=== PATIENT | female | born 1965 | race Caucasian/White ===

== ENCOUNTER 2021-01-23 18:26 | Inpatient (IN) | payer OTHER, SELFPAY ==
[~2021-01-23] VITALS: Ht 154.9 cm; Wt 94.5 kg
[2021-01-23] MEDS ORDERED: ETOMIDATE INJ 20MG/10ML VIAL IV STA (19:08)
[2021-01-23] MEDS ORDERED: ROCURONIUM BROMIDE 50 MG/5 ML VIAL IV ONE (19:10)
[2021-01-23 19:30] LABS: BASO % 0.1 % (0.0-1.0); HEMATOCRIT 39.5 % (36.0-47.0); LYMPH # 0.8 10^3/uL (1.5-5.0); LYMPH % 5.4 % (24.0-44.0); MEAN CORPUSCULAR HEMOGLOBIN 27.1 pg (27.0-33.0); MEAN CORPUSCULAR HGB CONC 30.4 g/dl (32.0-36.5); MEAN CORPUSCULAR VOLUME 89.4 fl (80.0-96.0); MONO % 6.7 % (2.0-8.0); NEUTROPHILS # 13.4 10^3/uL (1.5-8.5); NEUTROPHILS % 87.2 % (36.0-66.0); PLATELET COUNT, AUTOMATED 384 10^3/uL (150-450); RED BLOOD COUNT 4.42 10^6/uL (4.00-5.40); WHITE BLOOD COUNT 15.3 10^3/uL (4.0-10.0)
[2021-01-23 19:53] LABS: ALBUMIN 2.3 GM/DL (3.2-5.2); BILIRUBIN,DIRECT 0.1 MG/DL (0.0-0.2); BILIRUBIN,TOTAL 0.9 MG/DL (0.2-1.0); TOTAL PROTEIN 7.1 GM/DL (6.4-8.2)
--- NOTE | 2021-01-23 20:08 | REP ---
INDICATION: post intubation. COMPARISON: None. TECHNIQUE: Portable FINDINGS: The technique utilized in obtaining the radiograph has magnified the cardiac silhouette and attenuated the interstitial markings. There is an endotracheal tube with the tip of which is in the right mainstem bronchus. Lung beth are clear. The heart is not enlarged. The pleural angles are sharp. The osseous structures are within normal limits. IMPRESSION: Endotracheal tube placement as described above. The tube should be retracted 6 cm. <Electronically signed by Tod Rojo > 01/23/212003
[2021-01-23] MEDS ORDERED: LORazepam 2 MG/ML VIAL IV STA (20:09)
[2021-01-23] MEDS ORDERED: NS 1,000 ML IV ONE (20:10)
--- NOTE | 2021-01-23 20:10 | REPVR ---
PROCEDURE INFORMATION: Exam: CT Head Without Contrast Exam date and time: 01/23/2021 7:20 PM Age: 55 years old Clinical indication: Other: Unresponsive TECHNIQUE: Imaging protocol: Computed tomography of the head without contrast. Radiation optimization: All CT scans at this facility use at least one of these dose optimization techniques: automated exposure control; mA and/or kV adjustment per patient size (includes targeted exams where dose is matched to clinical indication); or iterative reconstruction. COMPARISON: No relevant prior studies available. FINDINGS: Brain: There is minimal patchy low attenuation of deep white matter with small old lacunar infarct in the anterior left jasso radiata. Cerebral ventricles: No ventriculomegaly. Paranasal sinuses: Visualized sinuses are unremarkable. No fluid levels. Mastoid air cells: Visualized mastoid air cells are well aerated. Bones/joints: Unremarkable. No acute fracture. Soft tissues: Unremarkable. IMPRESSION: 1. Minimal chronic ischemic white matter change with small old lacunar infarct anteriorly on the left. 2. Otherwise negative noncontrast head CT. Electronically signed by: Napoleon Marte On 01/23/2021 20:09:43 PM
--- NOTE | 2021-01-23 20:14 | REPVR ---
PROCEDURE INFORMATION: Exam: CT Cervical Spine Without Contrast Exam date and time: 01/23/2021 7:20 PM Age: 55 years old Clinical indication: Other: Unresponsive TECHNIQUE: Imaging protocol: Computed tomography images of the cervical spine without contrast. Radiation optimization: All CT scans at this facility use at least one of these dose optimization techniques: automated exposure control; mA and/or kV adjustment per patient size (includes targeted exams where dose is matched to clinical indication); or iterative reconstruction. COMPARISON: No relevant prior studies available. FINDINGS: Tubes, catheters and devices: ET tube in position. Bones/joints: No acute fracture. Normal alignment. Discs/Spinal canal/Neural foramina: No significant disc protrusion. No severe spinal canal stenosis. No significant neural foraminal narrowing. Lungs: Lung apices are normal. Soft tissues: Unremarkable. IMPRESSION: 1. ET tube in position. 2. Otherwise negative CT cervical spine. No fracture or subluxation is evident and no spinal or foraminal stenosis. Electronically signed by: Napoleon Marte On 01/23/2021 20:13:54 PM
[2021-01-23] MEDS ORDERED: HumuLIN R (REGULAR) INSULIN (NovoLIN R) **100U/ML** PER UNIT IV ONE (20:15)
[2021-01-23] MEDS ORDERED: PROPOFOL 1,000 MG/100 ML VIAL As Ordered ONE (20:39)
[2021-01-23 21:21] LABS: RSV AMPLIFICATION NEGATIVE (NEGATIVE)
[2021-01-23] MEDS ORDERED: propofoL 1,000 MG in IV 1 EA IV SCH (21:55)
[2021-01-23] MEDS ORDERED: MIDAZOLAM HCL 50 MG in D5W 40 ML IV SCH (22:35)
[2021-01-23] MEDS ORDERED: MIDAZOLAM 5MG/ML 1ML VIAL (J2250 PER 1MG) As Ordered ONE (22:39)
[2021-01-23 22:47] LABS: ETHYL ALCOHOL (ETHANOL) 0.003 % (0.000-0.010)
[2021-01-23] MEDS ORDERED: MIDAZOLAM HCL 100 MG in D5W 80 ML IV SCH (23:00)
[2021-01-23] MEDS ORDERED: REFRIGERATOR IV KEYS XX PRN (23:00)
[2021-01-23] MEDS ORDERED: LR 1,000 ML IV SCH (23:35)
[2021-01-23] MEDS: MIDAZOLAM 5MG/ML 1ML VIAL (J2250 PER 1MG) IV PRN (23:40)
--- NOTE | 2021-01-23 23:40 | HPEPDOC ---
[facility] Medical History & Physical Date of Admission Jan 23, 2021 Date of Service: Jan 23, 2021 History and Physical CHIEF COMPLAINT: Altered mental status, respiratory failure HISTORY OF PRESENT ILLNESS: This is a 55-year-old female with unknown past medical history brought in here by EMS after being found down at home. Patient was reported by bystanders to be found down at home. EMS was called and when EMS arrived, patient was covered in feces. She had a episodes of "jerking movement" that which she received 1 dose of Ativan. She had another episodes of jerking movement in the emergency department that was broken with 1 dose of Ativan. She was unresponsive and GCS was less than 7 in the emergency department. Therefore she was emergently intubated for airway protection. REVIEW CBC with leukocytosis with WBC 15,000 and no evidence of bandemia. I- STAT BMP is unremarkable. Her blood sugar was in 400s and she received 1 dose of IV insulin and it was coming down. There is no evidence of anion gap. Lact ate was 2. Liver function tests are almost within normal limit. Alcohol level and urine toxicology negative. Respiratory viral panel including COVID-[address] scan of the brain did not show any evidence of subacute ischemic stroke or intracranial hemorrhage. CT of the neck did not show any evidence of subluxation or fracture. CT of the abdomen to my independent review showed no evidence of acute intra-abdominal pathology. CT of the chest to my independent review show evidence of tree-in-bud appearance in the right upper lobe suggestive of bronchoalveolar pneumonia. NG tube output after intubation show coffee-ground color. ICU was consulted for further work-up and management. ER attending and ER administration contacted and spoke with her brother Lane Knowles. Essentially he knows nothing about her history. There was no other collateral information available in the system or contact. PAST MEDICAL HISTORY: Unknown as patient is currently intubated and sedated. PAST SURGICAL HISTORY: Unknown SOCIAL HISTORY: Unknown FAMILY HISTORY: Unknown ALLERGIES: Please see below. REVIEW OF SYSTEMS: Unable to obtain review of system as patient is currently intubated and sedated. HOME MEDICATIONS: Please see below. PHYSICAL EXAMINATION: VITAL SIGNS: See below GENERAL APPEARANCE: Morbidly obese, not in any acute distress. Unhygienic HEENT: No cervical adenopathy. Right conjunctival hemorrhage. CARDIOVASCULAR: Normal S1-S2 with systolic murmur best heard in the left parasternal border. LUNGS: Clear to auscultation bilaterally. No evidence of wheezing or rhonchi ABDOMEN: Distended but soft, hypoactive bowel sounds. MUSCULOSKELETAL: No evidence of joint effusion or joint swelling. EXTREMITIES: No evidence of pedal edema. Multiple skin breakdown of the lower and upper extremity NEUROLOGICAL: Appears nonfocal. trying to self extubated PSYCHIATRIC: Cannot be assessed. LABORATORY DATA: See below. MICROBIOLOGY: Please see below. ASSESSMENT: This is a 55-year-old female with unknown past medical history brought in here by EMS after being found down at home. #Metabolic encephalopathy -Etiology unclear at this point. Possible post ictal after seizure versus drug intoxication versus infection. -Currently remain intubated and sedated. Will perform sedation holiday tomorrow to assess neurological status. #Acute respiratory failure -Intubated due to inability to protect airway. -Gas exchange seems optimal. Current mechanical ventilator setting is assist control volume control with respiratory rate of 12, tidal volume 420, PEEP 8, FiO2 30%. #Coffee-ground emesis -We'll start Protonix 40 mg IV twice daily. Serial H&H. #Community-acquired pneumonia -There is evidence of tree in bud appearance in the right upper lobe suggestive of bronchoalveolar pneumonia. We will start patient on ceftriaxone and azithromycin. Will order procalcitonin for rapid antibiotic de-escalation. #Lactic acidosis -Likely secondary to seizure. We will trend lactate until normalized. We will keep patient IV fluid. DVT prophylaxis: SCD, due to possible GI bleed GI prophylaxis: Protonix Diet: N.p.o. Critical care time excluding procedure is 60 minutes. Vital Signs Vital Signs Date Time Temp Pulse Resp B/P (MAP) Pulse Ox O2 Delivery O2 Flow Rate FiO2 01/23/21 23:15 85 115/54 (74) 100 30 01/23/21 22:00 Ventilator 01/23/21 21:00 18 01/23/21 18:35 15.0 Laboratory Data Labs 24H Laboratory Tests 2 01/23/21 18:49: Total Bilirubin 0.9, Direct Bilirubin 0.1, Aspartate Amino Transf (AST/SGOT) 83H, Alanine Aminotransferase (ALT/SGPT) 43, Alkaline Phosphatase 156H, Total Protein 7.1, Albumin 2.3L, Albumin/Globulin Ratio 0.5L, Ethyl Alcohol Level 0.003 01/23/21 18:54: POC Glucose (Misc Panel) 426H, POC Sodium (Misc Panel) 138, POC Potassium (Misc Panel) 4.5, POC Chloride (Misc Panel) 101, POC Total CO2 (Misc Panel) 22.0L, POC Blood Urea Nitrogen (Misc Panel 52H, POC Ionized Calcium (Misc Panel) 4.6, POC Creatinine (Misc Panel) 1.2, POC Hematocrit (Misc Panel) 39.0 01/23/21 18:55: Immature Granulocyte % (Auto) 0.6, Neutrophils (%) (Auto) 87.2H, Lymphocytes (%) (Auto) 5.4L, Monocytes (%) (Auto) 6.7, Eosinophils (%) (Auto) 0.0, Basophils (%) (Auto) 0.1, Neutrophils # (Auto) 13.4H, Lymphocytes # (Auto) 0.8L, Monocytes # (Auto) 1.0H, Eosinophils # (Auto) 0.0, Basophils # (Auto) 0.0, Nucleated Red Blood Cells % (auto) 0.0 01/23/21 19:00: POC Lactate (Misc Panel) 2.05*H 01/23/21 19:39: POC pH (Misc Panel) 7.303L, POC Base Excess (Misc Panel) -5.0L, POC Saturated Percent O2 (Misc) 100H, POC pO2 (Misc Panel) 501.0H, POC pCO2 (Misc Panel) 42.5, POC HCO3 (Misc Panel) 21.1L, POC Total CO2 (Misc Panel) 22.0L 01/23/21 20:16: Coronavirus (COVID-19)(PCR) NEGATIVE, Influenza Type A (RT-PCR) NEGATIVE, Influenza Type B (RT-PCR) NEGATIVE, Respiratory Syncytial Virus (PCR) NEGATIVE 01/23/21 21:30: Bedside Glucose (Misc Panel) 383H 01/23/21 23:04: CBC/BMP Laboratory Tests 01/23/21 18:55 Allergies Coded Allergies: Unobtainable (Unverified , 01/23/21) pt is unresponsive. no family present. unable to obtain allergy info A-FIB/CHADSVASC A-FIB History Current/History of A-Fib/PAF?: No EKATERINA HAMEED MD Jan 23, 2021 23:40
[2021-01-23 23:51] LABS: AMPHETAMINES LEVEL URINE NEGATIVE (NEGATIVE); BARBITURATES URINE NEGATIVE (NEGATIVE); BENZODIAZEPINES URINE NEGATIVE (NEGATIVE); CANNABINOIDS URINE NEGATIVE (NEGATIVE); COCAINE METABOLITE URINE NEGATIVE (NEGATIVE); METHADONE URINE NEGATIVE (NEGATIVE); OPIATES URINE NEGATIVE (NEGATIVE); PHENCYCLIDINE URINE NEGATIVE (NEGATIVE)
[2021-01-23] MEDS: PANTOPRAZOLE 40MG VIAL (C9113 PER 1) IV SCH (23:52)
[2021-01-24] VITALS (31 sets, daily range): BP systolic 109–154; BP diastolic 55–74
[2021-01-24] MEDS: MIDAZOLAM INJ 2MG/2ML VIAL (J2250 PER 1MG) IV PRN ×3 (00:50→12:45)
--- NOTE | 2021-01-24 01:11 | REPVR ---
PROCEDURE INFORMATION: Exam: CT Chest Without Contrast; Diagnostic Exam date and time: 01/23/2021 10:55 PM Age: 55 years old Clinical indication: Pain; Other: Chest; Additional info: Found unresponsive assess for consolidation TECHNIQUE: Imaging protocol: Diagnostic computed tomography of the chest without contrast. Radiation optimization: All CT scans at this facility use at least one of these dose optimization techniques: automated exposure control; mA and/or kV adjustment per patient size (includes targeted exams where dose is matched to clinical indication); or iterative reconstruction. COMPARISON: CR Chest, 1 view 01/23/2021 9:11 PM FINDINGS: Tubes, catheters and devices: ET tube above the debora. NG tube extending into the stomach. Lungs: Minimal infiltrates are noted in the right upper lobe and to a lesser degree the right lower lobe and right perihilar region. Pleural spaces: Unremarkable. No pneumothorax. No pleural effusion. Heart: Unremarkable. No cardiomegaly. No pericardial effusion. Mediastinal space: Slight nodularity of anterior mediastinal fat which is nonspecific in a patient of this age. Aorta: Unremarkable. No aortic aneurysm. Lymph nodes: Numerous mediastinal nodes which are borderline overall. Bones/joints: Unremarkable. No acute fracture. Soft tissues: Diffuse subcutaneous edema about the chest. IMPRESSION: 1. ET tube above the debora and NG tube extending into the stomach. 2. Minimal right pulmonary infiltrates in the right upper lobe and to a lesser degree right lower lobe and right perihilar region generally which may extend into the central right middle lobe. 3. Borderline mediastinal adenopathy which may be reactive. 4. Diffuse subcutaneous edema about the chest. Electronically signed by: Napoleon Marte On 01/24/2021 01:11:24 AM
--- NOTE | 2021-01-24 01:19 | REPVR ---
PROCEDURE INFORMATION: Exam: CT Abdomen And Pelvis Without Contrast Exam date and time: 01/23/2021 10:23 PM Age: 55 years old Clinical indication: Abdominal pain; Generalized; Additional info: Found unresponsive, coffee ground emesis from ngt TECHNIQUE: Imaging protocol: Computed tomography of the abdomen and pelvis without contrast. Radiation optimization: All CT scans at this facility use at least one of these dose optimization techniques: automated exposure control; mA and/or kV adjustment per patient size (includes targeted exams where dose is matched to clinical indication); or iterative reconstruction. COMPARISON: CR Chest, 1 view 01/23/2021 9:11 PM FINDINGS: Tubes, catheters and devices: NG tube in the stomach. Liver: Normal. No mass. Gallbladder and bile ducts: Contracted gallbladder with question of faint gallstone in the neck. Pancreas: Pancreatic atrophy for age. Spleen: Normal. No splenomegaly. Adrenal glands: Normal. No mass. Kidneys and ureters: Normal. No hydronephrosis. Stomach and bowel: Much of the colon is collapsed or contracted. Minimal wall thickening is not excluded. Appendix: A normal appendix is seen. Intraperitoneal space: Unremarkable. No free air. No significant fluid collection. Vasculature: Unremarkable. No abdominal aortic aneurysm. Lymph nodes: Unremarkable. No enlarged lymph nodes. Urinary bladder: There is a Gama catheter in the bladder. Reproductive: Unremarkable as visualized. Bones/joints: Facet arthropathy of the lumbar spine. Soft tissues: Mild subcutaneous edema about the abdomen and pelvis. IMPRESSION: 1. Question of faint gallstone in the gallbladder neck. 2. Gama catheter in the bladder and NG tube in the stomach. 3. Subcutaneous edema about the abdomen and pelvis which may reflect generalized anasarca. 4. Pancreatic atrophy for age. 5. Question of minimal nonspecific pancolitis. Electronically signed by: Napoleon Marte On 01/24/2021 01:19:41 AM
[2021-01-24] MEDS: propofoL 1,000 MG in IV 1 EA IV SCH ×2 (02:16→11:25)
[2021-01-24] MEDS: cefTRIAXone SOD 2 GM in D5W MINI-BAG PLUS 50 ML IV SCH ×2 (02:17→23:45)
--- NOTE | 2021-01-24 02:38 | REPVR ---
PROCEDURE INFORMATION: Exam: XR Chest Exam date and time: 01/24/2021 2:19 AM Age: 55 years old Clinical indication: Other: Confirmation of placement of cvc TECHNIQUE: Imaging protocol: XR of the chest. Views: 1 view. COMPARISON: CT Chest without contrast 01/23/2021 10:48 PM FINDINGS: Tubes, catheters and devices: ET tube approximately 2.6 cm above the debora. NG tube forming a loop in the stomach. Right internal jugular central line to the mid to distal superior vena cava. Lungs: Unremarkable. No consolidation. Pleural spaces: Unremarkable. No pleural effusion. No pneumothorax. Heart/Mediastinum: Unremarkable. No cardiomegaly. Bones/joints: Unremarkable. IMPRESSION: 1. ET tube approximately 2.6 cm above the debora. 2. NG tube extending into the stomach. 3. Right internal jugular central line to the mid to distal superior vena cava. 4. Otherwise negative supine chest. Electronically signed by: Napoleon Marte On 01/24/2021 02:38:11 AM
[2021-01-24 02:50] LABS: APPEARANCE, URINE CLOUDY (CLEAR); BILIRUBIN, URINE AUTO NEGATIVE (NEGATIVE); BLOOD, URINE BLOOD 3+ (NEGATIVE); COLOR, URINE AMBER (YELLOW); GLUCOSE, URINE (UA) AUTO 3+ mg/dL (NEGATIVE); KETONE, URINE AUTO 1+ mg/dL (NEGATIVE); LEUKOCYTE ESTERASE, URINE AUTO NEGATIVE (NEGATIVE); NITRITE, URINE AUTO NEGATIVE (NEGATIVE); PROTEIN, URINE AUTO 3+ mg/dL (NEGATIVE); SPECIFIC GRAVITY URINE AUTO 1.026 (1.002-1.035); UROBILINOGEN, URINE AUTO 0.2 mg/dL (0.0-2.0)
[2021-01-24 02:55] LABS: BACTERIA, URINE AUTO 1+ (NEGATIVE); MUCUS, URINE SMALL (NEGATIVE); RBC, URINE AUTO TNTC /HPF (0-3); SQUAMOUS EPITHELIAL CELL UR AU 5 /HPF (0-6); WBC, URINE AUTO 28 /HPF (0-3)
[2021-01-24 03:19] LABS: ACETAMINOPHEN LEVEL < 2.0 UG/ML (10.0-30.0); CPK CREATINE PHOSPHOKINASE 430 U/L (26-192); MAGNESIUM LEVEL 2.1 MG/DL (1.8-2.4); NT-PRO BNP 3636 PG/ML (<125); PHOSPHORUS LEVEL 4.2 MG/DL (2.5-4.9); SALICYLATE LEVEL 1.8 MG/DL (5.0-30.0); TROPONIN I 0.04 NG/ML (< 0.10)
[2021-01-24] MEDS: AZITHROMYCIN INJ 500 MG, VIAL MATE ADAPTER 1 EACH in NS 250 ML IV SCH (03:56)
[2021-01-24 05:27] LABS: BASO % 0.1 % (0.0-1.0); EOS % 0.1 % (0.0-3.0); HEMOGLOBIN 10.6 g/dl (12.0-15.5); LYMPH # 1.5 10^3/uL (1.5-5.0); LYMPH % 9.6 % (24.0-44.0); MEAN CORPUSCULAR HEMOGLOBIN 27.7 pg (27.0-33.0); MEAN CORPUSCULAR HGB CONC 31.2 g/dl (32.0-36.5); MONO # 1.5 10^3/uL (0.0-0.8); MONO % 9.6 % (2.0-8.0); NEUTROPHILS # 12.4 10^3/uL (1.5-8.5); NEUTROPHILS % 80.2 % (36.0-66.0); PLATELET COUNT, AUTOMATED 314 10^3/uL (150-450); RED BLOOD COUNT 3.82 10^6/uL (4.00-5.40); WHITE BLOOD COUNT 15.5 10^3/uL (4.0-10.0)
[2021-01-24 05:55] LABS: ALBUMIN 1.8 GM/DL (3.2-5.2); BILIRUBIN,TOTAL 0.6 MG/DL (0.2-1.0); CALCIUM LEVEL 8.4 MG/DL (8.5-10.1); CREATININE FOR GFR 1.58 MG/DL (0.55-1.30); GLOMERULAR FILTRATION RATE 36.4 (>51); POTASSIUM SERUM 3.3 MEQ/L (3.5-5.1); TOTAL PROTEIN 5.6 GM/DL (6.4-8.2)
[2021-01-24] MEDS ORDERED: HEPARIN SOD (PORCINE) 5000UNITS/ML 1ML VIAL/SYRINGE SC SCH (06:00)
[2021-01-24] MEDS ORDERED: GLUCAGON INJ 1MG VIAL SC PRN (06:10)
[2021-01-24] MEDS ORDERED: DEXTROSE 50% 50 ML SYRINGE IV PRN (06:10)
[2021-01-24] MEDS ORDERED: GLUCOSE 4GM CHEW TABLET PO PRN (06:10)
[2021-01-24] MEDS: HumaLOG INSULIN (NovoLOG) PER UNIT SC SCH ×4 (06:52→23:49)
[2021-01-24] MEDS: PANTOPRAZOLE 40MG VIAL (C9113 PER 1) IV SCH (08:50)
[2021-01-24] MEDS: CHLORHEXIDINE GLUCONATE 0.12 % 15ML UDC (PERIDEX ORAL RINSE) MT SCH ×2 (08:50→20:29)
[2021-01-24] MEDS ORDERED: LEVEMIR (INSULIN DETEMIR) 1 UNITS/0.01ML SC SCH (09:00)
[2021-01-24] MEDS: UNRESOLVED CLARIFICATION ENTRY XX SCH (09:40)
[2021-01-24] MEDS ORDERED: FUROSEMIDE 100MG/10ML VIAL (J1940) IV ONE (10:00)
[2021-01-24] MEDS ORDERED: POTASSIUM CHLORIDE 10% LIQ 20 MEQ/15 ML UDC PO ONE ×2 (10:00→17:55)
--- NOTE | 2021-01-24 10:03 | IPNPDOC ---
Subjective Date Seen The patient was seen on 01/24/21. Subjective Chief Complaint/HPI Remains intubated. She does opens her eyes off sedations but doesn't follow any purposeful commands. Her eyes are favoring right gaze and doesn't follow to the left. 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 She was reported to be depressed. She contracted COVID-19 several months ago and has been pretty debilitated since then. General: Reports: ROS Unobtainable Objective Physical Examination General Exam: Positive: No Acute Distress Eye Exam: Negative: Sclera icteric ENT Exam: Positive: Atraumatic Neck Exam: Positive: Supple; Negative: JVD Chest Exam: Positive: Clear to auscultation Heart Exam: Positive: Rate Normal, Regular Rhythm, Murmurs Abdomen Exam: Positive: BS Hypoactive, Soft; Negative: Tenderness Extremity Exam: Positive: Edema; Negative: Clubbing, Cyanosis Skin Exam: Positive: Breakdown (multiple skin breakdowns of the extremities), Lesion; Negative: Rash Psych Exam: Positive: Other (altered mentation) Assessment /Plan Assessment This is a 55-year-old female with unknown past medical history brought in here by EMS after being found down at home. Plan/VTE VTE Prophylaxis Ordered?: Yes Plan #Metabolic encephalopathy -Etiology unclear at this point. Possible post ictal after seizure versus drug intoxication versus infection vs CVA. -Currently remain intubated and sedated. She's favoring right gaze off sedation. Doesn't follow any commands. -Will consider getting brain MRI. #Acute respiratory failure -Intubated due to inability to protect airway. -Gas exchange seems optimal. Current mechanical ventilator setting is assist control volume control with respiratory rate of 12, tidal volume 420, PEEP 8, FiO2 30%. #MAURISIO -I suspect cardiorenal syndrome given elevated proBNP and renal function wors ened with IVF administration. Will hold IVF and give lasix 60mg x 1. Will closely monitor I&O and renal function. #Coffee-ground emesis - resolved. -Protonix changed to once daily. #Community-acquired pneumonia -There is evidence of tree in bud appearance in the right upper lobe suggestive of bronchoalveolar pneumonia. Continue with ceft/azithro day 2. F/u procalcitonin for quick abx de-escalation. #Lactic acidosis -Likely secondary to seizure. We will trend lactate until normalized. We will keep patient IV fluid. #hyperglycemia -she received one dose of insulin IV in the ER 10U. She received another 10 units of lispro. Will start her on 15U of levemir. Check hemoglobin A1c. She's n ot in DKA. #hypokalemia -repleted. DVT prophylaxis: Heparin Subcutaneous GI prophylaxis: Protonix Diet: N.p.o. Critical care time excluding procedure is 45 minutes. Disposition continue icu care. VS, I&O, 24H, Fishbone Vital Signs/I&O Vital Signs Date Time Temp Pulse Resp B/P (MAP) Pulse Ox O2 Delivery O2 Flow Rate FiO2 01/24/21 09:00 84 117/55 (75) 100 Ventilator 30 01/24/21 08:00 97.6 20 01/23/21 18:35 15.0 I&O- Last 24 Hours up to 6 AM 01/24/21 06:00 Intake Total 1235 ml Output Total 475 ml Balance 760 ml Laboratory Data 24H LABS Laboratory Tests 2 01/23/21 18:49: Total Bilirubin 0.9, Direct Bilirubin 0.1, Aspartate Amino Transf (AST/SGOT) 83H, Alanine Aminotransferase (ALT/SGPT) 43, Alkaline Phosphatase 156H, Total Protein 7.1, Albumin 2.3L, Albumin/Globulin Ratio 0.5L, Ethyl Alcohol Level 0.003 01/23/21 18:54: POC Glucose (Misc Panel) 426H, POC Sodium (Misc Panel) 138, POC Potassium (Misc Panel) 4.5, POC Chloride (Misc Panel) 101, POC Total CO2 (Misc Panel) 22.0L, POC Blood Urea Nitrogen (Misc Panel 52H, POC Ionized Calcium (Misc Panel) 4.6, POC Creatinine (Misc Panel) 1.2, POC Hematocrit (Misc Panel) 39.0 01/23/21 18:55: Immature Granulocyte % (Auto) 0.6, Neutrophils (%) (Auto) 87.2H, Lymphocytes (%) (Auto) 5.4L, Monocytes (%) (Auto) 6.7, Eosinophils (%) (Auto) 0.0, Basophils (%) (Auto) 0.1, Neutrophils # (Auto) 13.4H, Lymphocytes # (Auto) 0.8L, Monocytes # (Auto) 1.0H, Eosinophils # (Auto) 0.0, Basophils # (Auto) 0.0, Nucleated Red Blood Cells % (auto) 0.0 01/23/21 19:00: POC Lactate (Misc Panel) 2.05*H 01/23/21 19:39: POC pH (Misc Panel) 7.303L, POC Base Excess (Misc Panel) -5.0L, POC Saturated Percent O2 (Misc) 100H, POC pO2 (Misc Panel) 501.0H, POC pCO2 (Misc Panel) 42.5, POC HCO3 (Misc Panel) 21.1L, POC Total CO2 (Misc Panel) 22.0L 01/23/21 20:16: Coronavirus (COVID-19)(PCR) NEGATIVE, Influenza Type A (RT-PCR) NEGATIVE, Influenza Type B (RT-PCR) NEGATIVE, Respiratory Syncytial Virus (PCR) NEGATIVE 01/23/21 21:30: Bedside Glucose (Misc Panel) 383H 01/23/21 23:04: Urine Opiates Screen NEGATIVE, Urine Methadone Screen NEGATIVE, Urine Barbiturates Screen NEGATIVE, Urine Phencyclidine Screen NEGATIVE, Urine Amphetamines Screen NEGATIVE, Urine Benzodiazepines Screen NEGATIVE, Urine Cocaine Metabolite Screen NEGATIVE, Urine Cannabinoids Screen NEGATIVE 01/23/21 23:31: Bedside Glucose (Misc Panel) 286H 01/24/21 02:25: Urine Color JAVIER, Urine Appearance CLOUDYH, Urine pH 5.0, Urine Specific [place] 1.026, Urine Protein 3+H, Urine Glucose (Auto)(UA) 3+H, Urine Ketones (Auto) 1+H, Urine Blood 3+H, Urine Nitrite NEGATIVE, Urine Bilirubin NEGATIVE, Urine Urobilinogen 0.2, Urine Leukocyte Esterase (Auto) NEGATIVE, Urine WBC (Auto) 28H, Urine RBC (Auto) TNTCH, Urine Hyaline Casts (Auto) 26, Urine Bacteria (Auto) 1+H, Urine Squamous Epithelial Cells 5, Urine Mucus (Auto) SMALL, Urine Sperm (Auto) , Phosphorus Level 4.2, Magnesium Level 2.1, Total Creatine Kinase 430H, Troponin I 0.04, UD-Ola-J-Type Natriuretic Peptide 3636H, Salicylates Level 1.8L, Acetaminophen Level < 2.0L 01/24/21 05:15: Immature Granulocyte % (Auto) 0.4, Neutrophils (%) (Auto) 80.2H, Lymphocytes (%) (Auto) 9.6L, Monocytes (%) (Auto) 9.6H, Eosinophils (%) (Auto) 0.1, Basophils (%) (Auto) 0.1, Neutrophils # (Auto) 12.4H, Lymphocytes # (Auto) 1.5, Monocytes # (Auto) 1.5H, Eosinophils # (Auto) 0.0, Basophils # (Auto) 0.0, Nucleated Red Blood Cells % (auto) 0.0, Anion Gap 16, Glomerular Filtration Rate 36.4L, Calcium Level 8.4L, Total Bilirubin 0.6, Aspartate Amino Transf (AST/SGOT) 35, Alanine Aminotransferase (ALT/SGPT) 32, Alkaline Phosphatase 127H, Total Protein 5.6#L, Albumin 1.8#L, Albumin/Globulin Ratio 0.5L CBC/BMP Laboratory Tests 01/23/21 18:55 01/24/21 05:15 Microbiology Microbiology 01/24/21 Blood Culture, Received Pending 01/23/21 Blood Culture, Received Pending EKATERINA HAMEED MD Jan 24, 2021 10:03
--- NOTE | 2021-01-24 10:07 | ROOPDOC ---
[facility] Report Of Operation Report of Operation DATE OF PROCEDURE: 01/24/21 PROCEDURE PERFORMED: Right IJ central line insertion. PREPROCEDURE DIAGNOSES: sepsis, respiratory failure. POSTPROCEDURE DIAGNOSES: sepsis, respiratory failure. SURGEON: Dr Jovani MD ANESTHESIA: Local lidocaine 1%. ESTIMATED BLOOD LOSS: Approximately 1 mL. DESCRIPTION OF PROCEDURE: . This procedure was done due to medical necessity as there's no family members or friends who can give consent. A time out was performed. My hands were washed immediately prior to the procedure. I wore a surgical cap, mask with protective eyewear, full gown and sterile gloves throughout the procedure. The patient was placed in Trendelenburg position. Right neck region was prepped using chlorhexidine scrub and draped in sterile fashion using a full drape and sterile probe cover and sterile gel employed. The medial and lateral heads of the sternocleidomastoid muscle were identified as was the carotid pulse. The Internal Jugular vein was identified using the ultrasound. Anesthesia was achieved over the vein using 1% lidocaine. Using real-time out of plane guidance, the introducer needle was inserted into the Internal Jugular vein under direct ultrasound visualization. Venous blood was withdrawn. The syringe was removed and a guidewire was advanced into the introducer needle. The guidewire was visualized in the Internal Jugular Vein by ultrasound. A small incision was made at the skin surface with a scalpel and the introducer needle was exchanged for a dilator over the guidewire. After appropriate dilation was obtained, the dilator was exchanged over the wire for a triple lumen central venous catheter. The wire was removed and the catheter was sutured in place at 15 cm. A sterile sorbaview shield was placed over the catheter at the insertion site. The patient tolerated the procedure without any hemodynamic compromise. At time of procedure completion, all ports aspirated and flushed properly. Post- procedure chest x-ray showed catheter tip in distal SVC and no PTX. Estimated blood loss is 1cc. EKATERINA HAMEED MD Jan 24, 2021 10:07
[2021-01-24 10:13] LABS: HEMOGLOBIN A1c 12.7 %
--- NOTE | 2021-01-24 12:16 | REP ---
INDICATION: checking for metals, MRI brain needs to be done. COMPARISON: None TECHNIQUE: Bilateral AP radiograph of the forearm assess for metallic artifact FINDINGS: There is no abnormal internal metallic artifact. Limited exam showing no gross fracture. IMPRESSION: As above <Electronically signed by Tod Rojo > 01/24/21 [id number]
--- NOTE | 2021-01-24 12:17 | REP ---
INDICATION: checking for metal, MRI brain needs to be done. COMPARISON: None. TECHNIQUE: AP lower extremity bilateral search for metallic artifact. FINDINGS: There is no metallic artifact. There is no gross fracture. Degenerative changes are seen involving the knees and ankles. IMPRESSION: No metallic artifact <Electronically signed by Tod Rojo > 01/24/21 [id number]
--- NOTE | 2021-01-24 12:24 | REP ---
INDICATION: checking for metal, MRI brain needs to be done. COMPARISON: None. TECHNIQUE: Multiple images FINDINGS: AP and lateral skull: No abnormal metallic artifact. AP humerus bilateral: No abnormal internal metallic artifact. AP chest: Nasogastric and endotracheal tubes present. The lung beth are clear and the heart is not enlarged. The osseous structures are intact. There is a right-sided internal jugular central venous catheter the tip of which is in the region the superior vena cava. There is no evidence of abnormal internal metallic artifact. AP abdomen and pelvis: Nasogastric tube seen coiled in the stomach fundus. There is no abnormal internal metallic artifact. There are no metallic stents. The osseous structures are intact. AP femur bilateral: There are no abnormal internal metallic radiodensities. There are no metallic stents. Hip in knee degenerative changes are present. IMPRESSION: There is no evidence of an internal metallic radiodensity that would render this patient a non candidate for MRI. Findings as described above. <Electronically signed by Tod Rojo > 01/24/21 [id number]
[2021-01-24] MEDS ORDERED: MIDAZOLAM 5MG/ML 1ML VIAL (J2250 PER 1MG) As Ordered ONE (13:18)
[2021-01-24] MEDS ORDERED: MIDAZOLAM INJ 2MG/2ML VIAL (J2250 PER 1MG) IV ONE (13:30)
--- NOTE | 2021-01-24 15:19 | REPVR ---
PROCEDURE INFORMATION: Exam: MR Head Without Contrast Exam date and time: 01/24/2021 1:31 PM Age: 55 years old Clinical indication: Coma or unconsciousness; Patient HX: PT found unresponsive. Vented. Suspect stroke. PT medicated; Additional info: Suspected stroke, right gazed TECHNIQUE: Imaging protocol: MR of the head without contrast. COMPARISON: CT Head without contrast 01/23/2021 6:54 PM FINDINGS: Brain: There is mild patchy increased T2 signal intensity within the bilateral cerebral periventricular white matter, consistent with chronic microvascular ischemic changes. Tiny chronic lacunar infarction in the left deep frontal white matter.There is no abnormal diffusion weighted signal intensity to suggest an acute ischemic event. On gradient echo imaging, no susceptibility changes are seen to represent parenchymal calcification or degraded blood products. There is mild diffuse cerebral atrophy present, consistent with this patient's age. Examination of the posterior fossa demonstrates no significant abnormality. Cerebral ventricles: The ventricular system demonstrates mild diffuse compensatory enlargement. Bones/joints: Unremarkable. Paranasal sinuses: Normal as visualized. No acute sinusitis. Mastoid air cells: Normal as visualized. No mastoid effusion. Orbital cavity: Unremarkable. Soft tissues: Unremarkable. IMPRESSION: 1. No acute infarction, masses or hemorrhage is seen. No acute intracranial abnormality is identified. 2. Diffuse age-related cerebral atrophy and mild chronic microvascular white matter ischemic changes, without evidence of an acute intracranial abnormality. 3. There has been no adverse interval change since the previous study. Electronically signed by: Aba Robertson On 01/24/2021 15:19:00 PM
--- NOTE | 2021-01-24 15:52 | REP ---
INDICATION: ET tube moved COMPARISON: 01/23/2021 at 9:12 p.m. TECHNIQUE: Portable AP view of the chest FINDINGS: Endotracheal tube 2.5 cm above the debora. Nasogastric tube courses below left hemidiaphragm in satisfactory position. Cardiac silhouette is normal. Lung beth demonstrate stable appearance with subtle upper lobe fibroatelectatic changes suggested. No focal consolidation. No effusion. No pneumothorax. Skeletal structures intact. IMPRESSION: 1. Endotracheal tube and nasogastric tube in satisfactory position. 2. Lung beth are stable. <Electronically signed by Parish Amaya > 01/24/21 [id number]
[2021-01-24 17:48] LABS: CALCIUM LEVEL 8.5 MG/DL (8.5-10.1); CREATININE FOR GFR 1.7 MG/DL (0.55-1.30); GLOMERULAR FILTRATION RATE 33.5 (>51); POTASSIUM SERUM 2.9 MEQ/L (3.5-5.1)
[2021-01-24] MEDS ORDERED: KCL 20MEQ IN 100ML SWI (KRUN) 20 MEQ in IV 1 EA IV ONE ×2 (18:00)
[2021-01-24 18:21] LABS: MAGNESIUM LEVEL 1.9 MG/DL (1.8-2.4)
[2021-01-24] MEDS ORDERED: HOME MED LIST COMPLETE! XX SCH (18:30)
[2021-01-24 18:48] LABS: VENOUS HCO3 31.1 MEQ/L (23.0-27.0); VENOUS PARTIAL PRESSURE CO2 46.2 mmHg (38.0-50.0); VENOUS PH 7.446 UNITS (7.330-7.430); VENOUS STANDARD HCO3 29.9 MEQ/L; VENOUS TOTAL CO2 32.5 MEQ/L (24.0-28.0)
[2021-01-24 18:50] LABS: VENOUS O2 SATURATION 95.9 % (60.0-80.0)
[2021-01-24] MEDS: POLYVINYL ALCOHOL OPHTH SOLN 15 ML(LIQUITEARS) OU SCH (20:29)
[2021-01-24] MEDS: HEPARIN SOD (PORCINE) 5000UNITS/ML 1ML VIAL/SYRINGE SQ SCH (22:07)
[2021-01-25] VITALS (13 sets, daily range): BP systolic 143–179; BP diastolic 70–85
[2021-01-25] MEDS: AZITHROMYCIN INJ 500 MG, VIAL MATE ADAPTER 1 EACH in NS 250 ML IV SCH (00:42)
[2021-01-25] MEDS: UNRESOLVED CLARIFICATION ENTRY XX SCH (03:36)
[2021-01-25] MEDS: propofoL 1,000 MG in IV 1 EA IV SCH (03:36)
[2021-01-25 04:39] LABS: BASO % 0.1 % (0.0-1.0); EOS # 0.1 10^3/uL (0.0-0.5); EOS % 0.5 % (0.0-3.0); HEMATOCRIT 35.3 % (36.0-47.0); HEMOGLOBIN 11.2 g/dl (12.0-15.5); LYMPH # 1.7 10^3/uL (1.5-5.0); LYMPH % 9.8 % (24.0-44.0); MEAN CORPUSCULAR HEMOGLOBIN 27.9 pg (27.0-33.0); MEAN CORPUSCULAR HGB CONC 31.7 g/dl (32.0-36.5); MONO # 1.6 10^3/uL (0.0-0.8); MONO % 9.3 % (2.0-8.0); NEUTROPHILS # 13.6 10^3/uL (1.5-8.5); NEUTROPHILS % 79.9 % (36.0-66.0); PLATELET COUNT, AUTOMATED 293 10^3/uL (150-450); RED BLOOD COUNT 4.01 10^6/uL (4.00-5.40)
[2021-01-25] MEDS: MIDAZOLAM INJ 2MG/2ML VIAL (J2250 PER 1MG) IV PRN ×2 (04:53→06:32)
[2021-01-25 05:09] LABS: ALBUMIN 1.7 GM/DL (3.2-5.2); BILIRUBIN,TOTAL 0.5 MG/DL (0.2-1.0); CALCIUM LEVEL 8.4 MG/DL (8.5-10.1); CREATININE FOR GFR 1.51 MG/DL (0.55-1.30); GLOMERULAR FILTRATION RATE 38.4 (>51); POTASSIUM SERUM 3.3 MEQ/L (3.5-5.1); TOTAL PROTEIN 5.5 GM/DL (6.4-8.2)
[2021-01-25] MEDS: HumaLOG INSULIN (NovoLOG) PER UNIT SC SCH ×3 (05:13→16:55)
[2021-01-25] MEDS: HEPARIN SOD (PORCINE) 5000UNITS/ML 1ML VIAL/SYRINGE SQ SCH ×3 (06:32→21:01)
[2021-01-25] MEDS ORDERED: PANTOPRAZOLE 40MG VIAL (C9113 PER 1) IV SCH (09:00)
[2021-01-25] MEDS: LEVEMIR (INSULIN DETEMIR) 1 UNITS/0.01ML SC SCH (09:38)
[2021-01-25] MEDS: POLYVINYL ALCOHOL OPHTH SOLN 15 ML(LIQUITEARS) OU SCH ×3 (09:39→21:01)
[2021-01-25] MEDS: CHLORHEXIDINE GLUCONATE 0.12 % 15ML UDC (PERIDEX ORAL RINSE) MT SCH (09:39)
[2021-01-25] MEDS ORDERED: POTASSIUM CHLORIDE 10% LIQ 20 MEQ/15 ML UDC PO ONE (10:00)
--- NOTE | 2021-01-25 10:18 | IPNPDOC ---
Subjective Date Seen The patient was seen on 01/25/21. Subjective Chief Complaint/HPI Patient woke up and now following commands. She denies of pain. General: Reports: ROS Unobtainable Objective Physical Examination General Exam: Positive: Alert, Cooperative, No Acute Distress Eye Exam: Negative: Sclera icteric ENT Exam: Positive: Atraumatic Neck Exam: Positive: Supple; Negative: JVD Chest Exam: Positive: Clear to auscultation Heart Exam: Positive: Rate Normal, Regular Rhythm, Murmurs Abdomen Exam: Positive: Normal bowel sounds, Soft; Negative: Tenderness Extremity Exam: Positive: Edema; Negative: Clubbing, Cyanosis Skin Exam: Positive: Breakdown (multiple skin breakdowns of the extremities), Lesion; Negative: Rash Psych Exam: Positive: Mental status NL Assessment /Plan Assessment This is a 55-year-old female with unknown past medical history brought in here by EMS after being found down at home. Plan/VTE VTE Prophylaxis Ordered?: Yes Plan #Metabolic encephalopathy - resolved -I believe it's multifactorial; hyperglycemia, uncontrolled DM, HTN, MAURISIO, infection, malnutrition. -MRI brain negative for CVA or ICH. #Acute respiratory failure -Intubated due to inability to protect airway. -Gas exchange seems optimal. Current mechanical ventilator setting is assist control volume control with respiratory rate of 12, tidal volume 420, PEEP 8, FiO2 30%. Tolerating Spont breathing trial. Will extubate today. #MAURISIO vs CKD -We don't have any baseline Cr to compare with but I suspect this is hypertensive and diabetic nephropathy given significant glucosuria, proteinuria. I am checking iPTH. -Will start her on lisinopril for renal protective effect. #HTN -will start her on lisinopril 20mg daily. #Coffee-ground emesis - resolved. #Community-acquired pneumonia -There is evidence of tree in bud appearance in the right upper lobe suggestive of bronchoalveolar pneumonia. Continue with ceft/azithro day 3. To complete for total of 5 days. #Lactic acidosis - resolved. -Likely due to dehydration. #Uncontrolled DM -Hemoglobin A1c 13%. Started her on 15U levemir yesterday but morning FBS was 60. Therefore, dose decreased down 5U. #hypokalemia -repleted. DVT prophylaxis: Heparin Subcutaneous GI prophylaxis: not indicated. Diet: Advance diet as tolerated once she's extubated. Critical care time excluding procedure is 45 minutes. Disposition continue icu care. VS, I&O, 24H, Fishbone Vital Signs/I&O Vital Signs Date Time Temp Pulse Resp B/P (MAP) Pulse Ox O2 Delivery O2 Flow Rate FiO2 01/25/21 09:39 179/84 01/25/21 08:00 30 01/25/21 07:46 98.4 91 15 100 Ventilator 01/23/21 18:35 15.0 I&O- Last 24 Hours up to 6 AM 01/25/21 06:00 Intake Total 710 ml Output Total 615 ml Balance 95 ml Laboratory Data 24H LABS Laboratory Tests 2 01/24/21 10:53: Bedside Glucose (Misc Panel) 251H 01/24/21 17:15: Anion Gap 9, Glomerular Filtration Rate 33.5L, Calcium Level 8.5, Magnesium Level 1.9 01/24/21 17:23: Bedside Glucose (Misc Panel) 151H 01/24/21 18:23: Blood Gas Bicarbonate Standard 29.9, Venous Blood pH 7.446H, Venous Blood Partial Pressure CO2 46.2, Venous Blood Partial Pressure O2 78.0H, Venous Blood Total Carbon Dioxide 32.5H, Venous Blood HCO3 31.1H, Venous Blood Oxygen Saturation 95.9H, Venous Blood Base Excess 6.0H 01/24/21 23:48: Bedside Glucose (Misc Panel) 71 01/25/21 04:25: Immature Granulocyte % (Auto) 0.4, Neutrophils (%) (Auto) 79.9H, Lymphocytes (%) (Auto) 9.8L, Monocytes (%) (Auto) 9.3H, Eosinophils (%) (Auto) 0.5, Basophils (%) (Auto) 0.1, Neutrophils # (Auto) 13.6H, Lymphocytes # (Auto) 1.7, Monocytes # (Auto) 1.6H, Eosinophils # (Auto) 0.1, Basophils # (Auto) 0.0, Nucleated Red Blood Cells % (auto) 0.0, Anion Gap 6L, Glomerular Filtration Rate 38.4L, Calcium Level 8.4L, Total Bilirubin 0.5, Aspartate Amino Transf (AST/SGOT) 26, Alanine Aminotransferase (ALT/SGPT) 28, Alkaline Phosphatase 116, Total Protein 5.5L, Albumin 1.7L, Albumin/Globulin Ratio 0.4L CBC/BMP Laboratory Tests 9/18/21 17:15 01/25/21 04:25 Microbiology Microbiology 01/24/21 Blood Culture - Preliminary, Resulted No growth after 24 hours . All specim... 01/23/21 Blood Culture - Preliminary, Resulted No growth after 24 hours . All specim... EKATERINA HAMEED MD Jan 25, 2021 10:18
[2021-01-25] MEDS: D5W 1,000 ML IV SCH (18:25)
[2021-01-25] MEDS ORDERED: HumaLOG INSULIN (NovoLOG) PER UNIT SC SCH (21:00)
[2021-01-26] VITALS (20 sets, daily range): BP systolic 138–190; BP diastolic 72–95
[2021-01-26] MEDS: UNRESOLVED CLARIFICATION ENTRY XX SCH (00:01)
[2021-01-26] MEDS: cefTRIAXone SOD 2 GM in D5W MINI-BAG PLUS 50 ML IV SCH ×2 (00:11→23:59)
[2021-01-26] MEDS: HumaLOG INSULIN (NovoLOG) PER UNIT SC SCH ×4 (00:18→17:13)
[2021-01-26] MEDS: AZITHROMYCIN INJ 500 MG, VIAL MATE ADAPTER 1 EACH in NS 250 ML IV SCH (01:04)
[2021-01-26 04:57] LABS: BASO % 0.2 % (0.0-1.0); EOS # 0.2 10^3/uL (0.0-0.5); EOS % 1.1 % (0.0-3.0); HEMATOCRIT 34.2 % (36.0-47.0); HEMOGLOBIN 10.5 g/dl (12.0-15.5); LYMPH # 1.6 10^3/uL (1.5-5.0); LYMPH % 11.1 % (24.0-44.0); MEAN CORPUSCULAR HEMOGLOBIN 27.6 pg (27.0-33.0); MEAN CORPUSCULAR HGB CONC 30.7 g/dl (32.0-36.5); MONO # 1.2 10^3/uL (0.0-0.8); MONO % 8.2 % (2.0-8.0); NEUTROPHILS # 11.3 10^3/uL (1.5-8.5); NEUTROPHILS % 79.1 % (36.0-66.0); PLATELET COUNT, AUTOMATED 240 10^3/uL (150-450); WHITE BLOOD COUNT 14.3 10^3/uL (4.0-10.0)
[2021-01-26 05:27] LABS: ALBUMIN 1.6 GM/DL (3.2-5.2); BILIRUBIN,TOTAL 0.5 MG/DL (0.2-1.0); CALCIUM LEVEL 8.1 MG/DL (8.5-10.1); CREATININE FOR GFR 1.12 MG/DL (0.55-1.30); GLOMERULAR FILTRATION RATE 54.2 (>51); POTASSIUM SERUM 3.2 MEQ/L (3.5-5.1); TOTAL PROTEIN 5.1 GM/DL (6.4-8.2)
[2021-01-26] MEDS: HEPARIN SOD (PORCINE) 5000UNITS/ML 1ML VIAL/SYRINGE SQ SCH ×3 (05:46→21:11)
[2021-01-26] MEDS: **hydrALAZINE** 10 MG TAB PO SCH ×4 (09:00→21:11)
[2021-01-26] MEDS: LABETALOL 100MG/20ML VIAL IV PRN ×2 (10:27→17:00)
[2021-01-26] MEDS: LEVEMIR (INSULIN DETEMIR) 1 UNITS/0.01ML SC SCH (10:28)
[2021-01-26] MEDS: POLYVINYL ALCOHOL OPHTH SOLN 15 ML(LIQUITEARS) OU SCH ×3 (10:28→21:11)
[2021-01-26] MEDS: KCL 20MEQ IN 100ML SWI (KRUN) 20 MEQ in IV 1 EA IV SCH ×4 (11:21→12:40)
[2021-01-26] MEDS: D5W 1,000 ML IV SCH ×2 (12:40→23:59)
--- NOTE | 2021-01-26 13:54 | CCN ---
CRITICAL CARE NOTE DATE: 01/26/2021 SUBJECTIVE: Patient was seen and examined this morning during bedside rounds. Overnight, patient had no acute issues. She was hypertensive at times. Yesterday, there was an attempt for patient to progress with her diet. However, she had evidence of aspiration with liquids and so was placed NPO. Speech and swallow evaluation today is pending. Patient this morning denies any complaints. She does have some coughing although nonproductive. She has not had any fevers or chills overnight. She is still confused although awake and alert and it does take time for her to find words. She denies any chest pain, no abdominal pain, no nausea or vomiting. OBJECTIVE: Vitals: Temperature 98.2, pulse 92, respirations 22, blood pressure 184/82. O2 sat 100% on 1-2 liters nasal cannula. Ins 280, outs 950, net negative 670 mL General: Patient is awake and alert and oriented x 1-2. HEENT: Normocephalic, atraumatic. Moist mucous membranes noted. Mallampati class 2. Neck: Supple. Trachea is midline. No palpable cervical adenopathy. Cardiac: Regular rate and rhythm. Normal S-1, S-2. Faint systolic murmur. Pulmonary: Coarse rhonchi noted bilaterally more at the bases. No wheezing noted. No rales. Patient had occasional cough during exam with upper airway mucous sounds. Abdomen: Obese, soft, nontender, nondistended. No palpable organomegaly. Extremities: There is no significant lower extremity edema bilaterally. There are some areas of skin breakdown in the lower extremities. LABS: WBC 14.3, hemoglobin 10.5, platelets are 240. Chemistries: Sodium is 150. Potassium is 3.2. Chloride is 110. Bicarb is 33, BUN 29, creatinine 1.12. Glucose is 116. Calcium is 8.1. Albumin is 1.6. ASSESSMENT AND PLAN: Miss Knowles is a 55-year-old female with an unknown past medical history who was brought in by EMS after being found altered and covered in feces. Patient had questionable seizure activity in the ED and was intubated for airway protection. She has now been extubated and weaned down to nasal cannula oxygen supplementation. 1. Metabolic encephalopathy, likely multifactorial. The patient appeared to be hyperglycemic with a history of undiagnosed diabetes. She is also hypertensive and there was suspected dehydration as well as possible sepsis initially. Patient did have imaging including CT of the head and a brain MRI which was negative for acute CVA. Her mental status does appear improved. However, she is still confused and does find difficulty finding words. Would continue with more complete workup for encephalopathy and consider neurology consult if no improvement. We will continue monitor for seizure activity. She has not had any episodes of seizure currently since her initial presentation to the ED. 2. Community-acquired pneumonia and acute respiratory failure. Patient was initially intubated for airway protection and is now extubated on two nasal cannula supplementation. Her initial CT did show evidence suggestive of bronchoalveolar pneumonia. She is on ceftriaxone and azithromycin and would continue to treat for a total of five days. We will continue to wean down the nasal cannula supplementation as tolerated. Patient does have evidence of rhonchi on exam and a weak cough. Would give Acapella device and encourage mucus clearance. 3. MAURISIO, likely prerenal. Patient's renal function has been improving with IV fluids. She is hypernatremic and hyperchloremic and was started on D5 fluids yesterday. We will increase to D5W at 75 mL an hour given continued hypernatremia and as patient is NPO. We will monitor electrolytes and replete as needed. She is hypokalemic. Her magnesium was normal. 4. Hypertension. Patient was started on lisinopril orally. As she is NPO, we will put in an IV p.r.n. labetalol order and she will need to be on antihypertensive medications prior to discharge. 5. Diabetes, new diagnosed. Patient diagnosed with uncontrolled new diabetes. She is on Levemir but will continue with a fingerstick glucose q.6 hours until she is able to tolerate p.o. A speech and swallow evaluation is pending. DVT prophylaxis. Heparin subcu. GI prophylaxis. Not indicated. Code Status: FULL CODE. Total critical care time spent not including procedures approximately 45 minutes. Please do not hesitate to call if any further questions or concerns. Patient has been signed out to the hospitalist service. MARLIN
--- NOTE | 2021-01-26 14:11 | IPNPDOC ---
Date Seen The patient was seen on 01/26/21. Progress Note SUBJECTIVE: Disoriented and able to state her name or she is not date complains of cough which is nonproductive Without fever chills overnight gross hematuria in Gama catheter she denies any chest pain pressure tightness lightheadedness dizziness nausea vomiting. Normal MRI of the brain OBJECTIVE PHYSICAL EXAMINATION: VITAL SIGNS: Please see below. GENERAL: Disoriented to herself place time date mild expressive aphasia difficulty finding words HEENT: Face is symmetric tongue is midline moist mucous membranes no JVD thyromegaly cervical lymphadenopathy carotid stridor tracheal deviation CARDIOVASCULAR: S1-S2 sinus rhythm RESPIRATORY: Diminished with coarse rhonchi air entry is equal no kyphosis or scoliosis ABDOMINAL: Positive bowel sounds soft nontender nondistended obese abdomen Gama catheter with hematuria EXTREMITIES: Positive edema LABORATORY DATA, IMAGING STUDIES, MICROBIOLOGY: Please see below. ASSESSMENT AND PLAN: 55-year-old female admitted due to altered mental status new onset type 2 diabetes acute kidney injury found to have community-acquired pneumonia renal failure hypernatremia dehydration CT head MRI brain both negative Acute metabolic encephalopathy requiring intubation mechanical ventilation for airway protection -Not back to baseline. -Swallow evaluation to rule out aspiration -MRI of the brain is negative for CVA -Check EEG -No fever neck rigidity Brudzinski or Kernig sign to warrant a lumbar puncture to rule out meningitis Hypertensive urgency - recently recovered from acute kidney injury -Monitor on lisinopril -On and labetalol hydralazine beta-blockers Aspiration risk -Speech therapy recommends pured diet with thin liquids Expressive aphasia with negative MRI of the brain for CVA -Speech therapy ARU consult Community-acquired pneumonia -continue IV ceftriaxone -Continue azithromycin Acute kidney injury -Resolved Hypernatremia -Every 6 hourly basic metabolic panel continue with IV fluids avoid more than 10 to 12 mEq change in sodium level -MRI of the brain negative for acute findings New onset type 2 diabetes -Consistent carbohydrate diet -Insulin sliding scale with coverage fingersticks QA [facility] -Diabetic teaching Obesity BMI of 38.9 Disposition medically stable for PCU transfer continue telemetry VS, I&O, 24H, Fishbone Vital Signs/I&O Vital Signs Date Time Temp Pulse Resp B/P (MAP) Pulse Ox O2 Delivery O2 Flow Rate FiO2 01/26/21 13:43 167/84 01/26/21 13:00 97.1 87 18 97 Room Air 01/26/21 08:00 1.0 01/25/21 12:15 40 I&O- Last 24 Hours up to 6 AM 01/26/21 06:00 Intake Total 925 ml Output Total 1015 ml Balance -90 ml Laboratory Data 24H LABS Laboratory Tests 2 01/25/21 16:48: Bedside Glucose (Misc Panel) 100 01/26/21 00:16: Bedside Glucose (Misc Panel) 124H 01/26/21 04:41: Immature Granulocyte % (Auto) 0.3, Neutrophils (%) (Auto) 79.1H, Lymphocytes (%) (Auto) 11.1L, Monocytes (%) (Auto) 8.2H, Eosinophils (%) (Auto) 1.1, Basophils (%) (Auto) 0.2, Neutrophils # (Auto) 11.3H, Lymphocytes # (Auto) 1.6, Monocytes # (Auto) 1.2H, Eosinophils # (Auto) 0.2, Basophils # (Auto) 0.0, Nucleated Red Blood Cells % (auto) 0.0, Anion Gap 7L, Glomerular Filtration Rate 54.2, Calcium Level 8.1L, Magnesium Level 2.0, Total Bilirubin 0.5, Aspartate Amino Transf (AST/SGOT) 27, Alanine Aminotransferase (ALT/SGPT) 23, Alkaline Phosphatase 108, Total Protein 5.1L, Albumin 1.6L, Albumin/Globulin Ratio 0.5L 01/26/21 11:16: Bedside Glucose (Misc Panel) 156H CBC/BMP Laboratory Tests 01/26/21 04:41 Microbiology Microbiology 01/24/21 Blood Culture - Preliminary, Resulted No Growth after 48 hours. All Specime... 01/23/21 Blood Culture - Preliminary, Resulted No Growth after 48 hours. All Specime... ALEXANDRA ZEPEDA MD Jan 26, 2021 14:09
--- NOTE | 2021-01-26 15:44 | REP ---
INDICATION: HTN, RENAL FAILURE, R/O JORGE; HTN RENAL FAILURE R/O RENAL ARTERY STENOSIS. COMPARISON: None. TECHNIQUE: Real-time sonographic evaluation of the kidneys is performed. Duplex Doppler evaluation of renal arteries performed. FINDINGS: Renal cortical echogenicity pattern is normal bilaterally and contours are smooth. There is no evidence of hydronephrosis, cyst, mass, or calculus in either kidney. The right kidney measures 12.4 x 5.1 x 6.8 cm. Left renal dimensions are 12.8 x 4.7 x 5.4 cm. There is a Gama catheter in the urinary bladder which is collapsed. Duplex Doppler evaluation of renal arteries performed. Peak systolic velocity of the abdominal aorta is 101.5 centimeter/second of the level of the renal arteries. Peak systolic velocity of the main right renal artery is 81.4 cm per sec, renal to aortic ratio 0.80. Resistive indices right kidney range between 0.70 and 0.82. Acceleration times range between 0.025 and 0.033. Peak systolic velocity of the main left renal artery is 72.0 centimeters/second, renal to aortic ratio 0.71. Resistive indices left kidney 0.71-0.80. Acceleration times 0.025-0.042. IMPRESSION: No compelling duplex Doppler sonographic evidence of significant renal artery stenosis bilaterally. <Electronically signed by Ned Valderrama > 01/26/21 [id number]
[2021-01-26 17:07] LABS: CALCIUM LEVEL 8.2 MG/DL (8.5-10.1); CREATININE FOR GFR 1.11 MG/DL (0.55-1.30); GLOMERULAR FILTRATION RATE 54.7 (>51); POTASSIUM SERUM 3.9 MEQ/L (3.5-5.1)
[2021-01-27] VITALS: BP 166/74
[2021-01-27] MEDS: HumaLOG INSULIN (NovoLOG) PER UNIT SC SCH ×5 (00:02→21:00)
[2021-01-27] MEDS: AZITHROMYCIN INJ 500 MG, VIAL MATE ADAPTER 1 EACH in NS 250 ML IV SCH (01:00)
[2021-01-27 04:00] VITALS: BP 140/92
[2021-01-27] MEDS: HEPARIN SOD (PORCINE) 5000UNITS/ML 1ML VIAL/SYRINGE SQ SCH ×3 (04:57→21:37)
[2021-01-27 05:13] LABS: BASO # 0.1 10^3/uL (0.0-0.2); BASO % 0.4 % (0.0-1.0); EOS # 0.3 10^3/uL (0.0-0.5); HEMATOCRIT 34.8 % (36.0-47.0); HEMOGLOBIN 10.6 g/dl (12.0-15.5); LYMPH # 1.1 10^3/uL (1.5-5.0); LYMPH % 9.3 % (24.0-44.0); MEAN CORPUSCULAR HEMOGLOBIN 27.6 pg (27.0-33.0); MEAN CORPUSCULAR HGB CONC 30.5 g/dl (32.0-36.5); MEAN CORPUSCULAR VOLUME 90.6 fl (80.0-96.0); MONO # 0.9 10^3/uL (0.0-0.8); MONO % 7.6 % (2.0-8.0); NEUTROPHILS # 9.9 10^3/uL (1.5-8.5); NEUTROPHILS % 80.3 % (36.0-66.0); PLATELET COUNT, AUTOMATED 256 10^3/uL (150-450); RED BLOOD COUNT 3.84 10^6/uL (4.00-5.40); WHITE BLOOD COUNT 12.3 10^3/uL (4.0-10.0)
[2021-01-27 05:44] LABS: ALBUMIN 1.6 GM/DL (3.2-5.2); BILIRUBIN,TOTAL 0.4 MG/DL (0.2-1.0); CALCIUM LEVEL 7.9 MG/DL (8.5-10.1); CREATININE FOR GFR 1.16 MG/DL (0.55-1.30); POTASSIUM SERUM 3.5 MEQ/L (3.5-5.1); TOTAL PROTEIN 5.2 GM/DL (6.4-8.2)
[2021-01-27 07:24] VITALS: BP 138/78
[2021-01-27] MEDS: UNRESOLVED CLARIFICATION ENTRY XX SCH (07:29)
[2021-01-27] MEDS ORDERED: AZITHROMYCIN 250MG TABLET PO SCH (09:00)
[2021-01-27] MEDS: **hydrALAZINE** 10 MG TAB PO SCH (09:00)
[2021-01-27] MEDS: POLYVINYL ALCOHOL OPHTH SOLN 15 ML(LIQUITEARS) OU SCH ×3 (09:07→21:36)
[2021-01-27] MEDS: LEVEMIR (INSULIN DETEMIR) 1 UNITS/0.01ML SC SCH (09:07)
[2021-01-27 12:00] VITALS: BP 144/80
--- NOTE | 2021-01-27 13:09 | IPNPDOC ---
Subjective Date Seen The patient was seen on 01/27/21. Subjective Chief Complaint/HPI Feels better however still very weak. Reports she could not get out of bed yesterday. She also says that she still feels very slow and foggy and that feels her brain is not working properly. She could not tell me her home address. She could not tell me the name of the hospital or where it is located. She however was able to tell me that her mother has gone to a usp recently. She was also able to tell me that she lives in her mother's house locally and her mother may have sold the house so she is not sure if she has any place to go to after getting discharged from the hospital. She also tells me that her mother has another house in [place] in which her brother is living. Objective Physical Examination General Exam: Positive: Alert, Cooperative, No Acute Distress Eye Exam: Negative: Sclera icteric ENT Exam: Positive: Atraumatic Neck Exam: Positive: Supple; Negative: JVD Chest Exam: Positive: Clear to auscultation; Negative: Rales, Rhonchi, Wheezing Heart Exam: Positive: Rate Normal, Regular Rhythm, Normal S1, Normal S2; Negative: Gallops, Murmurs, Rubs Abdomen Exam: Positive: Normal bowel sounds, Soft; Negative: Tenderness Extremity Exam: Positive: Edema (Trace); Negative: Clubbing, Cyanosis Skin Exam: Positive: Breakdown (multiple skin breakdowns of the extremities); Negative: Rash Assessment /Plan Assessment 55-year-old female who has not seen a physician in many years and no documented past medical history was found down in her house by a friend. She was laying down on the floor covered with a blanket EMS was called EMS found her to be soiled with feces and with altered mental status. Patient had some questionable seizure-like activity with the EMS and in the ED and was intubated for airway protection. She was admitted for acute metabolic encephalopathy, community- acquired pneumonia and possible seizures. She was successfully extubated on 01/26/2021. While in the hospital she was found to have uncontrolled diabetes, Hypertension. She was also hypernatremic and dehydrated and had MAURISIO. Acute metabolic encephalopathy Etiology unclear Could have been to due to uncontrolled diabetes, seizure, dehydration MRI of brain negative for any acute stroke EEG has been ordered Acute respiratory failure Requiring intubation due to depressed mental status Now resolved Community-acquired pneumonia finish course of ceftriaxone and azithromycin Hypernatremia Resolved MAURISIO Due to dehydration likely from uncontrolled sugars and osmotic diuresis Resolved Newly diagnosed diabetes A1c is over 12 We will continue with Levemir and lispro Hypertension Continue lisinopril Obesity BMI of 39.4 History of mental health issues As per friend has received behavioral health services after mother went to usp. Plan/VTE VTE Prophylaxis Ordered?: Yes VS, I&O, 24H, Fishbone Vital Signs/I&O Vital Signs Date Time Temp Pulse Resp B/P (MAP) Pulse Ox O2 Delivery O2 Flow Rate FiO2 01/27/21 12:00 98.3 89 22 144/80 (101) 98 Room Air 01/26/21 08:00 1.0 01/25/21 12:15 40 I&O- Last 24 Hours up to 6 AM 01/27/21 06:00 Intake Total 1320 ml Output Total 705 ml Balance 615 ml Laboratory Data 24H LABS Laboratory Tests 2 01/26/21 14:31: Lab Scanned Report Miscellaneous Lab 01/26/21 16:24: Anion Gap 8, Glomerular Filtration Rate 54.7, Calcium Level 8.2L 01/27/21 00:02: Bedside Glucose (Misc Panel) 291H 01/27/21 04:32: Anion Gap 6L, Glomerular Filtration Rate 52.0, Calcium Level 7.9L, Immature Granulocyte % (Auto) 0.4, Neutrophils (%) (Auto) 80.3H, Lymphocytes (%) (Auto) 9.3L, Monocytes (%) (Auto) 7.6, Eosinophils (%) (Auto) 2.0, Basophils (%) (Auto) 0.4, Neutrophils # (Auto) 9.9H, Lymphocytes # (Auto) 1.1L, Monocytes # (Auto) 0.9H, Eosinophils # (Auto) 0.3, Basophils # (Auto) 0.1, Nucleated Red Blood Cells % (auto) 0.0, Total Bilirubin 0.4, Aspartate Amino Transf (AST/SGOT) 24, Alanine Aminotransferase (ALT/SGPT) 26, Alkaline Phosphatase 115, Total Protein 5.2L, Albumin 1.6L, Albumin/Globulin Ratio 0.4L 01/27/21 04:53: Bedside Glucose (Misc Panel) 262H CBC/BMP Laboratory Tests 01/26/21 16:24 01/27/21 04:32 Microbiology Microbiology 01/24/21 Blood Culture - Preliminary, Resulted No Growth after 72 hours. All specime... 01/23/21 Blood Culture - Preliminary, Resulted No Growth after 72 hours. All specime... Madelyn Donald MD Jan 27, 2021 13:09
[2021-01-27 14:00] VITALS: BP 134/78
[2021-01-27] MEDS ORDERED: SODIUM CHLORIDE 0.9% INJ 10 ML SYR IV PRN (14:25)
[2021-01-27] MEDS: SODIUM CHLORIDE 0.9% INJ 10 ML SYR IV SCH ×2 (16:33→21:37)
[2021-01-27 22:00] VITALS: BP 155/94
[2021-01-27] MEDS: cefTRIAXone SOD 2 GM in D5W MINI-BAG PLUS 50 ML IV SCH (23:58)
[2021-01-28] MEDS: HEPARIN SOD (PORCINE) 5000UNITS/ML 1ML VIAL/SYRINGE SQ SCH ×3 (06:08→20:43)
[2021-01-28] MEDS: SODIUM CHLORIDE 0.9% INJ 10 ML SYR IV SCH ×2 (06:09→14:00)
[2021-01-28 06:27] LABS: BASO # 0.1 10^3/uL (0.0-0.2); BASO % 0.9 % (0.0-1.0); EOS # 0.5 10^3/uL (0.0-0.5); EOS % 5.6 % (0.0-3.0); HEMATOCRIT 34.4 % (36.0-47.0); HEMOGLOBIN 10.4 g/dl (12.0-15.5); LYMPH # 2.2 10^3/uL (1.5-5.0); LYMPH % 27.2 % (24.0-44.0); MEAN CORPUSCULAR HEMOGLOBIN 27.3 pg (27.0-33.0); MEAN CORPUSCULAR HGB CONC 30.2 g/dl (32.0-36.5); MEAN CORPUSCULAR VOLUME 90.3 fl (80.0-96.0); MONO # 0.8 10^3/uL (0.0-0.8); MONO % 9.3 % (2.0-8.0); NEUTROPHILS # 4.6 10^3/uL (1.5-8.5); NEUTROPHILS % 56.6 % (36.0-66.0); PLATELET COUNT, AUTOMATED 246 10^3/uL (150-450); RED BLOOD COUNT 3.81 10^6/uL (4.00-5.40); WHITE BLOOD COUNT 8.2 10^3/uL (4.0-10.0)
[2021-01-28 06:49] LABS: ALBUMIN 1.6 GM/DL (3.2-5.2); BILIRUBIN,TOTAL 0.3 MG/DL (0.2-1.0); CREATININE FOR GFR 1.11 MG/DL (0.55-1.30); GLOMERULAR FILTRATION RATE 54.7 (>51); POTASSIUM SERUM 3.9 MEQ/L (3.5-5.1)
--- NOTE | 2021-01-28 08:20 | EEG ---
ELECTROENCEPHALOGRAM DATE: 01/27/2021 REFERRING PHYSICIAN: EKATERINA HAMEED MD DIAGNOSIS: Altered mental status. EEG#: [id number] HISTORY: The patient is a 55-year-old woman who was admitted at [facility] due to altered mental status. She is currently taking hydralazine, insulin, lisinopril, labetalol, etc. TECHNICAL DESCRIPTION: This digital electroencephalogram (EEG) was recorded by 21 scalp, ear, and two electrocardiogram (EKG) electrodes and was reviewed in bipolar and referential montages following reformatting in 10-20 international electrode placement system. INTERPRETATION: The patient was noted to be in awake and drowsy states during this EEG. Resting and awake background rhythm consisted of 10 Hz alpha activity measuring 15-40 microvolts in amplitude which was symmetric and reactive to eye opening. Attenuation of posterior dominant rhythm was seen during transition to drowsiness. No sleep was achieved. Hyperventilation was not performed. Photic stimulation remained unremarkable. EKG revealed normal sinus rhythm. No focal, lateralizing, or epileptiform abnormalities were seen. No relevant clinical activity was noted. CONCLUSION: This EEG in awake and drowsy states is within normal limits.
[2021-01-28] MEDS ORDERED: AZITHROMYCIN 250MG TABLET PO SCH (09:00)
[2021-01-28] MEDS: POLYVINYL ALCOHOL OPHTH SOLN 15 ML(LIQUITEARS) OU SCH ×3 (09:33→20:43)
[2021-01-28] MEDS: HumaLOG INSULIN (NovoLOG) PER UNIT SC SCH ×4 (09:33→20:13)
[2021-01-28] MEDS: LEVEMIR (INSULIN DETEMIR) 1 UNITS/0.01ML SC SCH (09:33)
--- NOTE | 2021-01-28 11:22 | IPNPDOC ---
Subjective Date Seen The patient was seen on 01/28/21. Subjective Chief Complaint/HPI No complaints this morning. Patient sitting up in chair having breakfast. No fever or chills. She feels that her brain is less foggy and she is able to concentrate more. Objective Physical Examination General Exam: Positive: Alert, Cooperative, No Acute Distress Eye Exam: Negative: Sclera icteric ENT Exam: Positive: Atraumatic Neck Exam: Positive: Supple; Negative: JVD Chest Exam: Positive: Clear to auscultation; Negative: Rales, Rhonchi, Wheezing Heart Exam: Positive: Rate Normal, Regular Rhythm, Normal S1, Normal S2; Negative: Gallops, Murmurs, Rubs Abdomen Exam: Positive: Normal bowel sounds, Soft; Negative: Tenderness Extremity Exam: Negative: Clubbing, Cyanosis, Edema Skin Exam: Positive: Other skin issue (Mild lymphedematous changes in both the lower extremities); Negative: Rash Psych Exam: Positive: Oriented x 3 Assessment /Plan Assessment 55-year-old female who has not seen a physician in many years and no documented past medical history was found down in her house by a friend. She was laying down on the floor covered with a blanket EMS was called EMS found her to be soiled with feces and with altered mental status. Patient had some questionable seizure-like activity with the EMS and in the ED and was intubated for airway protection. She was admitted for acute metabolic encephalopathy, community- acquired pneumonia and possible seizures. She was successfully extubated on 01/26/2021. While in the hospital she was found to have uncontrolled diabetes, Hypertension. She was also hypernatremic and dehydrated and had MAURISIO. Acute metabolic encephalopathy Etiology unclear Could have been to due to uncontrolled diabetes, seizure, dehydration MRI of brain negative for any acute stroke EEG normal Acute respiratory failure Requiring intubation due to depressed mental status Now resolved Community-acquired pneumonia finished course of ceftriaxone and azithromycin Hypernatremia Resolved MAURISIO Due to dehydration likely from uncontrolled sugars and osmotic diuresis Resolved Newly diagnosed diabetes A1c is over 12 We will continue with Levemir and lispro Hypertension Continue lisinopril Obesity BMI of 39.4 History of mental health issues As per friend has received behavioral health services after mother went to [facility]. Plan/VTE VTE Prophylaxis Ordered?: Yes VS, I&O, 24H, Fishbone Vital Signs/I&O Vital Signs Date Time Temp Pulse Resp B/P (MAP) Pulse Ox O2 Delivery O2 Flow Rate FiO2 01/28/21 09:32 138/78 01/27/21 22:00 97.8 79 18 99 Room Air 01/26/21 08:00 1.0 01/25/21 12:15 40 I&O- Last 24 Hours up to 6 AM 01/28/21 06:00 Intake Total 1395 ml Output Total 0 ml Balance 1395 ml Laboratory Data 24H LABS Laboratory Tests 2 01/27/21 13:15: Bedside Glucose (Misc Panel) 224H 01/27/21 16:46: Bedside Glucose (Misc Panel) 166H 01/27/21 21:24: Bedside Glucose (Misc Panel) 159H 01/28/21 06:11: Immature Granulocyte % (Auto) 0.4, Neutrophils (%) (Auto) 56.6, Lymphocytes (%) (Auto) 27.2, Monocytes (%) (Auto) 9.3H, Eosinophils (%) (Auto) 5.6H, Basophils (%) (Auto) 0.9, Neutrophils # (Auto) 4.6, Lymphocytes # (Auto) 2.2, Monocytes # (Auto) 0.8, Eosinophils # (Auto) 0.5, Basophils # (Auto) 0.1, Nucleated Red Blood Cells % (auto) 0.0, Anion Gap 6L, Glomerular Filtration Rate 54.7, Calcium Level 8.0L, Total Bilirubin 0.3, Aspartate Amino Transf (AST/SGOT) 23, Alanine Aminotransferase (ALT/SGPT) 25, Alkaline Phosphatase 101, Total Protein 5.0L, Albumin 1.6L, Albumin/Globulin Ratio 0.5L CBC/BMP Laboratory Tests 01/28/21 06:11 Microbiology Microbiology 01/24/21 Blood Culture - Preliminary, Resulted No Growth after 72 hours. All specime... 01/23/21 Blood Culture - Preliminary, Resulted No Growth after 72 hours. All specime... Madelyn Donald MD Jan 28, 2021 11:22
[2021-01-28 14:00] VITALS: BP 145/80
[2021-01-28 22:00] VITALS: BP 156/80
[2021-01-29] MEDS: HEPARIN SOD (PORCINE) 5000UNITS/ML 1ML VIAL/SYRINGE SQ SCH ×3 (05:19→20:30)
[2021-01-29 06:00] VITALS: BP 150/79
[2021-01-29 06:37] LABS: BASO # 0.1 10^3/uL (0.0-0.2); BASO % 0.8 % (0.0-1.0); EOS # 0.5 10^3/uL (0.0-0.5); HEMATOCRIT 33.6 % (36.0-47.0); HEMOGLOBIN 10.4 g/dl (12.0-15.5); LYMPH # 2.1 10^3/uL (1.5-5.0); MEAN CORPUSCULAR HEMOGLOBIN 27.8 pg (27.0-33.0); MEAN CORPUSCULAR VOLUME 89.8 fl (80.0-96.0); MONO # 0.8 10^3/uL (0.0-0.8); MONO % 9.5 % (2.0-8.0); NEUTROPHILS # 4.9 10^3/uL (1.5-8.5); NEUTROPHILS % 58.3 % (36.0-66.0); PLATELET COUNT, AUTOMATED 265 10^3/uL (150-450); RED BLOOD COUNT 3.74 10^6/uL (4.00-5.40); WHITE BLOOD COUNT 8.4 10^3/uL (4.0-10.0)
[2021-01-29 07:03] LABS: BLOOD UREA NITROGEN 22 MG/DL (7-18); CALCIUM LEVEL 8.2 MG/DL (8.5-10.1); CARBON DIOXIDE LEVEL 31 MEQ/L (21-32); CHLORIDE LEVEL 107 MEQ/L (98-107); CREATININE FOR GFR 0.92 MG/DL (0.55-1.30); GLOMERULAR FILTRATION RATE > 60.0 (>51); GLUCOSE, FASTING 112 MG/DL (70-100); POTASSIUM SERUM 3.7 MEQ/L (3.5-5.1); SODIUM LEVEL 147 MEQ/L (136-145)
[2021-01-29 08:00] VITALS: BP 142/94
[2021-01-29] MEDS: HumaLOG INSULIN (NovoLOG) PER UNIT SC SCH (08:37)
[2021-01-29] MEDS: LEVEMIR (INSULIN DETEMIR) 1 UNITS/0.01ML SC SCH (08:52)
[2021-01-29] MEDS: POLYVINYL ALCOHOL OPHTH SOLN 15 ML(LIQUITEARS) OU SCH ×3 (08:52→20:30)
[2021-01-30] MEDS: HEPARIN SOD (PORCINE) 5000UNITS/ML 1ML VIAL/SYRINGE SQ SCH ×3 (05:22→21:47)
[2021-01-30 06:24] LABS: BASO # 0.1 10^3/uL (0.0-0.2); BASO % 0.8 % (0.0-1.0); EOS # 0.4 10^3/uL (0.0-0.5); EOS % 4.7 % (0.0-3.0); HEMATOCRIT 34.6 % (36.0-47.0); HEMOGLOBIN 10.6 g/dl (12.0-15.5); LYMPH # 2.3 10^3/uL (1.5-5.0); LYMPH % 25.8 % (24.0-44.0); MEAN CORPUSCULAR HEMOGLOBIN 27.7 pg (27.0-33.0); MEAN CORPUSCULAR HGB CONC 30.6 g/dl (32.0-36.5); MEAN CORPUSCULAR VOLUME 90.3 fl (80.0-96.0); MONO # 0.9 10^3/uL (0.0-0.8); NEUTROPHILS # 5.2 10^3/uL (1.5-8.5); NEUTROPHILS % 57.9 % (36.0-66.0); PLATELET COUNT, AUTOMATED 288 10^3/uL (150-450); RED BLOOD COUNT 3.83 10^6/uL (4.00-5.40)
[2021-01-30 06:33] LABS: CALCIUM LEVEL 8.1 MG/DL (8.5-10.1); CREATININE FOR GFR 1.05 MG/DL (0.55-1.30); GLOMERULAR FILTRATION RATE 58.4 (>51); POTASSIUM SERUM 3.6 MEQ/L (3.5-5.1)
[2021-01-30] MEDS: LEVEMIR (INSULIN DETEMIR) 1 UNITS/0.01ML SC SCH (08:17)
[2021-01-30] MEDS: POLYVINYL ALCOHOL OPHTH SOLN 15 ML(LIQUITEARS) OU SCH ×3 (08:17→21:46)
[2021-01-30 14:00] VITALS: BP 152/90
[2021-01-31] MEDS: HEPARIN SOD (PORCINE) 5000UNITS/ML 1ML VIAL/SYRINGE SQ SCH ×3 (05:10→21:24)
[2021-01-31 06:07] VITALS: BP 148/86
[2021-01-31 06:15] LABS: BASO # 0.1 10^3/uL (0.0-0.2); BASO % 0.7 % (0.0-1.0); EOS # 0.4 10^3/uL (0.0-0.5); HEMATOCRIT 35.1 % (36.0-47.0); HEMOGLOBIN 10.8 g/dl (12.0-15.5); LYMPH # 2.4 10^3/uL (1.5-5.0); LYMPH % 25.7 % (24.0-44.0); MEAN CORPUSCULAR HEMOGLOBIN 27.3 pg (27.0-33.0); MEAN CORPUSCULAR HGB CONC 30.8 g/dl (32.0-36.5); MEAN CORPUSCULAR VOLUME 88.6 fl (80.0-96.0); MONO # 1.1 10^3/uL (0.0-0.8); MONO % 11.9 % (2.0-8.0); NEUTROPHILS # 5.3 10^3/uL (1.5-8.5); NEUTROPHILS % 56.7 % (36.0-66.0); PLATELET COUNT, AUTOMATED 279 10^3/uL (150-450); RED BLOOD COUNT 3.96 10^6/uL (4.00-5.40); WHITE BLOOD COUNT 9.4 10^3/uL (4.0-10.0)
[2021-01-31 06:41] LABS: CALCIUM LEVEL 8.3 MG/DL (8.5-10.1); CREATININE FOR GFR 1.05 MG/DL (0.55-1.30); GLOMERULAR FILTRATION RATE 58.4 (>51); POTASSIUM SERUM 3.6 MEQ/L (3.5-5.1)
[2021-01-31] MEDS: LEVEMIR (INSULIN DETEMIR) 1 UNITS/0.01ML SC SCH (08:37)
[2021-01-31] MEDS: POLYVINYL ALCOHOL OPHTH SOLN 15 ML(LIQUITEARS) OU SCH ×3 (08:37→21:25)
[2021-02-01 06:00] VITALS: BP 152/89
[2021-02-01] MEDS: HEPARIN SOD (PORCINE) 5000UNITS/ML 1ML VIAL/SYRINGE SQ SCH ×3 (06:32→22:26)
[2021-02-01] MEDS: POLYVINYL ALCOHOL OPHTH SOLN 15 ML(LIQUITEARS) OU SCH ×3 (08:50→22:27)
[2021-02-01] MEDS: LEVEMIR (INSULIN DETEMIR) 1 UNITS/0.01ML SC SCH (08:51)
[2021-02-01] MEDS ORDERED: HumaLOG INSULIN (NovoLOG) PER UNIT SC SCH (21:00)
[2021-02-02 06:00] VITALS: BP 155/92
[2021-02-02] MEDS: HEPARIN SOD (PORCINE) 5000UNITS/ML 1ML VIAL/SYRINGE SQ SCH ×3 (06:18→20:43)
[2021-02-02] MEDS ORDERED: HumaLOG INSULIN (NovoLOG) PER UNIT SC SCH (07:30)
[2021-02-02] MEDS: LEVEMIR (INSULIN DETEMIR) 1 UNITS/0.01ML SC SCH (08:35)
[2021-02-02] MEDS: GLIMEPIRIDE 2 MG TAB PO SCH ×2 (08:36→16:35)
[2021-02-02] MEDS: POLYVINYL ALCOHOL OPHTH SOLN 15 ML(LIQUITEARS) OU SCH ×3 (08:38→20:43)
[2021-02-03] MEDS: HEPARIN SOD (PORCINE) 5000UNITS/ML 1ML VIAL/SYRINGE SQ SCH ×3 (05:50→21:04)
[2021-02-03 06:00] VITALS: BP 164/77
[2021-02-03] MEDS: GLIMEPIRIDE 2 MG TAB PO SCH ×2 (07:30→17:11)
[2021-02-03] MEDS: POLYVINYL ALCOHOL OPHTH SOLN 15 ML(LIQUITEARS) OU SCH ×3 (11:38→21:05)
[2021-02-03] MEDS: LEVEMIR (INSULIN DETEMIR) 1 UNITS/0.01ML SC SCH (12:49)
[2021-02-04] MEDS: HEPARIN SOD (PORCINE) 5000UNITS/ML 1ML VIAL/SYRINGE SQ SCH ×2 (05:19→14:00)
[2021-02-04 06:00] VITALS: BP 151/88
[2021-02-04 08:12] VITALS: BP 151/86
[2021-02-04] MEDS: GLIMEPIRIDE 2 MG TAB PO SCH (08:12)
[2021-02-04] MEDS: LEVEMIR (INSULIN DETEMIR) 1 UNITS/0.01ML SC SCH (08:12)
[2021-02-04] MEDS: POLYVINYL ALCOHOL OPHTH SOLN 15 ML(LIQUITEARS) OU SCH (08:13)
[2021-02-04] MEDS ORDERED: LISI20TA33 PO (11:29)
[2021-02-04] MEDS ORDERED: INSUDET SC ×2 (11:29→12:06)
[2021-02-04] MEDS ORDERED: POLYOPD OU (11:29)
[2021-02-04] MEDS ORDERED: AMAR1TAB5 PO (11:29)
[2021-02-04] MEDS ORDERED: GLUC1TES2 XX (11:42)
[2021-02-04] MEDS ORDERED: LANC30MI XX (11:42)
[2021-02-04] MEDS ORDERED: ALCOPAD25 TOP (11:42)
[2021-02-04] MEDS ORDERED: INSU1MIS20 SC (11:42)
[2021-02-04] MEDS ORDERED: BLOOKIT21 XX (11:42)
[2021-02-04] MEDS ORDERED: PEN1MIS21 SC (11:42)
--- NOTE | 2021-03-11 16:18 | DS.PDOC ---
Discharge Summary General Date of Admission Jan 23, 2021 at 23:24 Date of Discharge 02/04/21 Discharge Summary PROCEDURES PERFORMED DURING STAY: [None]. DISCHARGE DIAGNOSES: #Acute metabolic encephalopathy #Acute respiratory failure - s/p intubation/extubation #Community-acquired pneumonia #Hypernatremia #MAURISIO #Newly diagnosed diabetes #HTN #Obesity #History of mental health issues COMPLICATIONS/CHIEF COMPLAINT: Altered Mental Status. HPI: From H&P. This is a 55-year-old female with unknown past medical history brought in here by EMS after being found down at home. Patient was reported by bystanders to be found down at home. EMS was called and when EMS arrived, patient was covered in feces. She had a episodes of "jerking movement" that which she received 1 dose of Ativan. She had another episodes of jerking movement in the emergency department that was broken with 1 dose of Ativan. She was unresponsive and GCS was less than 7 in the emergency department. Therefore she was emergently intubated for airway protection. REVIEW CBC with leukocytosis with WBC 15,000 and no evidence of bandemia. I- STAT BMP is unremarkable. Her blood sugar was in 400s and she received 1 dose of IV insulin and it was coming down. There is no evidence of anion gap. Lactate was 2. Liver function tests are almost within normal limit. Alcohol level and urine toxicology negative. Respiratory viral panel including COVID-[address] scan of the brain did not show any evidence of subacute ischemic stroke or intracranial hemorrhage. CT of the neck did not show any evidence of subluxation or fracture. CT of the abdomen to my independent review showed no evidence of acute intra-abdominal pathology. NG tube output after intubation show coffee-ground color. ICU was consulted for further work-up and management. ER attending and ER administration contacted and spoke with her brother Lane Knowles. Essentially he knows nothing about her history. There was no other collateral information available in the system or contact. Hospital Course: 55-year-old female who has not seen a physician in many years and no documented past medical history was found down in her house by a friend. She was laying down on the floor covered with a blanket EMS was called EMS found her to be soiled with feces and with altered mental status. Patient had some questionable seizure-like activity with the EMS and in the ED and was intubated for airway protection. She was admitted for acute metabolic encephalopathy, community- acquired pneumonia and possible seizures. She was successfully extubated on 01/26/2021. While in the hospital she was found to have uncontrolled diabetes, Hypertension. She was also hypernatremic and dehydrated and had MAURISIO. #Acute metabolic encephalopathy Etiology unclear Could have been to due to uncontrolled diabetes, seizure, dehydration MRI of brain negative for any acute stroke EEG normal #Acute respiratory failure Requiring intubation due to depressed mental status Now resolved #Community-acquired pneumonia finished course of ceftriaxone and azithromycin #Hypernatremia Resolved #MAURISIO Due to dehydration likely from uncontrolled sugars and osmotic diuresis Resolved #Newly diagnosed diabetes #Hypertension Continue lisinopril #Obesity BMI of 39.4 - complicates care #History of mental health issues As per friend has received behavioral health services after mother went to prison. DISCHARGE MEDICATIONS: Please see below. ALLERGIES: Please see below. PHYSICAL EXAMINATION ON DISCHARGE: VITAL SIGNS: See below GENERAL APPEARANCE: NAD, disheveled HEENT: NC/AT CARDIOVASCULAR: +S1S2, RRR LUNGS: CTA B/L ABDOMEN: soft, NT EXTREMITIES: no edema NEUROLOGICAL: no gross focal defiicts PSYCHIATRIC: alert, awake LABORATORY DATA: Please see below. ACTIVITY: [As tolerated]. DISPOSITION: Home Health Service. DISCHARGE INSTRUCTIONS: 1. Follow up with PCP in 3-5 days. TIME SPENT ON DISCHARGE: 35 minutes. Discharge Medications Scheduled Blood Sugar Diagnostic (Advanced Glucose Test Strips) 1 Each Strip, 1 STRIP XX ASDIRECTED Glimepiride (Amaryl) 2 Mg Tablet, 2 MG PO BID@0730,1730 Insulin Detemir (Levemir) 100 Unit/1 Ml Vial, 10 UNITS SC DAILY Lisinopril (Lisinopril) 20 Mg Tablet, 20 MG PO DAILY Polyvinyl Alcohol (Artificial Tears) 15 Ml Drops, 2 DROP OU TID Allergies Coded Allergies: No Known Allergies (Unverified , 01/27/21) MAKAYLA HENDERSON MD Mar 11, 2021 16:18
== END 2021-02-04 15:42 | disposition home health service (06) | DRG 52 ==
LOC: EDBD 18:26 → M ED 18:26 → M ED INP 23:24 → M ICU 01-24 01:00 → M PCU 01-26 18:00 → M MSPAV 01-27 11:14
PROVIDERS: ADMIT Internal Medicine Critical Care Medicine; ATTEND Internal Medicine
PROC: 5A1945Z Respiratory Ventilation, 24-96 Consecutive Hours (ICD-10-PCS; 2021-01-23)
PROC: 05HM03Z Insertion of Infusion Device into Right Internal Jugular Vein, Open Approach (ICD-10-PCS; principal; 2021-01-24)
DX: G93.41 Metabolic encephalopathy (principal); J96.00 Acute respiratory failure, unspecified whether with hypoxia or hypercapnia; J18.9 Pneumonia, unspecified organism; N17.9 Acute kidney failure, unspecified; R56.9 Unspecified convulsions; E46 Unspecified protein-calorie malnutrition; E87.2 Acidosis; E87.0 Hyperosmolality and hypernatremia; E11.65 Type 2 diabetes mellitus with hyperglycemia; E87.6 Hypokalemia; I12.9 Hypertensive chronic kidney disease with stage 1 through stage 4 chronic kidney disease, or unspecified chronic kidney disease; E66.9 Obesity, unspecified; Z68.39 Body mass index [BMI] 39.0-39.9, adult; Z79.899 Other long term (current) drug therapy; N18.9 Chronic kidney disease, unspecified

== ENCOUNTER 2021-08-08 11:39 | Inpatient (IN) | payer MEDICAID, OTHER, SELFPAY ==
[~2021-08-08] VITALS: Ht 149.9 cm; Wt 120.8 kg
[~2021-08-08 11:39] MED LIST: ALCOPAD25 TOP; AMAR1TAB5 PO; BLOOKIT21 XX; GLUC1TES2 XX; INSU1MIS20 SC; INSUDET SC; LANC30MI XX; LISI20TA33 PO; PEN1MIS21 SC; POLYOPD OU
[2021-08-08 15:33] VITALS: BP 194/103
[2021-08-08] MEDS ORDERED: DEXTROSE 50% 50 ML SYRINGE IV PRN (15:45)
[2021-08-08] MEDS ORDERED: ACETAMINOPHEN TAB 650MG DOSE (2X325MG) PO PRN (15:45)
[2021-08-08] MEDS ORDERED: GLUCAGON INJ 1MG VIAL SC PRN (15:45)
[2021-08-08] MEDS ORDERED: GLUCOSE 4GM CHEW TABLET PO PRN (15:45)
[2021-08-08 16:19] VITALS: BP 187/100
[2021-08-08 16:20] LABS: HEMOGLOBIN 13.1 g/dl (12.0-15.5); MEAN CORPUSCULAR HEMOGLOBIN 28.4 pg (27.0-33.0); MEAN CORPUSCULAR VOLUME 88.9 fl (80.0-96.0); PLATELET COUNT, AUTOMATED 287 10^3/uL (150-450); RED BLOOD COUNT 4.61 10^6/uL (4.00-5.40); WHITE BLOOD COUNT 8.6 10^3/uL (4.0-10.0)
[2021-08-08 16:31] LABS: PROTHROMBIN TIME 13.6 SECONDS (12.7-14.5)
[2021-08-08] MEDS ORDERED: LEVE1INJ5 SC (16:40)
[2021-08-08] MEDS ORDERED: HOME MED LIST COMPLETE! XX SCH (16:45)
[2021-08-08 16:49] LABS: ALBUMIN 1.9 GM/DL (3.2-5.2); BILIRUBIN,TOTAL 0.6 MG/DL (0.2-1.0); CALCIUM LEVEL 8.5 MG/DL (8.5-10.1); CREATININE FOR GFR 1.28 MG/DL (0.55-1.30); GLOMERULAR FILTRATION RATE 46.3 (>51); POTASSIUM SERUM 4.2 MEQ/L (3.5-5.1); TOTAL PROTEIN 5.8 GM/DL (6.4-8.2)
[2021-08-08 18:11] LABS: C REACTIVE PROTEIN QUANTITATIV 1.4 MG/DL (0.00-0.30)
[2021-08-08] MEDS: FUROSEMIDE 40MG/4ML VIAL (J1940) IV SCH (18:33)
[2021-08-08] MEDS: HumaLOG INSULIN (NovoLOG) PER UNIT SC SCH ×2 (18:33→20:19)
[2021-08-08] MEDS: **hydrALAZINE HCL** 25 MG TAB PO SCH (18:34)
[2021-08-08 18:38] LABS: APPEARANCE, URINE HAZY (CLEAR); BACTERIA, URINE AUTO NEGATIVE (NEGATIVE); BILIRUBIN, URINE AUTO NEGATIVE (NEGATIVE); BLOOD, URINE BLOOD NEGATIVE (NEGATIVE); COLOR, URINE YELLOW (YELLOW); GLUCOSE, URINE (UA) AUTO 1+ mg/dL (NEGATIVE); KETONE, URINE AUTO 1+ mg/dL (NEGATIVE); LEUKOCYTE ESTERASE, URINE AUTO NEGATIVE (NEGATIVE); NITRITE, URINE AUTO NEGATIVE (NEGATIVE); PROTEIN, URINE AUTO 3+ mg/dL (NEGATIVE); RBC, URINE AUTO 2 /HPF (0-3); SPECIFIC GRAVITY URINE AUTO 1.023 (1.002-1.035); SQUAMOUS EPITHELIAL CELL UR AU 2 /HPF (0-6); UROBILINOGEN, URINE AUTO 0.2 mg/dL (0.0-2.0); WBC, URINE AUTO 3 /HPF (0-3)
[2021-08-08 20:00] VITALS: BP 144/73
[2021-08-08] MEDS: CEFTAROLINE FOSAMIL 600 MG in D5W MINI-BAG PLUS 50 ML IV SCH (20:00)
[2021-08-08] MEDS: ENOXAPARIN 40MG/0.4ML SYRINGE (J1650 PER 10MG) SC SCH (20:19)
[2021-08-08] MEDS: NYSTATIN 100,000 UNITS/GM TOPICAL PWD 15 GM TOP SCH (20:20)
[2021-08-09 00:10] VITALS: BP 145/70
[2021-08-09] MEDS: **hydrALAZINE HCL** 25 MG TAB PO SCH ×2 (00:31→05:03)
[2021-08-09] MEDS: FUROSEMIDE 40MG/4ML VIAL (J1940) IV SCH ×2 (00:31→05:04)
[2021-08-09 04:10] VITALS: BP 170/81
[2021-08-09 05:32] LABS: BASO # 0.1 10^3/uL (0.0-0.2); BASO % 0.8 % (0.0-1.0); EOS # 0.2 10^3/uL (0.0-0.5); EOS % 1.6 % (0.0-3.0); HEMATOCRIT 37.4 % (36.0-47.0); HEMOGLOBIN 11.8 g/dl (12.0-15.5); LYMPH # 0.9 10^3/uL (1.5-5.0); LYMPH % 9.5 % (24.0-44.0); MEAN CORPUSCULAR HEMOGLOBIN 27.7 pg (27.0-33.0); MEAN CORPUSCULAR HGB CONC 31.6 g/dl (32.0-36.5); MEAN CORPUSCULAR VOLUME 87.8 fl (80.0-96.0); MONO # 0.8 10^3/uL (0.0-0.8); MONO % 8.5 % (2.0-8.0); NEUTROPHILS # 7.6 10^3/uL (1.5-8.5); NEUTROPHILS % 79.2 % (36.0-66.0); PLATELET COUNT, AUTOMATED 252 10^3/uL (150-450); RED BLOOD COUNT 4.26 10^6/uL (4.00-5.40); WHITE BLOOD COUNT 9.6 10^3/uL (4.0-10.0)
[2021-08-09 05:50] LABS: HEMOGLOBIN A1c 7.1 %
[2021-08-09 05:54] LABS: CALCIUM LEVEL 8.3 MG/DL (8.5-10.1); CREATININE FOR GFR 1.47 MG/DL (0.55-1.30); GLOMERULAR FILTRATION RATE 39.4 (>51); POTASSIUM SERUM 4.1 MEQ/L (3.5-5.1)
[2021-08-09 07:23] VITALS: BP 176/79
[2021-08-09 07:25] LABS: CHOLESTEROL RISK RATIO 2.4 (<5)
[2021-08-09] MEDS ORDERED: amLODIPine 5 MG TAB PO SCH (09:00)
[2021-08-09] MEDS: HumaLOG INSULIN (NovoLOG) PER UNIT SC SCH ×4 (10:28→20:22)
[2021-08-09] MEDS: CEFTAROLINE FOSAMIL 600 MG in D5W MINI-BAG PLUS 50 ML IV SCH ×2 (10:28→20:22)
[2021-08-09] MEDS: NYSTATIN 100,000 UNITS/GM TOPICAL PWD 15 GM TOP SCH ×2 (10:29→20:23)
[2021-08-09] MEDS: FUROSEMIDE 100MG/10ML VIAL (J1940) IV SCH ×3 (10:29→20:23)
[2021-08-09 11:11] LABS: CREATININE,RANDOM URINE 21.1 MG/DL; TOTAL PROTEIN,RANDOM URINE 226.6 MG/DL (0.0-12.0)
[2021-08-09 12:00] VITALS: BP 139/72
[2021-08-09] MEDS: **hydrALAZINE** 50 MG TAB PO SCH ×2 (12:56→16:41)
[2021-08-09 15:45] VITALS: BP 138/73
[2021-08-09 20:00] VITALS: BP 137/65
[2021-08-09] MEDS: ENOXAPARIN 40MG/0.4ML SYRINGE (J1650 PER 10MG) SC SCH (20:23)
[2021-08-10] VITALS (10 sets, daily range): BP systolic 137–199; BP diastolic 70–96
[2021-08-10] MEDS: **hydrALAZINE** 50 MG TAB PO SCH ×4 (05:56→17:46)
[2021-08-10 06:11] LABS: BASO # 0.1 10^3/uL (0.0-0.2); BASO % 1.2 % (0.0-1.0); EOS # 0.3 10^3/uL (0.0-0.5); EOS % 4.3 % (0.0-3.0); HEMATOCRIT 38.4 % (36.0-47.0); HEMOGLOBIN 12.1 g/dl (12.0-15.5); LYMPH % 15.9 % (24.0-44.0); MEAN CORPUSCULAR HEMOGLOBIN 28.1 pg (27.0-33.0); MEAN CORPUSCULAR HGB CONC 31.5 g/dl (32.0-36.5); MEAN CORPUSCULAR VOLUME 89.1 fl (80.0-96.0); MONO # 0.7 10^3/uL (0.0-0.8); MONO % 10.6 % (2.0-8.0); NEUTROPHILS # 4.4 10^3/uL (1.5-8.5); NEUTROPHILS % 67.4 % (36.0-66.0); PLATELET COUNT, AUTOMATED 269 10^3/uL (150-450); RED BLOOD COUNT 4.31 10^6/uL (4.00-5.40); WHITE BLOOD COUNT 6.5 10^3/uL (4.0-10.0)
[2021-08-10 06:30] LABS: CALCIUM LEVEL 8.1 MG/DL (8.5-10.1); CREATININE FOR GFR 1.79 MG/DL (0.55-1.30); GLOMERULAR FILTRATION RATE 31.4 (>51); PERCENT SATURATION 13.7 % (13.2-45.0); POTASSIUM SERUM 3.9 MEQ/L (3.5-5.1)
[2021-08-10] MEDS ORDERED: CEFTAROLINE FOSAMIL 300 MG in D5W 50 ML IV SCH (08:00)
[2021-08-10] MEDS: FUROSEMIDE 100MG/10ML VIAL (J1940) IV SCH ×3 (08:28→20:17)
[2021-08-10] MEDS: CEFTAROLINE FOSAMIL 400 MG in D5W MINI-BAG PLUS 50 ML IV SCH ×2 (08:29→20:17)
[2021-08-10] MEDS: NYSTATIN 100,000 UNITS/GM TOPICAL PWD 15 GM TOP SCH ×2 (08:29→20:18)
[2021-08-10] MEDS: HumaLOG INSULIN (NovoLOG) PER UNIT SC SCH ×4 (08:29→20:16)
[2021-08-10] MEDS ORDERED: POTASSIUM CHLORIDE 10MEQ SR TABLET PO ONE (09:30)
[2021-08-10] MEDS ORDERED: metOLazone 5 MG TAB PO ONE (09:30)
[2021-08-10 10:24] LABS: PTH INTACT 74.7 PG/ML (18.5-88.0)
[2021-08-10 10:38] LABS: TOTAL 25(OH) VITAMIN D 12.6 NG/ML (30.0-100.0)
[2021-08-10] MEDS ORDERED: FERRIC CARBOXYMALTOSE INJ 750 MG, VIAL MATE ADAPTER 1 EACH in NS 250 ML IV ONE (12:00)
[2021-08-10] MEDS ORDERED: cloNIDine 0.1MG TABLET PO ONE (15:30)
[2021-08-10] MEDS: ENOXAPARIN 40MG/0.4ML SYRINGE (J1650 PER 10MG) SC SCH (20:17)
[2021-08-11] VITALS: BP 130/60
[2021-08-11 04:00] VITALS: BP 146/76
[2021-08-11 05:35] LABS: BASO # 0.1 10^3/uL (0.0-0.2); EOS # 0.2 10^3/uL (0.0-0.5); EOS % 3.7 % (0.0-3.0); HEMATOCRIT 38.9 % (36.0-47.0); HEMOGLOBIN 12.2 g/dl (12.0-15.5); LYMPH % 15.1 % (24.0-44.0); MEAN CORPUSCULAR HGB CONC 31.4 g/dl (32.0-36.5); MEAN CORPUSCULAR VOLUME 89.4 fl (80.0-96.0); MONO # 0.7 10^3/uL (0.0-0.8); MONO % 10.3 % (2.0-8.0); NEUTROPHILS # 4.4 10^3/uL (1.5-8.5); NEUTROPHILS % 69.4 % (36.0-66.0); PLATELET COUNT, AUTOMATED 242 10^3/uL (150-450); RED BLOOD COUNT 4.35 10^6/uL (4.00-5.40); WHITE BLOOD COUNT 6.3 10^3/uL (4.0-10.0)
[2021-08-11] MEDS: **hydrALAZINE** 50 MG TAB PO SCH ×4 (05:35→18:52)
[2021-08-11 05:55] LABS: CALCIUM LEVEL 8.3 MG/DL (8.5-10.1); CREATININE FOR GFR 1.82 MG/DL (0.55-1.30); GLOMERULAR FILTRATION RATE 30.8 (>51); POTASSIUM SERUM 3.9 MEQ/L (3.5-5.1)
[2021-08-11 08:08] VITALS: BP 162/79
[2021-08-11] MEDS: CEFTAROLINE FOSAMIL 400 MG in D5W MINI-BAG PLUS 50 ML IV SCH (09:03)
[2021-08-11] MEDS: FUROSEMIDE 100MG/10ML VIAL (J1940) IV SCH ×3 (09:04→20:55)
[2021-08-11] MEDS: HumaLOG INSULIN (NovoLOG) PER UNIT SC SCH ×4 (09:04→20:55)
[2021-08-11] MEDS: NYSTATIN 100,000 UNITS/GM TOPICAL PWD 15 GM TOP SCH ×2 (09:05→20:56)
[2021-08-11] MEDS: CALCITRIOL 0.25 MCG CAP (S0169) PO SCH (10:36)
[2021-08-11] MEDS: SPIRONOLACTONE 50 MG TAB PO SCH ×2 (10:36→16:03)
[2021-08-11] MEDS: POTASSIUM CHLORIDE 10MEQ SR TABLET PO SCH ×2 (10:36→20:55)
[2021-08-11] MEDS: VITAMIN D 1,000 INTERNATIONAL UNITS TABLET PO SCH (10:36)
[2021-08-11 13:18] VITALS: BP 159/76
[2021-08-11] MEDS ORDERED: ONDANSETRON 4MG/2ML VIAL IV ONE (15:25)
[2021-08-11 15:33] VITALS: BP 148/70
[2021-08-11 20:00] VITALS: BP 139/71
[2021-08-11] MEDS: ENOXAPARIN 40MG/0.4ML SYRINGE (J1650 PER 10MG) SC SCH (20:55)
[2021-08-11] MEDS ORDERED: DOXYCYCLINE HYCLATE 100MG TABLET PO SCH (21:00)
[2021-08-12] VITALS (89 sets, daily range): BP systolic 56–301; BP diastolic 31–155
[2021-08-12] MEDS ORDERED: NS 1,000 ML IV ONE ×2 (01:25→03:15)
[2021-08-12 03:12] LABS: BASO # 0.1 10^3/uL (0.0-0.2); BASO % 1.1 % (0.0-1.0); EOS # 0.2 10^3/uL (0.0-0.5); EOS % 2.2 % (0.0-3.0); HEMATOCRIT 40.5 % (36.0-47.0); HEMOGLOBIN 12.8 g/dl (12.0-15.5); LYMPH # 1.4 10^3/uL (1.5-5.0); LYMPH % 19.1 % (24.0-44.0); MEAN CORPUSCULAR HEMOGLOBIN 28.7 pg (27.0-33.0); MEAN CORPUSCULAR HGB CONC 31.6 g/dl (32.0-36.5); MEAN CORPUSCULAR VOLUME 90.8 fl (80.0-96.0); MONO # 0.6 10^3/uL (0.0-0.8); MONO % 8.1 % (2.0-8.0); NEUTROPHILS # 4.9 10^3/uL (1.5-8.5); NEUTROPHILS % 68.2 % (36.0-66.0); PLATELET COUNT, AUTOMATED 245 10^3/uL (150-450); RED BLOOD COUNT 4.46 10^6/uL (4.00-5.40); WHITE BLOOD COUNT 7.2 10^3/uL (4.0-10.0)
[2021-08-12] MEDS ORDERED: NOREPINEPHRINE BITARTRATE 8 MG in D5W 492 ML IV SCH ×2 (03:15→10:13)
[2021-08-12] MEDS: NOREPINEPHRINE BITARTRATE 8 MG in D5W 492 ML IV SCH ×7 (03:25→19:34)
[2021-08-12 03:29] LABS: CALCIUM LEVEL 8.5 MG/DL (8.5-10.1); CREATININE FOR GFR 2.14 MG/DL (0.55-1.30); GLOMERULAR FILTRATION RATE 25.6 (>51); POTASSIUM SERUM 4.4 MEQ/L (3.5-5.1)
[2021-08-12 03:52] LABS: ABG BASE EXCESS -8.7 (-2.0-2.0); ABG HCO3 17.3 MEQ/L (22.0-26.0); ABG O2 SATURATION 99.1 % (95.0-99.0); ABG PARTIAL PRESSURE O2 176.4 mmHg (75.0-100.0); ABG STANDARD HCO3 17.6 MEQ/L (22.0-26.0); ABG TOTAL CO2 18.5 MEQ/L (22.0-29.0); ABG pH (ARTERIAL) 7.277 UNITS (7.350-7.450)
[2021-08-12] MEDS: **hydrALAZINE** 50 MG TAB PO SCH ×2 (03:53)
[2021-08-12] MEDS: ONDANSETRON 4MG/2ML VIAL IV PRN ×2 (05:17→09:21)
[2021-08-12] MEDS ORDERED: EPINEPHrine 1MG/10ML SYRINGE 1.5IN ONE (05:17)
[2021-08-12] MEDS ORDERED: EPINEPHrine INJ 1 MG/ML 1ML AMP As Ordered ONE ×3 (05:25→10:54)
[2021-08-12 05:37] LABS: CK-MB VALUE MASS 9.4 NG/ML (<3.6); MB/CK RELATIVE INDEX 10.11 (< OR =4)
[2021-08-12] MEDS ORDERED: EPINEPHrine 1MG/10ML SYRINGE 1.5IN IV STA ×3 (05:38→10:52)
[2021-08-12] MEDS ORDERED: HEPARIN SOD (PORCINE) 5000UNITS/ML 1ML VIAL/SYRINGE IV PRN (05:45)
[2021-08-12] MEDS ORDERED: CLOPIDOGREL 75 MG TAB PO STA (06:20)
[2021-08-12 06:24] LABS: CK-MB VALUE MASS 12.1 NG/ML (<3.6); MB/CK RELATIVE INDEX 8.58 (< OR =4)
[2021-08-12] MEDS ORDERED: DOBUTamine HCL 500,000 MCG in IV 1 EA IV SCH (06:40)
[2021-08-12] MEDS ORDERED: ASPIRIN 81 MG CHEW TABLET PO ONE (07:00)
[2021-08-12] MEDS ORDERED: ATORVASTATIN 20 MG TAB PO ONE (07:00)
[2021-08-12] MEDS: HumaLOG INSULIN (NovoLOG) PER UNIT SC SCH ×4 (07:30→21:09)
[2021-08-12] MEDS: MILRINONE/DEXTROSE 20 MG in IV 1 EA IV SCH ×2 (08:03→16:06)
[2021-08-12] MEDS: HEPARIN DRIP 25,000 UNITS in IV 1 EA IV SCH (08:03)
[2021-08-12] MEDS: NYSTATIN 100,000 UNITS/GM TOPICAL PWD 15 GM TOP SCH ×2 (09:00→21:00)
[2021-08-12] MEDS: POTASSIUM CHLORIDE 10MEQ SR TABLET PO SCH ×2 (09:21→21:03)
[2021-08-12] MEDS: VITAMIN D 1,000 INTERNATIONAL UNITS TABLET PO SCH (09:21)
[2021-08-12] MEDS: CALCITRIOL 0.25 MCG CAP (S0169) PO SCH (09:21)
[2021-08-12] MEDS ORDERED: EPINEPHrine HCL INJ 1 MG in D5W 240 ML IV SCH (11:00)
[2021-08-12 12:59] LABS: MIXED BASE EXCESS -8.8; MIXED HCO3 17.1 MEQ/L; MIXED O2 SATURATION 94.8 %; MIXED PARTIAL PRESSURE CO2 36.7 mmHg; MIXED PARTIAL PRESSURE O2 81.1 mmHg; MIXED PH 7.285 UNITS; MIXED STANDARD HCO3 17.5 MEQ/L; MIXED TOTAL CO2 18.2 MEQ/L
[2021-08-12 13:09] LABS: ABG BASE EXCESS -8.8 (-2.0-2.0); ABG HCO3 16.4 MEQ/L (22.0-26.0); ABG O2 SATURATION 95.6 % (95.0-99.0); ABG PARTIAL PRESSURE CO2 33.5 mmHg (35.0-45.0); ABG PARTIAL PRESSURE O2 86.6 mmHg (75.0-100.0); ABG STANDARD HCO3 17.4 MEQ/L (22.0-26.0); ABG TOTAL CO2 17.4 MEQ/L (22.0-29.0); ABG pH (ARTERIAL) 7.307 UNITS (7.350-7.450)
[2021-08-12 13:45] LABS: CALCIUM LEVEL 8.8 MG/DL (8.5-10.1); CREATININE FOR GFR 2.18 MG/DL (0.55-1.30); POTASSIUM SERUM 4.1 MEQ/L (3.5-5.1)
[2021-08-12 13:53] LABS: ABG BASE EXCESS -8.6 (-2.0-2.0); ABG O2 SATURATION 95.6 % (95.0-99.0); ABG PARTIAL PRESSURE CO2 36.1 mmHg (35.0-45.0); ABG PARTIAL PRESSURE O2 85.8 mmHg (75.0-100.0); ABG STANDARD HCO3 17.6 MEQ/L (22.0-26.0); ABG TOTAL CO2 18.2 MEQ/L (22.0-29.0); ABG pH (ARTERIAL) 7.292 UNITS (7.350-7.450)
[2021-08-12 13:58] LABS: MIXED BASE EXCESS -14.2; MIXED HCO3 11.4 MEQ/L; MIXED O2 SATURATION 95.7 %; MIXED PARTIAL PRESSURE O2 93.4 mmHg; MIXED PH 7.258 UNITS; MIXED STANDARD HCO3 13.4 MEQ/L; MIXED TOTAL CO2 12.2 MEQ/L
[2021-08-12] MEDS: EPINEPHrine HCL INJ 2 MG in D5W 480 ML IV SCH ×3 (14:19→20:27)
[2021-08-12 15:21] LABS: CENTRAL VEN BASE EXCESS -10.8
[2021-08-12] MEDS ORDERED: SODIUM CHLORIDE 0.9% 1000ML IV STA (16:01)
[2021-08-12 18:36] LABS: CK-MB VALUE MASS 22.7 NG/ML (<3.6); MB/CK RELATIVE INDEX 12.68 (< OR =4)
[2021-08-12 18:49] LABS: CALCIUM LEVEL 8.4 MG/DL (8.5-10.1); CREATININE FOR GFR 2.43 MG/DL (0.55-1.30); GLOMERULAR FILTRATION RATE 22.1 (>51); POTASSIUM SERUM 3.7 MEQ/L (3.5-5.1)
[2021-08-12] MEDS: NOREPINEPHRINE BITARTRATE 16 MG in D5W 484 ML IV SCH (21:03)
[2021-08-13] VITALS (59 sets, daily range): BP systolic 152–239; BP diastolic 64–95
[2021-08-13] MEDS: ONDANSETRON 4MG/2ML VIAL IV PRN (00:42)
[2021-08-13] MEDS: EPINEPHrine HCL INJ 2 MG in D5W 480 ML IV SCH ×4 (02:48→22:48)
[2021-08-13 04:40] LABS: BASO # 0.1 10^3/uL (0.0-0.2); BASO % 0.3 % (0.0-1.0); HEMATOCRIT 39.6 % (36.0-47.0); HEMOGLOBIN 12.8 g/dl (12.0-15.5); LYMPH # 1.5 10^3/uL (1.5-5.0); LYMPH % 7.6 % (24.0-44.0); MEAN CORPUSCULAR HEMOGLOBIN 28.5 pg (27.0-33.0); MEAN CORPUSCULAR HGB CONC 32.3 g/dl (32.0-36.5); MEAN CORPUSCULAR VOLUME 88.2 fl (80.0-96.0); MONO % 11.5 % (2.0-8.0); NEUTROPHILS # 16.1 10^3/uL (1.5-8.5); NEUTROPHILS % 79.9 % (36.0-66.0); PLATELET COUNT, AUTOMATED 253 10^3/uL (150-450); RED BLOOD COUNT 4.49 10^6/uL (4.00-5.40); WHITE BLOOD COUNT 20.2 10^3/uL (4.0-10.0)
[2021-08-13 04:49] LABS: INR 1.46; PROTHROMBIN TIME 18.2 SECONDS (12.7-14.5)
[2021-08-13 04:51] LABS: PARTIAL THROMBOPLASTIN TIME 80.6 SECONDS (25.9-37.0)
[2021-08-13 05:05] LABS: CALCIUM LEVEL 8.1 MG/DL (8.5-10.1); CREATININE FOR GFR 2.4 MG/DL (0.55-1.30); GLOMERULAR FILTRATION RATE 22.4 (>51); POTASSIUM SERUM 3.9 MEQ/L (3.5-5.1)
[2021-08-13 05:11] LABS: MONO # 2.3 10^3/uL (0.0-0.8)
[2021-08-13] MEDS: HEPARIN DRIP 25,000 UNITS in IV 1 EA IV SCH (06:17)
[2021-08-13] MEDS: POTASSIUM CHLORIDE 10MEQ SR TABLET PO SCH ×2 (08:44→21:03)
[2021-08-13] MEDS: NYSTATIN 100,000 UNITS/GM TOPICAL PWD 15 GM TOP SCH ×2 (08:44→21:03)
[2021-08-13] MEDS: HumaLOG INSULIN (NovoLOG) PER UNIT SC SCH ×4 (08:45→20:57)
[2021-08-13] MEDS ORDERED: NEOSPORIN TOP OINT 15GM TOP STA (10:30)
[2021-08-13] MEDS ORDERED: NEOSPORIN OINT 0.9 GM PKT TOP STA (10:34)
[2021-08-13 10:45] LABS: INR 1.35; PROTHROMBIN TIME 17.1 SECONDS (12.7-14.5)
[2021-08-13 10:47] LABS: PARTIAL THROMBOPLASTIN TIME 72.9 SECONDS (25.9-37.0)
[2021-08-13] MEDS: PIPERACILLIN/TAZOBACTAM SOD 3.375 GM in D5W MINI-BAG PLUS 50 ML IV SCH ×3 (11:11→22:48)
[2021-08-13] MEDS: FUROSEMIDE injection 250 MG in D5W 225 ML IV SCH (11:11)
[2021-08-13 11:26] LABS: CK-MB VALUE MASS 14.7 NG/ML (<3.6); MB/CK RELATIVE INDEX 11.22 (< OR =4)
[2021-08-13] MEDS: MILRINONE/DEXTROSE 20 MG in IV 1 EA IV SCH ×3 (12:26→12:28)
[2021-08-13 13:47] LABS: ABG BASE EXCESS -6.8 (-2.0-2.0); ABG HCO3 18.9 MEQ/L (22.0-26.0); ABG HCO3 24.1 MEQ/L (22.0-26.0); ABG O2 SATURATION 66.9 % (95.0-99.0); ABG O2 SATURATION 71.7 % (95.0-99.0); ABG PARTIAL PRESSURE CO2 38.5 mmHg (35.0-45.0); ABG PARTIAL PRESSURE CO2 46.5 mmHg (35.0-45.0); ABG STANDARD HCO3 18.4 MEQ/L (22.0-26.0); ABG STANDARD HCO3 22.2 MEQ/L (22.0-26.0); ABG TOTAL CO2 25.5 MEQ/L (22.0-29.0); ABG pH (ARTERIAL) 7.308 UNITS (7.350-7.450); ABG pH (ARTERIAL) 7.332 UNITS (7.350-7.450)
[2021-08-13 13:52] LABS: ABG BASE EXCESS -2.8 (-2.0-2.0); ABG O2 SATURATION 60.6 % (95.0-99.0); ABG PARTIAL PRESSURE CO2 43.7 mmHg (35.0-45.0); ABG STANDARD HCO3 21.4 MEQ/L (22.0-26.0); ABG TOTAL CO2 24.3 MEQ/L (22.0-29.0); ABG pH (ARTERIAL) 7.339 UNITS (7.350-7.450)
[2021-08-13 13:53] LABS: ABG PARTIAL PRESSURE O2 36.2 mmHg (75.0-100.0)
[2021-08-13 13:54] LABS: ABG PARTIAL PRESSURE O2 38.6 mmHg (75.0-100.0)
[2021-08-13 16:18] LABS: CALCIUM LEVEL 8.3 MG/DL (8.5-10.1); CREATININE FOR GFR 2.34 MG/DL (0.55-1.30); GLOMERULAR FILTRATION RATE 23.1 (>51); POTASSIUM SERUM 4.6 MEQ/L (3.5-5.1)
[2021-08-13 16:20] LABS: CK-MB VALUE MASS 12.6 NG/ML (<3.6); MB/CK RELATIVE INDEX 10.68 (< OR =4)
[2021-08-13] MEDS: NOREPINEPHRINE BITARTRATE 16 MG in D5W 484 ML IV SCH (18:46)
[2021-08-14] VITALS (49 sets, daily range): BP systolic 125–223; BP diastolic 60–99
[2021-08-14] MEDS: NOREPINEPHRINE BITARTRATE 16 MG in D5W 484 ML IV SCH (00:59)
[2021-08-14] MEDS: PIPERACILLIN/TAZOBACTAM SOD 3.375 GM in D5W MINI-BAG PLUS 50 ML IV SCH ×2 (04:45→10:30)
[2021-08-14 05:26] LABS: BASO # 0.1 10^3/uL (0.0-0.2); BASO % 0.6 % (0.0-1.0); EOS # 0.1 10^3/uL (0.0-0.5); EOS % 0.6 % (0.0-3.0); HEMATOCRIT 36.4 % (36.0-47.0); HEMOGLOBIN 11.5 g/dl (12.0-15.5); LYMPH # 1.7 10^3/uL (1.5-5.0); LYMPH % 9.5 % (24.0-44.0); MEAN CORPUSCULAR HEMOGLOBIN 27.9 pg (27.0-33.0); MEAN CORPUSCULAR HGB CONC 31.6 g/dl (32.0-36.5); MEAN CORPUSCULAR VOLUME 88.3 fl (80.0-96.0); NEUTROPHILS # 14.6 10^3/uL (1.5-8.5); NEUTROPHILS % 79.6 % (36.0-66.0); PLATELET COUNT, AUTOMATED 188 10^3/uL (150-450); RED BLOOD COUNT 4.12 10^6/uL (4.00-5.40); WHITE BLOOD COUNT 18.4 10^3/uL (4.0-10.0)
[2021-08-14 05:30] LABS: MONO # 1.7 10^3/uL (0.0-0.8)
[2021-08-14] MEDS: EPINEPHrine HCL INJ 2 MG in D5W 480 ML IV SCH ×2 (05:32→12:03)
[2021-08-14 05:47] LABS: CALCIUM LEVEL 8.4 MG/DL (8.5-10.1); CREATININE FOR GFR 2.3 MG/DL (0.55-1.30); GLOMERULAR FILTRATION RATE 23.5 (>51); POTASSIUM SERUM 4.1 MEQ/L (3.5-5.1)
[2021-08-14] MEDS: ONDANSETRON 4MG/2ML VIAL IV PRN (06:25)
[2021-08-14] MEDS: HumaLOG INSULIN (NovoLOG) PER UNIT SC SCH ×3 (09:12→12:04)
[2021-08-14] MEDS: NYSTATIN 100,000 UNITS/GM TOPICAL PWD 15 GM TOP SCH (09:13)
[2021-08-14] MEDS: POTASSIUM CHLORIDE 10MEQ SR TABLET PO SCH (09:13)
[2021-08-14] MEDS: MILRINONE/DEXTROSE 20 MG in IV 1 EA IV SCH (10:30)
[2021-08-14] MEDS: FUROSEMIDE injection 250 MG in D5W 225 ML IV SCH (10:30)
[2021-08-14] MEDS: HEPARIN DRIP 25,000 UNITS in IV 1 EA IV SCH (11:05)
== END 2021-08-14 12:34 | disposition short-term general hospital (02) | DRG 951 ==
LOC: M PCU 15:11 → M ICU 08-12 03:21
PROVIDERS: ADMIT Internal Medicine Nephrology; ATTEND Internal Medicine Nephrology
PROC: 05HN33Z Insertion of Infusion Device into Left Internal Jugular Vein, Percutaneous Approach (ICD-10-PCS; principal; 2021-08-12)
PROC: 03HB3DZ Insertion of Intraluminal Device into Right Radial Artery, Percutaneous Approach (ICD-10-PCS; 2021-08-12)
PROC: 02HQ32Z Insertion of Monitoring Device into Right Pulmonary Artery, Percutaneous Approach (ICD-10-PCS; 2021-08-12)
DX: N04.9 Nephrotic syndrome with unspecified morphologic changes (principal); I21.A1 Myocardial infarction type 2; J96.90 Respiratory failure, unspecified, unspecified whether with hypoxia or hypercapnia; R57.0 Cardiogenic shock; I50.33 Acute on chronic diastolic (congestive) heart failure; G93.41 Metabolic encephalopathy; J90 Pleural effusion, not elsewhere classified; E11.22 Type 2 diabetes mellitus with diabetic chronic kidney disease; E11.622 Type 2 diabetes mellitus with other skin ulcer; E87.2 Acidosis; I13.0 Hypertensive heart and chronic kidney disease with heart failure and stage 1 through stage 4 chronic kidney disease, or unspecified chronic kidney disease; I42.9 Cardiomyopathy, unspecified; I27.20 Pulmonary hypertension, unspecified; I27.81 Cor pulmonale (chronic); E66.01 Morbid (severe) obesity due to excess calories; L97.529 Non-pressure chronic ulcer of other part of left foot with unspecified severity; N28.0 Ischemia and infarction of kidney; Z68.43 Body mass index [BMI] 50.0-59.9, adult; L97.519 Non-pressure chronic ulcer of other part of right foot with unspecified severity; N18.30 Chronic kidney disease, stage 3 unspecified; B37.2 Candidiasis of skin and nail; D50.9 Iron deficiency anemia, unspecified; E55.9 Vitamin D deficiency, unspecified; I16.0 Hypertensive urgency; L03.90 Cellulitis, unspecified; R80.9 Proteinuria, unspecified; Z79.4 Long term (current) use of insulin; Z87.891 Personal history of nicotine dependence; Z66 Do not resuscitate; I46.9 Cardiac arrest, cause unspecified; N17.0 Acute kidney failure with tubular necrosis; N25.81 Secondary hyperparathyroidism of renal origin

== ENCOUNTER → 2021-11-06 | Outpatient (REF) | payer MEDICAID ==
[~2021-11-06] MED LIST changes: +LEVE1INJ5 SC
== END ==
LOC: M SFHCWOUN 16:12
PROVIDERS: ATTEND Surgery
DX: I99.8 Other disorder of circulatory system (principal); I96 Gangrene, not elsewhere classified; L97.522 Non-pressure chronic ulcer of other part of left foot with fat layer exposed

== ENCOUNTER → 2021-11-13 | Outpatient (REF) | payer MEDICAID ==
[~2021-11-13] MED LIST changes: +ATOR80TA59 PO; +DOXY100C3 PO; +HYDR100T PO; +INSU100I9 SC; +ISOS1TAB35 PO; +LANTINJ4 SC; +SPIR-10 PO; +TORS20TA2 PO
== END ==
LOC: M SFHCWOUN 15:45
PROVIDERS: ATTEND Surgery
DX: L97.522 Non-pressure chronic ulcer of other part of left foot with fat layer exposed (principal)

== ENCOUNTER 2021-11-14 21:30 | Inpatient (IN) | payer MEDICAID ==
[~2021-11-14] VITALS: Ht 149.9 cm; Wt 76.0 kg
[~2021-11-14 21:30] MED LIST changes: -ATOR80TA59 PO; -DOXY100C3 PO; -HYDR100T PO; -INSU100I9 SC; -ISOS1TAB35 PO; -LANTINJ4 SC; -SPIR-10 PO; -TORS20TA2 PO
[2021-11-14 23:08] VITALS: BP 166/77
[2021-11-14] MEDS ORDERED: DOXY100C3 PO (23:50)
[2021-11-14] MEDS ORDERED: ATOR80TA59 PO (23:50)
[2021-11-14] MEDS ORDERED: TORS20TA2 PO (23:50)
[2021-11-14] MEDS ORDERED: SPIR-10 PO (23:50)
[2021-11-14] MEDS ORDERED: ISOS1TAB35 PO (23:50)
[2021-11-14] MEDS ORDERED: HYDR100T PO (23:50)
[2021-11-14] MEDS ORDERED: LANTINJ4 SC (23:50)
[2021-11-14] MEDS ORDERED: INSU100I9 SC (23:50)
[2021-11-15] MEDS ORDERED: GLUCAGON INJ 1MG VIAL SC PRN (00:10)
[2021-11-15] MEDS ORDERED: DEXTROSE 50% 50 ML SYRINGE IV PRN (00:10)
[2021-11-15] MEDS ORDERED: GLUCOSE 4GM CHEW TABLET PO PRN (00:10)
[2021-11-15] MEDS ORDERED: NS 1,000 ML IV SCH (00:10)
[2021-11-15] MEDS ORDERED: HOME MED LIST COMPLETE! XX SCH (00:45)
[2021-11-15 01:38] LABS: HEMATOCRIT 32.1 % (36.0-47.0); HEMOGLOBIN 10.6 g/dl (12.0-15.5); MEAN CORPUSCULAR HEMOGLOBIN 29.6 pg (27.0-33.0); MEAN CORPUSCULAR VOLUME 89.7 fl (80.0-96.0); PLATELET COUNT, AUTOMATED 341 10^3/uL (150-450); RED BLOOD COUNT 3.58 10^6/uL (4.00-5.40); WHITE BLOOD COUNT 20.1 10^3/uL (4.0-10.0)
[2021-11-15 02:01] LABS: ALBUMIN 1.9 GM/DL (3.2-5.2); BILIRUBIN,TOTAL 1.2 MG/DL (0.2-1.0); CALCIUM LEVEL 8.6 MG/DL (8.5-10.1); CREATININE FOR GFR 1.59 MG/DL (0.55-1.30); POTASSIUM SERUM 3.3 MEQ/L (3.5-5.1); TOTAL PROTEIN 6.5 GM/DL (6.4-8.2)
[2021-11-15] MEDS: VANCOMYCIN HCL 1,000 MG, VIAL MATE ADAPTER 1 EACH in NS 250 ML IV SCH ×2 (02:49→20:59)
[2021-11-15] MEDS ORDERED: POTASSIUM CHLORIDE 10% LIQ 20 MEQ/15 ML UDC PO ONE (02:55)
[2021-11-15] MEDS: HEPARIN SOD (PORCINE) 5000UNITS/ML 1ML VIAL/SYRINGE SC SCH ×3 (04:46→21:55)
[2021-11-15] MEDS: PIPERACILLIN/TAZOBACTAM SOD 3.375 GM in D5W MINI-BAG PLUS 50 ML IV SCH ×4 (04:46→23:03)
[2021-11-15] MEDS: ATORVASTATIN 20 MG TAB PO SCH (08:09)
[2021-11-15] MEDS: INSULIN LISPRO (NovoLOG) PER UNIT SC SCH ×4 (08:09→21:00)
[2021-11-15] MEDS: TORSEMIDE 20 MG TAB PO SCH (08:10)
[2021-11-15] MEDS: **hydrALAZINE** 50 MG TAB PO SCH ×3 (08:15→21:56)
[2021-11-15] MEDS: ISOSORBIDE MON. (IMDUR) 30MG XR TAB PO SCH (08:15)
[2021-11-15 09:00] VITALS: BP 144/68
[2021-11-15] MEDS: SPIRONOLACTONE 25 MG TAB PO SCH (12:13)
[2021-11-15 14:30] VITALS: BP 149/78
[2021-11-15 15:05] LABS: APPEARANCE, URINE CLOUDY (CLEAR); BACTERIA, URINE AUTO 2+ (NEGATIVE); BILIRUBIN, URINE AUTO NEGATIVE (NEGATIVE); BLOOD, URINE BLOOD NEGATIVE (NEGATIVE); CALCIUM OXALATE CRYSTALS SMALL; COLOR, URINE YELLOW (YELLOW); GLUCOSE, URINE (UA) AUTO 1+ mg/dL (NEGATIVE); GRANULAR CAST, URINE AUTO 18 /LPF; KETONE, URINE AUTO TRACE mg/dL (NEGATIVE); LEUKOCYTE ESTERASE, URINE AUTO TRACE (NEGATIVE); MUCUS, URINE SMALL (NEGATIVE); NITRITE, URINE AUTO NEGATIVE (NEGATIVE); PROTEIN, URINE AUTO 2+ mg/dL (NEGATIVE); RBC, URINE AUTO 1 /HPF (0-3); SPECIFIC GRAVITY URINE AUTO 1.016 (1.002-1.035); SQUAMOUS EPITHELIAL CELL UR AU 5 /HPF (0-6); UROBILINOGEN, URINE AUTO 0.2 mg/dL (0.0-2.0); WBC, URINE AUTO 5 /HPF (0-3)
[2021-11-15 15:34] LABS: CREATININE,RANDOM URINE 66.6 MG/DL; TOTAL PROTEIN,RANDOM URINE 375.1 MG/DL (0.0-12.0)
[2021-11-15] MEDS: LEVEMIR (INSULIN DETEMIR) 1 UNITS/0.01ML SC SCH (21:55)
[2021-11-15] MEDS: ACETAMINOPHEN TAB 650MG DOSE (2X325MG) PO PRN (21:56)
[2021-11-15 22:16] VITALS: BP 129/75
[2021-11-15] MEDS: ONDANSETRON 4MG ORAL DISINTEGRATING TAB PO PRN (23:03)
[2021-11-16] MEDS: PIPERACILLIN/TAZOBACTAM SOD 3.375 GM in D5W MINI-BAG PLUS 50 ML IV SCH ×4 (03:01→21:29)
[2021-11-16] MEDS: HEPARIN SOD (PORCINE) 5000UNITS/ML 1ML VIAL/SYRINGE SC SCH ×3 (05:24→21:30)
[2021-11-16 06:00] VITALS: BP 149/75
[2021-11-16 06:38] LABS: CALCIUM LEVEL 8.7 MG/DL (8.5-10.1); CREATININE FOR GFR 1.91 MG/DL (0.55-1.30); GLOMERULAR FILTRATION RATE 29.1 (>51)
[2021-11-16] MEDS: INSULIN LISPRO (NovoLOG) PER UNIT SC SCH ×4 (07:30→21:00)
[2021-11-16] MEDS: **hydrALAZINE** 50 MG TAB PO SCH ×3 (09:54→21:29)
[2021-11-16] MEDS: SPIRONOLACTONE 25 MG TAB PO SCH (09:54)
[2021-11-16] MEDS: ISOSORBIDE MON. (IMDUR) 30MG XR TAB PO SCH (09:54)
[2021-11-16] MEDS: ATORVASTATIN 20 MG TAB PO SCH (09:55)
[2021-11-16] MEDS: TORSEMIDE 20 MG TAB PO SCH (09:55)
[2021-11-16] MEDS: ONDANSETRON 4MG ORAL DISINTEGRATING TAB PO PRN ×2 (13:21→21:29)
[2021-11-16 14:00] VITALS: BP 157/80
[2021-11-16 14:31] LABS: BASO # 0.1 10^3/uL (0.0-0.2); BASO % 0.5 % (0.0-1.0); EOS # 0.3 10^3/uL (0.0-0.5); EOS % 1.2 % (0.0-3.0); HEMATOCRIT 32.2 % (36.0-47.0); HEMOGLOBIN 10.5 g/dl (12.0-15.5); LYMPH % 9.3 % (24.0-44.0); MEAN CORPUSCULAR HEMOGLOBIN 29.5 pg (27.0-33.0); MEAN CORPUSCULAR HGB CONC 32.6 g/dl (32.0-36.5); MEAN CORPUSCULAR VOLUME 90.4 fl (80.0-96.0); MONO % 7.7 % (2.0-8.0); NEUTROPHILS % 80.6 % (36.0-66.0); PLATELET COUNT, AUTOMATED 374 10^3/uL (150-450); RED BLOOD COUNT 3.56 10^6/uL (4.00-5.40); WHITE BLOOD COUNT 21.1 10^3/uL (4.0-10.0)
[2021-11-16 14:38] LABS: MONO # 1.6 10^3/uL (0.0-0.8)
[2021-11-16 15:08] LABS: ERYTHROCYTE SEDIMENTATION RATE 65 mm/hr (0-30)
[2021-11-16 18:00] VITALS: BP 149/71
[2021-11-16 21:26] VITALS: BP 180/98
[2021-11-16] MEDS: LEVEMIR (INSULIN DETEMIR) 1 UNITS/0.01ML SC SCH (21:29)
[2021-11-16] MEDS ORDERED: NS 1,000 ML IV ONE (22:25)
[2021-11-16] MEDS: METOCLOPRAMIDE INJ 10MG/2ML VIAL (J2765 PER 1) IV PRN (22:56)
[2021-11-16 23:41] VITALS: BP 157/81
[2021-11-17] MEDS: PIPERACILLIN/TAZOBACTAM SOD 3.375 GM in D5W MINI-BAG PLUS 50 ML IV SCH ×2 (02:57→08:56)
[2021-11-17] MEDS: ONDANSETRON 4MG ORAL DISINTEGRATING TAB PO PRN ×2 (03:05→21:02)
[2021-11-17] MEDS: HEPARIN SOD (PORCINE) 5000UNITS/ML 1ML VIAL/SYRINGE SC SCH ×3 (05:26→21:05)
[2021-11-17 06:00] VITALS: BP 156/84
[2021-11-17 06:37] LABS: HEMATOCRIT 30.8 % (36.0-47.0); MEAN CORPUSCULAR HGB CONC 32.5 g/dl (32.0-36.5); MEAN CORPUSCULAR VOLUME 89.3 fl (80.0-96.0); PLATELET COUNT, AUTOMATED 353 10^3/uL (150-450); RED BLOOD COUNT 3.45 10^6/uL (4.00-5.40); WHITE BLOOD COUNT 20.4 10^3/uL (4.0-10.0)
[2021-11-17 07:06] LABS: CALCIUM LEVEL 8.7 MG/DL (8.5-10.1); CREATININE FOR GFR 1.85 MG/DL (0.55-1.30); GLOMERULAR FILTRATION RATE 30.2 (>51); POTASSIUM SERUM 3.6 MEQ/L (3.5-5.1)
[2021-11-17 07:30] LABS: ALBUMIN 1.7 GM/DL (3.2-5.2); BASO # 0.1 10^3/uL (0.0-0.2); BASO % 0.4 % (0.0-1.0); BILIRUBIN,TOTAL 0.9 MG/DL (0.2-1.0); C REACTIVE PROTEIN QUANTITATIV 7.06 MG/DL (0.00-0.30); EOS # 0.1 10^3/uL (0.0-0.5); EOS % 0.6 % (0.0-3.0); LYMPH # 1.9 10^3/uL (1.5-5.0); LYMPH % 9.2 % (24.0-44.0); MONO % 8.5 % (2.0-8.0); NEUTROPHILS # 16.5 10^3/uL (1.5-8.5); NEUTROPHILS % 80.3 % (36.0-66.0); TOTAL PROTEIN 6.2 GM/DL (6.4-8.2)
[2021-11-17 08:00] LABS: MONO # 1.7 10^3/uL (0.0-0.8)
[2021-11-17 08:02] LABS: PLATELET ESTIMATE NORMAL (NORMAL)
[2021-11-17] MEDS: METOCLOPRAMIDE INJ 10MG/2ML VIAL (J2765 PER 1) IV PRN ×2 (08:54→17:24)
[2021-11-17] MEDS: INSULIN LISPRO (NovoLOG) PER UNIT SC SCH ×4 (08:54→20:38)
[2021-11-17] MEDS: ISOSORBIDE MON. (IMDUR) 30MG XR TAB PO SCH (08:55)
[2021-11-17] MEDS: **hydrALAZINE** 50 MG TAB PO SCH ×3 (08:55→21:02)
[2021-11-17] MEDS: TORSEMIDE 20 MG TAB PO SCH (08:55)
[2021-11-17] MEDS: SPIRONOLACTONE 25 MG TAB PO SCH (08:55)
[2021-11-17] MEDS: ATORVASTATIN 20 MG TAB PO SCH (08:55)
[2021-11-17 13:50] VITALS: BP 163/86
[2021-11-17] MEDS ORDERED: PIPERACILLIN/TAZOBACTAM SOD 2.25 GM in D5W MINI-BAG PLUS 50 ML IV SCH (15:00)
[2021-11-17] MEDS ORDERED: CEFTAROLINE FOSAMIL 600 MG in D5W MINI-BAG PLUS 50 ML IV SCH (15:40)
[2021-11-17] MEDS: CEFTAROLINE FOSAMIL 600 MG in D5W MINI-BAG PLUS 50 ML IV SCH (17:18)
[2021-11-17] MEDS: metroNIDAZOLE (FLAGYL) 500MG TABLET PO SCH ×2 (17:18→21:02)
[2021-11-17 19:43] VITALS: BP 180/99
[2021-11-17] MEDS: LEVEMIR (INSULIN DETEMIR) 1 UNITS/0.01ML SC SCH (21:00)
[2021-11-17] MEDS: ACETAMINOPHEN TAB 650MG DOSE (2X325MG) PO PRN (21:02)
[2021-11-18] MEDS: METOCLOPRAMIDE INJ 10MG/2ML VIAL (J2765 PER 1) IV PRN ×3 (03:29→15:45)
[2021-11-18 04:55] VITALS: BP 179/99
[2021-11-18] MEDS: HEPARIN SOD (PORCINE) 5000UNITS/ML 1ML VIAL/SYRINGE SC SCH ×4 (05:47→23:44)
[2021-11-18] MEDS: CEFTAROLINE FOSAMIL 600 MG in D5W MINI-BAG PLUS 50 ML IV SCH (05:48)
[2021-11-18 06:06] LABS: HEMOGLOBIN 10.2 g/dl (12.0-15.5); MEAN CORPUSCULAR HEMOGLOBIN 28.6 pg (27.0-33.0); MEAN CORPUSCULAR HGB CONC 31.9 g/dl (32.0-36.5); MEAN CORPUSCULAR VOLUME 89.6 fl (80.0-96.0); PLATELET COUNT, AUTOMATED 416 10^3/uL (150-450); RED BLOOD COUNT 3.57 10^6/uL (4.00-5.40); WHITE BLOOD COUNT 17.2 10^3/uL (4.0-10.0)
[2021-11-18 06:39] LABS: CALCIUM LEVEL 8.8 MG/DL (8.5-10.1); CREATININE FOR GFR 1.83 MG/DL (0.55-1.30); GLOMERULAR FILTRATION RATE 30.6 (>51); MAGNESIUM LEVEL 1.9 MG/DL (1.8-2.4); PHOSPHORUS LEVEL 3.8 MG/DL (2.5-4.9); POTASSIUM SERUM 3.7 MEQ/L (3.5-5.1); VANCOMYCIN RANDOM 19.8 UG/ML
[2021-11-18] MEDS: INSULIN LISPRO (NovoLOG) PER UNIT SC SCH ×4 (07:30→21:00)
[2021-11-18] MEDS: ONDANSETRON 4MG ORAL DISINTEGRATING TAB PO PRN ×2 (08:50→18:37)
[2021-11-18] MEDS ORDERED: amLODIPine 5 MG TAB PO SCH (09:00)
[2021-11-18] MEDS: TORSEMIDE 20 MG TAB PO SCH (09:02)
[2021-11-18] MEDS: ATORVASTATIN 20 MG TAB PO SCH (09:05)
[2021-11-18] MEDS: ISOSORBIDE MON. (IMDUR) 30MG XR TAB PO SCH (09:05)
[2021-11-18] MEDS: metroNIDAZOLE (FLAGYL) 500MG TABLET PO SCH ×4 (09:06→23:44)
[2021-11-18] MEDS: **hydrALAZINE** 50 MG TAB PO SCH ×2 (09:07→15:45)
[2021-11-18] MEDS: SPIRONOLACTONE 25 MG TAB PO SCH (09:07)
[2021-11-18] MEDS ORDERED: amLODIPine 5 MG TAB PO ONE (13:00)
[2021-11-18] MEDS ORDERED: ISOSORBIDE MON. (IMDUR) 30MG XR TAB PO ONE (13:50)
[2021-11-18 14:22] VITALS: BP 182/107
[2021-11-18] MEDS: CEFTAROLINE FOSAMIL 400 MG in D5W MINI-BAG PLUS 50 ML IV SCH (18:26)
[2021-11-18] MEDS: LEVEMIR (INSULIN DETEMIR) 1 UNITS/0.01ML SC SCH ×2 (21:00→23:45)
[2021-11-19] VITALS (212 sets, daily range): BP systolic 57–209; BP diastolic 31–157
[2021-11-19] MEDS ORDERED: NS 500 ML IV ONE
[2021-11-19] MEDS ORDERED: NS 1,000 ML IV ONE (01:00)
[2021-11-19 01:01] LABS: VENOUS BASE EXCESS -11.2 (-2.0-2.0); VENOUS HCO3 13.6 MEQ/L (23.0-27.0); VENOUS O2 SATURATION 91.4 % (60.0-80.0); VENOUS PARTIAL PRESSURE CO2 27.4 mmHg (38.0-50.0); VENOUS PARTIAL PRESSURE O2 66.9 mmHg (30.0-50.0); VENOUS PH 7.313 UNITS (7.330-7.430); VENOUS STANDARD HCO3 15.4 MEQ/L; VENOUS TOTAL CO2 14.4 MEQ/L (24.0-28.0)
[2021-11-19 01:17] LABS: BASO # 0.1 10^3/uL (0.0-0.2); BASO % 0.3 % (0.0-1.0); EOS % 0.1 % (0.0-3.0); HEMATOCRIT 29.1 % (36.0-47.0); HEMOGLOBIN 9.4 g/dl (12.0-15.5); LYMPH # 0.9 10^3/uL (1.5-5.0); LYMPH % 5.8 % (24.0-44.0); MEAN CORPUSCULAR HEMOGLOBIN 29.6 pg (27.0-33.0); MEAN CORPUSCULAR HGB CONC 32.3 g/dl (32.0-36.5); MEAN CORPUSCULAR VOLUME 91.5 fl (80.0-96.0); MONO # 0.8 10^3/uL (0.0-0.8); MONO % 4.8 % (2.0-8.0); NEUTROPHILS # 13.9 10^3/uL (1.5-8.5); NEUTROPHILS % 86.7 % (36.0-66.0); PLATELET COUNT, AUTOMATED 358 10^3/uL (150-450); RED BLOOD COUNT 3.18 10^6/uL (4.00-5.40)
[2021-11-19 01:43] LABS: CALCIUM LEVEL 8.9 MG/DL (8.5-10.1); CREATININE FOR GFR 2.22 MG/DL (0.55-1.30); GLOMERULAR FILTRATION RATE 24.5 (>51); MAGNESIUM LEVEL 1.9 MG/DL (1.8-2.4); POTASSIUM SERUM 4.4 MEQ/L (3.5-5.1)
[2021-11-19] MEDS: levETIRAcetam INJection 500 MG in D5W MINI-BAG PLUS 100 ML IV SCH ×2 (02:00→13:06)
[2021-11-19] MEDS ORDERED: NOREPINEPHRINE 8MG IN 500ML DEXTROSE 5% BAG As Ordered ONE (02:00)
[2021-11-19] MEDS ORDERED: VASOPRESSIN INJ 20 UNITS/ML VIAL As Ordered ONE (02:26)
[2021-11-19 04:15] LABS: BASO # 0.1 10^3/uL (0.0-0.2); BASO % 0.4 % (0.0-1.0); HEMATOCRIT 29.3 % (36.0-47.0); HEMOGLOBIN 9.6 g/dl (12.0-15.5); LYMPH # 0.9 10^3/uL (1.5-5.0); LYMPH % 3.6 % (24.0-44.0); MEAN CORPUSCULAR HEMOGLOBIN 29.8 pg (27.0-33.0); MEAN CORPUSCULAR HGB CONC 32.8 g/dl (32.0-36.5); MONO % 3.8 % (2.0-8.0); NEUTROPHILS # 22.1 10^3/uL (1.5-8.5); NEUTROPHILS % 87.6 % (36.0-66.0); PLATELET COUNT, AUTOMATED 351 10^3/uL (150-450); RED BLOOD COUNT 3.22 10^6/uL (4.00-5.40); WHITE BLOOD COUNT 25.3 10^3/uL (4.0-10.0)
[2021-11-19 05:21] LABS: CALCIUM LEVEL 8.3 MG/DL (8.5-10.1); CREATININE FOR GFR 2.12 MG/DL (0.55-1.30); GLOMERULAR FILTRATION RATE 25.8 (>51); MAGNESIUM LEVEL 1.8 MG/DL (1.8-2.4); POTASSIUM SERUM 3.7 MEQ/L (3.5-5.1)
[2021-11-19] MEDS: HEPARIN SOD (PORCINE) 5000UNITS/ML 1ML VIAL/SYRINGE SC SCH ×3 (06:09→21:35)
[2021-11-19] MEDS: CEFTAROLINE FOSAMIL 400 MG in D5W MINI-BAG PLUS 50 ML IV SCH ×2 (06:09→18:40)
[2021-11-19] MEDS ORDERED: VASOPRESSIN INJ 20 UNITS in NS 499 ML IV SCH (06:20)
[2021-11-19] MEDS: NOREPINEPHRINE/DEXTROSE 8 MG in IV 1 EA IV SCH ×2 (06:49→19:40)
[2021-11-19 07:31] LABS: PROLACTIN 69.2 NG/ML
[2021-11-19] MEDS ORDERED: ISOSORBIDE MON. (IMDUR) 60MG XR TAB PO SCH (09:00)
[2021-11-19] MEDS: metroNIDAZOLE (FLAGYL) 500MG TABLET PO SCH ×3 (09:11→21:35)
[2021-11-19] MEDS: ATORVASTATIN 20 MG TAB PO SCH (09:11)
[2021-11-19] MEDS: INSULIN LISPRO (NovoLOG) PER UNIT SC SCH ×4 (09:20→21:00)
[2021-11-19] MEDS: METOCLOPRAMIDE INJ 10MG/2ML VIAL (J2765 PER 1) IV PRN (11:00)
[2021-11-19] MEDS: ONDANSETRON 4MG 2ML VIAL IV PRN (13:30)
[2021-11-19 20:21] LABS: C REACTIVE PROTEIN QUANTITATIV 4.75 MG/DL (0.00-0.30)
[2021-11-19] MEDS: PANTOPRAZOLE 40MG VIAL IV SCH (21:35)
[2021-11-19] MEDS: LEVEMIR (INSULIN DETEMIR) 1 UNITS/0.01ML SC SCH (21:36)
[2021-11-20] VITALS (21 sets, daily range): BP systolic 96–182; BP diastolic 44–84
[2021-11-20] MEDS: levETIRAcetam INJection 500 MG in D5W MINI-BAG PLUS 100 ML IV SCH ×2 (02:10→14:39)
[2021-11-20 05:33] LABS: HEMATOCRIT 28.1 % (36.0-47.0); HEMOGLOBIN 9.2 g/dl (12.0-15.5); MEAN CORPUSCULAR HGB CONC 32.7 g/dl (32.0-36.5); MEAN CORPUSCULAR VOLUME 88.6 fl (80.0-96.0); PLATELET COUNT, AUTOMATED 310 10^3/uL (150-450); RED BLOOD COUNT 3.17 10^6/uL (4.00-5.40); WHITE BLOOD COUNT 21.3 10^3/uL (4.0-10.0)
[2021-11-20 05:55] LABS: CALCIUM LEVEL 8.2 MG/DL (8.5-10.1); CREATININE FOR GFR 2.9 MG/DL (0.55-1.30); POTASSIUM SERUM 3.6 MEQ/L (3.5-5.1)
[2021-11-20] MEDS: HEPARIN SOD (PORCINE) 5000UNITS/ML 1ML VIAL/SYRINGE SC SCH ×3 (06:12→21:00)
[2021-11-20] MEDS: CEFTAROLINE FOSAMIL 400 MG in D5W MINI-BAG PLUS 50 ML IV SCH (06:12)
[2021-11-20] MEDS: INSULIN LISPRO (NovoLOG) PER UNIT SC SCH ×4 (07:30→21:00)
[2021-11-20] MEDS: ATORVASTATIN 20 MG TAB PO SCH (09:33)
[2021-11-20] MEDS: PANTOPRAZOLE 40MG VIAL IV SCH ×2 (09:34→20:59)
[2021-11-20] MEDS: metroNIDAZOLE (FLAGYL) 500MG TABLET PO SCH ×3 (09:34→20:59)
[2021-11-20] MEDS: METOCLOPRAMIDE INJ 10MG/2ML VIAL (J2765 PER 1) IV PRN (11:12)
[2021-11-20] MEDS: SODIUM BICARBONATE 150 MEQ in STERILE WATER LITER BAG 1,000 ML IV SCH (11:30)
[2021-11-20] MEDS ORDERED: MAG SULF 1GM/100ML (MAG RUN) 1 GM in IV 1 EA IV ONE (13:00)
[2021-11-20] MEDS: ONDANSETRON 4MG 2ML VIAL IV PRN (14:39)
[2021-11-20] MEDS: CEFTAROLINE FOSAMIL 300 MG in D5W 50 ML IV SCH (18:49)
[2021-11-20] MEDS: TORSEMIDE 20 MG TAB PO SCH (20:59)
[2021-11-20] MEDS: METOPROLOL TART 25 MG TABLET PO SCH (20:59)
[2021-11-20] MEDS: LEVEMIR (INSULIN DETEMIR) 1 UNITS/0.01ML SC SCH (20:59)
[2021-11-21] MEDS: METOCLOPRAMIDE INJ 10MG/2ML VIAL (J2765 PER 1) IV PRN (00:23)
[2021-11-21] MEDS: SODIUM BICARBONATE 150 MEQ in STERILE WATER LITER BAG 1,000 ML IV SCH ×2 (01:42→20:14)
[2021-11-21] MEDS: levETIRAcetam INJection 500 MG in D5W MINI-BAG PLUS 100 ML IV SCH ×2 (02:07→14:34)
[2021-11-21 03:40] VITALS: BP 150/68
[2021-11-21] MEDS: CEFTAROLINE FOSAMIL 300 MG in D5W 50 ML IV SCH ×2 (05:02→18:10)
[2021-11-21] MEDS: HEPARIN SOD (PORCINE) 5000UNITS/ML 1ML VIAL/SYRINGE SC SCH ×3 (05:02→21:01)
[2021-11-21 05:30] LABS: HEMATOCRIT 26.5 % (36.0-47.0); HEMOGLOBIN 8.7 g/dl (12.0-15.5); MEAN CORPUSCULAR HEMOGLOBIN 28.9 pg (27.0-33.0); MEAN CORPUSCULAR HGB CONC 32.8 g/dl (32.0-36.5); PLATELET COUNT, AUTOMATED 238 10^3/uL (150-450); RED BLOOD COUNT 3.01 10^6/uL (4.00-5.40); WHITE BLOOD COUNT 15.2 10^3/uL (4.0-10.0)
[2021-11-21 06:01] LABS: CALCIUM LEVEL 8.2 MG/DL (8.5-10.1); CREATININE FOR GFR 2.68 MG/DL (0.55-1.30); GLOMERULAR FILTRATION RATE 19.7 (>51); POTASSIUM SERUM 3.4 MEQ/L (3.5-5.1)
[2021-11-21] MEDS ORDERED: POTASSIUM CHLORIDE 10MEQ SR TABLET PO ONE ×2 (06:50→07:00)
[2021-11-21 08:00] VITALS: BP 136/62
[2021-11-21] MEDS: INSULIN LISPRO (NovoLOG) PER UNIT SC SCH ×4 (08:31→20:15)
[2021-11-21] MEDS: metroNIDAZOLE (FLAGYL) 500MG TABLET PO SCH ×3 (08:32→20:14)
[2021-11-21] MEDS: ATORVASTATIN 20 MG TAB PO SCH (08:32)
[2021-11-21] MEDS: TORSEMIDE 20 MG TAB PO SCH (08:32)
[2021-11-21] MEDS: METOPROLOL TART 25 MG TABLET PO SCH ×2 (08:33→20:14)
[2021-11-21] MEDS: ONDANSETRON 4MG 2ML VIAL IV PRN (08:33)
[2021-11-21] MEDS: PANTOPRAZOLE 40MG VIAL IV SCH ×2 (08:33→20:15)
[2021-11-21 11:52] VITALS: BP 144/62
[2021-11-21 15:48] LABS: PERCENT SATURATION 92.9 % (13.2-45.0)
[2021-11-21 16:00] VITALS: BP 144/62
[2021-11-21 18:22] LABS: HEMATOCRIT 29.7 % (36.0-47.0)
[2021-11-21 20:00] VITALS: BP 143/60
[2021-11-21] MEDS: LEVEMIR (INSULIN DETEMIR) 1 UNITS/0.01ML SC SCH (20:15)
[2021-11-21 23:47] VITALS: BP 129/59
[2021-11-22] VITALS (12 sets, daily range): BP systolic 124–199; BP diastolic 54–90
[2021-11-22] MEDS: levETIRAcetam INJection 500 MG in D5W MINI-BAG PLUS 100 ML IV SCH (01:04)
[2021-11-22] MEDS: HEPARIN SOD (PORCINE) 5000UNITS/ML 1ML VIAL/SYRINGE SC SCH ×3 (05:06→21:31)
[2021-11-22] MEDS: CEFTAROLINE FOSAMIL 300 MG in D5W 50 ML IV SCH ×2 (05:06→17:45)
[2021-11-22 05:19] LABS: HEMATOCRIT 26.6 % (36.0-47.0); HEMOGLOBIN 8.7 g/dl (12.0-15.5); MEAN CORPUSCULAR HEMOGLOBIN 28.6 pg (27.0-33.0); MEAN CORPUSCULAR HGB CONC 32.7 g/dl (32.0-36.5); MEAN CORPUSCULAR VOLUME 87.5 fl (80.0-96.0); PLATELET COUNT, AUTOMATED 207 10^3/uL (150-450); RED BLOOD COUNT 3.04 10^6/uL (4.00-5.40); WHITE BLOOD COUNT 12.2 10^3/uL (4.0-10.0)
[2021-11-22 05:46] LABS: CREATININE FOR GFR 2.36 MG/DL (0.55-1.30); GLOMERULAR FILTRATION RATE 22.8 (>51); MAGNESIUM LEVEL 1.6 MG/DL (1.8-2.4); POTASSIUM SERUM 3.1 MEQ/L (3.5-5.1)
[2021-11-22] MEDS: INSULIN LISPRO (NovoLOG) PER UNIT SC SCH ×4 (07:30→21:00)
[2021-11-22] MEDS ORDERED: POTASSIUM CHLORIDE 10MEQ SR TABLET PO ONE ×2 (08:00→16:00)
[2021-11-22] MEDS: TORSEMIDE 20 MG TAB PO SCH (08:36)
[2021-11-22] MEDS: metroNIDAZOLE (FLAGYL) 500MG TABLET PO SCH ×3 (08:37→21:32)
[2021-11-22] MEDS: METOPROLOL TART 25 MG TABLET PO SCH ×2 (08:37→21:32)
[2021-11-22] MEDS: ATORVASTATIN 20 MG TAB PO SCH (08:37)
[2021-11-22] MEDS: PANTOPRAZOLE 40MG VIAL IV SCH (08:38)
[2021-11-22] MEDS: levETIRAcetam 250MG TABLET (KEPPRA) PO SCH ×2 (09:00→21:32)
[2021-11-22] MEDS: MAG SULF 1GM/100ML (MAG RUN) 1 GM in IV 1 EA IV SCH ×2 (10:52→11:30)
[2021-11-22] MEDS: LACTOBACILLUS ACIDOPHILUS CAP (BACID) PO SCH (10:52)
[2021-11-22] MEDS: ONDANSETRON 4MG 2ML VIAL IV PRN (11:29)
[2021-11-22 14:06] LABS: CLOSTRIDIUM DIFFICILE PCR NEGATIVE (NEGATIVE)
[2021-11-22] MEDS: **hydrALAZINE** 50 MG TAB PO SCH ×3 (16:00→21:31)
[2021-11-22] MEDS ORDERED: **hydrALAZINE** 50 MG TAB PO ONE (18:35)
[2021-11-22] MEDS: LEVEMIR (INSULIN DETEMIR) 1 UNITS/0.01ML SC SCH (21:00)
[2021-11-23] VITALS (10 sets, daily range): BP systolic 144–173; BP diastolic 63–77
[2021-11-23] MEDS ORDERED: amLODIPine 5 MG TAB PO ONE
[2021-11-23] MEDS ORDERED: ISOSORBIDE MON. (IMDUR) 30MG XR TAB PO ONE
[2021-11-23] MEDS: METOCLOPRAMIDE INJ 10MG/2ML VIAL (J2765 PER 1) IV PRN (02:15)
[2021-11-23] MEDS: HEPARIN SOD (PORCINE) 5000UNITS/ML 1ML VIAL/SYRINGE SC SCH ×3 (05:25→21:43)
[2021-11-23] MEDS: **hydrALAZINE** 50 MG TAB PO SCH ×2 (05:26→15:18)
[2021-11-23] MEDS: CEFTAROLINE FOSAMIL 300 MG in D5W 50 ML IV SCH ×2 (05:26→18:08)
[2021-11-23 05:59] LABS: HEMATOCRIT 28.2 % (36.0-47.0); HEMOGLOBIN 9.4 g/dl (12.0-15.5); MEAN CORPUSCULAR HEMOGLOBIN 29.5 pg (27.0-33.0); MEAN CORPUSCULAR HGB CONC 33.3 g/dl (32.0-36.5); MEAN CORPUSCULAR VOLUME 88.4 fl (80.0-96.0); PLATELET COUNT, AUTOMATED 246 10^3/uL (150-450); RED BLOOD COUNT 3.19 10^6/uL (4.00-5.40); WHITE BLOOD COUNT 15.3 10^3/uL (4.0-10.0)
[2021-11-23 06:32] LABS: CALCIUM LEVEL 8.4 MG/DL (8.5-10.1); CREATININE FOR GFR 2.26 MG/DL (0.55-1.30); MAGNESIUM LEVEL 1.8 MG/DL (1.8-2.4); PHOSPHORUS LEVEL 2.2 MG/DL (2.5-4.9); POTASSIUM SERUM 3.8 MEQ/L (3.5-5.1)
[2021-11-23] MEDS: INSULIN LISPRO (NovoLOG) PER UNIT SC SCH ×4 (07:30→20:41)
[2021-11-23] MEDS: levETIRAcetam 250MG TABLET (KEPPRA) PO SCH ×2 (08:59→21:41)
[2021-11-23] MEDS: metroNIDAZOLE (FLAGYL) 500MG TABLET PO SCH ×3 (08:59→21:41)
[2021-11-23] MEDS: LACTOBACILLUS ACIDOPHILUS CAP (BACID) PO SCH (08:59)
[2021-11-23] MEDS: METOPROLOL TART 25 MG TABLET PO SCH ×2 (09:00→21:41)
[2021-11-23] MEDS: ATORVASTATIN 20 MG TAB PO SCH (09:04)
[2021-11-23] MEDS: DARBEPOETIN 100 MCG/0.5 ML *NON-DIALYSIS* SYRINGE (J0881) SC SCH (10:56)
[2021-11-23] MEDS: **hydrALAZINE HCL** 25 MG TAB PO SCH ×2 (16:00→21:41)
[2021-11-23] MEDS: ISOSORBIDE MON. (IMDUR) 30MG XR TAB PO SCH (18:08)
[2021-11-23] MEDS: ONDANSETRON 4MG 2ML VIAL IV PRN (18:16)
[2021-11-23] MEDS: LEVEMIR (INSULIN DETEMIR) 1 UNITS/0.01ML SC SCH (21:42)
[2021-11-24 03:00] VITALS: BP 137/73
[2021-11-24] MEDS: HEPARIN SOD (PORCINE) 5000UNITS/ML 1ML VIAL/SYRINGE SC SCH ×3 (04:54→21:30)
[2021-11-24] MEDS: CEFTAROLINE FOSAMIL 300 MG in D5W 50 ML IV SCH ×2 (05:00→18:08)
[2021-11-24 05:53] VITALS: BP 119/52
[2021-11-24 07:19] LABS: C REACTIVE PROTEIN QUANTITATIV 1.9 MG/DL (0.00-0.30)
[2021-11-24] MEDS: METOPROLOL TART 25 MG TABLET PO SCH ×2 (09:13→21:31)
[2021-11-24] MEDS: ATORVASTATIN 20 MG TAB PO SCH (09:14)
[2021-11-24] MEDS: **hydrALAZINE HCL** 25 MG TAB PO SCH ×3 (09:14→21:32)
[2021-11-24] MEDS: metroNIDAZOLE (FLAGYL) 500MG TABLET PO SCH ×3 (09:14→21:29)
[2021-11-24] MEDS: levETIRAcetam 250MG TABLET (KEPPRA) PO SCH ×2 (09:14→21:29)
[2021-11-24] MEDS: ISOSORBIDE MON. (IMDUR) 30MG XR TAB PO SCH (09:15)
[2021-11-24] MEDS: LACTOBACILLUS ACIDOPHILUS CAP (BACID) PO SCH (09:15)
[2021-11-24] MEDS: INSULIN LISPRO (NovoLOG) PER UNIT SC SCH ×4 (09:15→20:36)
[2021-11-24] MEDS: OMEPRAZOLE 20MG CAP PO SCH (11:01)
[2021-11-24 14:00] VITALS: BP 160/78
[2021-11-24] MEDS: ONDANSETRON 4MG 2ML VIAL IV PRN (18:07)
[2021-11-24] MEDS ORDERED: NYSTATIN 100,000 UNITS/GM TOPICAL PWD 15 GM TOP PRN (19:55)
[2021-11-24 20:30] LABS: CALCIUM LEVEL 8.3 MG/DL (8.5-10.1); CREATININE FOR GFR 2.07 MG/DL (0.55-1.30); GLOMERULAR FILTRATION RATE 26.6 (>51); POTASSIUM SERUM 3.5 MEQ/L (3.5-5.1)
[2021-11-24] MEDS: K-PHOS ORIGINAL (POT.ACID PHOSPHATE) 500MG TAB PO SCH (21:29)
[2021-11-24] MEDS: LEVEMIR (INSULIN DETEMIR) 1 UNITS/0.01ML SC SCH (21:30)
[2021-11-24 22:00] VITALS: BP 158/77
[2021-11-25] VITALS (8 sets, daily range): BP systolic 115–160; BP diastolic 48–73
[2021-11-25] MEDS: HEPARIN SOD (PORCINE) 5000UNITS/ML 1ML VIAL/SYRINGE SC SCH ×3 (04:52→21:17)
[2021-11-25] MEDS: CEFTAROLINE FOSAMIL 300 MG in D5W 50 ML IV SCH ×2 (05:02→17:28)
[2021-11-25] MEDS: INSULIN LISPRO (NovoLOG) PER UNIT SC SCH ×4 (07:30→21:00)
[2021-11-25] MEDS: levETIRAcetam 250MG TABLET (KEPPRA) PO SCH ×2 (07:33→21:16)
[2021-11-25] MEDS: ISOSORBIDE MON. (IMDUR) 30MG XR TAB PO SCH (07:34)
[2021-11-25] MEDS: **hydrALAZINE HCL** 25 MG TAB PO SCH ×3 (07:35→20:57)
[2021-11-25] MEDS: METOPROLOL TART 25 MG TABLET PO SCH ×2 (07:35→21:00)
[2021-11-25] MEDS: K-PHOS ORIGINAL (POT.ACID PHOSPHATE) 500MG TAB PO SCH (07:46)
[2021-11-25] MEDS: ATORVASTATIN 20 MG TAB PO SCH (07:46)
[2021-11-25] MEDS: OMEPRAZOLE 20MG CAP PO SCH (07:46)
[2021-11-25] MEDS: metroNIDAZOLE (FLAGYL) 500MG TABLET PO SCH ×3 (07:47→21:16)
[2021-11-25] MEDS: LACTOBACILLUS ACIDOPHILUS CAP (BACID) PO SCH (07:47)
[2021-11-25 08:30] LABS: HEMATOCRIT 27.1 % (36.0-47.0); HEMOGLOBIN 8.7 g/dl (12.0-15.5); MEAN CORPUSCULAR HEMOGLOBIN 28.5 pg (27.0-33.0); MEAN CORPUSCULAR HGB CONC 32.1 g/dl (32.0-36.5); MEAN CORPUSCULAR VOLUME 88.9 fl (80.0-96.0); PLATELET COUNT, AUTOMATED 247 10^3/uL (150-450); RED BLOOD COUNT 3.05 10^6/uL (4.00-5.40); WHITE BLOOD COUNT 15.5 10^3/uL (4.0-10.0)
[2021-11-25] MEDS: ONDANSETRON 4MG 2ML VIAL IV PRN (08:46)
[2021-11-25 08:51] LABS: ALBUMIN 1.8 GM/DL (3.2-5.2); CALCIUM LEVEL 8.3 MG/DL (8.5-10.1); CREATININE FOR GFR 2.01 MG/DL (0.55-1.30); GLOMERULAR FILTRATION RATE 27.5 (>51); MAGNESIUM LEVEL 1.9 MG/DL (1.8-2.4); POTASSIUM SERUM 3.4 MEQ/L (3.5-5.1)
[2021-11-25] MEDS: BENZONATATE 100MG CAPSULE PO SCH ×2 (09:00→21:16)
[2021-11-25] MEDS ORDERED: propofoL 200 MG/20 ML VIAL As Ordered ONE (12:26)
[2021-11-25] MEDS ORDERED: LIDOCAINE 2% 100MG/5ML SDV (FOR ANES.) As Ordered ONE (12:26)
[2021-11-25] MEDS ORDERED: ONDANSETRON 4MG 2ML VIAL As Ordered ONE (12:26)
[2021-11-25] MEDS ORDERED: fentaNYL 100 MCG/2 ML INJECTION As Ordered ONE (12:27)
[2021-11-25] MEDS ORDERED: MIDAZOLAM INJ 2MG/2ML VIAL (J2250 PER 1MG) As Ordered ONE (12:27)
[2021-11-25] MEDS ORDERED: BUPIVACAINE HCL 0.5% 30ML VIAL As Ordered ONE (12:29)
[2021-11-25] MEDS ORDERED: LIDOCAINE 1% MDV 20ML VIAL As Ordered ONE (12:29)
[2021-11-25] MEDS ORDERED: LR 1,000 ML IV SCH (13:35)
[2021-11-25] MEDS ORDERED: MORPHINE 2 MG/ML 1ML VIAL IV PRN (13:35)
[2021-11-25] MEDS ORDERED: ONDANSETRON 4MG 2ML VIAL IV PRN (13:35)
[2021-11-25] MEDS ORDERED: PERCOCET 5MG/325MG TAB PO PRN (13:35)
[2021-11-25] MEDS ORDERED: fentaNYL 100 MCG/2 ML INJECTION IV PRN (13:35)
[2021-11-25] MEDS ORDERED: POTASSIUM CHLORIDE 10MEQ SR TABLET PO ONE (17:30)
[2021-11-25] MEDS: LEVEMIR (INSULIN DETEMIR) 1 UNITS/0.01ML SC SCH (21:17)
[2021-11-26] VITALS (7 sets, daily range): BP systolic 132–164; BP diastolic 58–73
[2021-11-26] MEDS: HEPARIN SOD (PORCINE) 5000UNITS/ML 1ML VIAL/SYRINGE SC SCH ×3 (05:17→21:26)
[2021-11-26] MEDS: CEFTAROLINE FOSAMIL 300 MG in D5W 50 ML IV SCH ×2 (05:17→17:23)
[2021-11-26] MEDS: INSULIN LISPRO (NovoLOG) PER UNIT SC SCH ×4 (07:30→20:55)
[2021-11-26] MEDS: metroNIDAZOLE (FLAGYL) 500MG TABLET PO SCH ×3 (08:38→21:25)
[2021-11-26] MEDS: ONDANSETRON 4MG 2ML VIAL IV PRN (08:38)
[2021-11-26] MEDS: BENZONATATE 100MG CAPSULE PO SCH ×2 (08:38→21:25)
[2021-11-26] MEDS: OMEPRAZOLE 20MG CAP PO SCH (08:38)
[2021-11-26] MEDS: levETIRAcetam 250MG TABLET (KEPPRA) PO SCH ×2 (08:38→21:25)
[2021-11-26] MEDS: **hydrALAZINE HCL** 25 MG TAB PO SCH ×3 (08:39→21:25)
[2021-11-26] MEDS: ISOSORBIDE MON. (IMDUR) 30MG XR TAB PO SCH (08:39)
[2021-11-26] MEDS: ATORVASTATIN 20 MG TAB PO SCH (08:39)
[2021-11-26] MEDS: LACTOBACILLUS ACIDOPHILUS CAP (BACID) PO SCH (08:39)
[2021-11-26] MEDS: METOPROLOL TART 25 MG TABLET PO SCH ×2 (08:40→21:25)
[2021-11-26] MEDS ORDERED: MOM 30ML SUSPENSION UDC PO PRN (11:25)
[2021-11-26] MEDS: K-PHOS ORIGINAL (POT.ACID PHOSPHATE) 500MG TAB PO SCH ×2 (15:35→21:25)
[2021-11-26] MEDS: LEVEMIR (INSULIN DETEMIR) 1 UNITS/0.01ML SC SCH (21:26)
[2021-11-27 05:33] VITALS: BP 180/73
[2021-11-27] MEDS: CEFTAROLINE FOSAMIL 300 MG in D5W 50 ML IV SCH ×2 (05:45→17:20)
[2021-11-27] MEDS: HEPARIN SOD (PORCINE) 5000UNITS/ML 1ML VIAL/SYRINGE SC SCH ×3 (05:45→21:52)
[2021-11-27] MEDS: METOPROLOL TART 25 MG TABLET PO SCH ×3 (05:55→21:51)
[2021-11-27] MEDS: **hydrALAZINE HCL** 25 MG TAB PO SCH ×3 (05:57→21:00)
[2021-11-27] MEDS: LACTOBACILLUS ACIDOPHILUS CAP (BACID) PO SCH (09:00)
[2021-11-27] MEDS: OMEPRAZOLE 20MG CAP PO SCH (09:00)
[2021-11-27] MEDS: levETIRAcetam 250MG TABLET (KEPPRA) PO SCH ×2 (09:00→21:47)
[2021-11-27] MEDS: ATORVASTATIN 20 MG TAB PO SCH (09:00)
[2021-11-27] MEDS: metroNIDAZOLE (FLAGYL) 500MG TABLET PO SCH ×3 (09:00→21:48)
[2021-11-27] MEDS: K-PHOS ORIGINAL (POT.ACID PHOSPHATE) 500MG TAB PO SCH (09:00)
[2021-11-27] MEDS: INSULIN LISPRO (NovoLOG) PER UNIT SC SCH ×4 (09:03→20:55)
[2021-11-27] MEDS: ISOSORBIDE MON. (IMDUR) 30MG XR TAB PO SCH (09:03)
[2021-11-27 14:00] VITALS: BP 144/73
[2021-11-27] MEDS ORDERED: POTASSIUM CHLORIDE 10MEQ SR TABLET PO ONE (17:00)
[2021-11-27] MEDS: ONDANSETRON 4MG 2ML VIAL IV PRN (18:28)
[2021-11-27 20:35] VITALS: BP 142/68
[2021-11-27] MEDS: LEVEMIR (INSULIN DETEMIR) 1 UNITS/0.01ML SC SCH (21:00)
[2021-11-27] MEDS: LINEZOLID 600MG TABLET (ZYVOX) PO SCH (21:48)
[2021-11-28] MEDS: HEPARIN SOD (PORCINE) 5000UNITS/ML 1ML VIAL/SYRINGE SC SCH ×3 (05:12→20:58)
[2021-11-28 05:38] VITALS: BP 120/58
[2021-11-28] MEDS: INSULIN LISPRO (NovoLOG) PER UNIT SC SCH ×4 (08:33→20:44)
[2021-11-28] MEDS: OMEPRAZOLE 20MG CAP PO SCH (08:35)
[2021-11-28] MEDS: LACTOBACILLUS ACIDOPHILUS CAP (BACID) PO SCH (08:35)
[2021-11-28] MEDS: levETIRAcetam 250MG TABLET (KEPPRA) PO SCH ×2 (08:35→20:58)
[2021-11-28] MEDS: ATORVASTATIN 20 MG TAB PO SCH (08:35)
[2021-11-28] MEDS: LINEZOLID 600MG TABLET (ZYVOX) PO SCH ×2 (08:36→20:58)
[2021-11-28] MEDS: **hydrALAZINE HCL** 25 MG TAB PO SCH ×3 (08:37→21:00)
[2021-11-28] MEDS: ISOSORBIDE MON. (IMDUR) 30MG XR TAB PO SCH (08:37)
[2021-11-28] MEDS: METOPROLOL TART 25 MG TABLET PO SCH ×2 (08:38→20:59)
[2021-11-28] MEDS: metroNIDAZOLE (FLAGYL) 500MG TABLET PO SCH ×3 (08:43→20:58)
[2021-11-28 08:45] LABS: HEMATOCRIT 25.1 % (36.0-47.0); HEMOGLOBIN 7.9 g/dl (12.0-15.5); MEAN CORPUSCULAR HEMOGLOBIN 28.8 pg (27.0-33.0); MEAN CORPUSCULAR HGB CONC 31.5 g/dl (32.0-36.5); MEAN CORPUSCULAR VOLUME 91.6 fl (80.0-96.0); PLATELET COUNT, AUTOMATED 259 10^3/uL (150-450); RED BLOOD COUNT 2.74 10^6/uL (4.00-5.40); WHITE BLOOD COUNT 12.4 10^3/uL (4.0-10.0)
[2021-11-28 09:12] LABS: CALCIUM LEVEL 8.2 MG/DL (8.5-10.1); CREATININE FOR GFR 1.96 MG/DL (0.55-1.30); GLOMERULAR FILTRATION RATE 28.3 (>51); PHOSPHORUS LEVEL 2.5 MG/DL (2.5-4.9)
[2021-11-28] MEDS: METOCLOPRAMIDE INJ 10MG/2ML VIAL (J2765 PER 1) IV PRN (09:37)
[2021-11-28 14:00] VITALS: BP 124/56
[2021-11-28 20:07] VITALS: BP 130/69
[2021-11-28] MEDS: LEVEMIR (INSULIN DETEMIR) 1 UNITS/0.01ML SC SCH (20:59)
[2021-11-29] MEDS: HEPARIN SOD (PORCINE) 5000UNITS/ML 1ML VIAL/SYRINGE SC SCH ×3 (06:19→21:57)
[2021-11-29 06:41] VITALS: BP 143/71
[2021-11-29] MEDS: INSULIN LISPRO (NovoLOG) PER UNIT SC SCH ×4 (07:30→21:00)
[2021-11-29] MEDS: LACTOBACILLUS ACIDOPHILUS CAP (BACID) PO SCH (09:43)
[2021-11-29] MEDS: OMEPRAZOLE 20MG CAP PO SCH (09:43)
[2021-11-29] MEDS: LINEZOLID 600MG TABLET (ZYVOX) PO SCH ×2 (09:43→21:56)
[2021-11-29] MEDS: levETIRAcetam 250MG TABLET (KEPPRA) PO SCH ×2 (09:43→21:56)
[2021-11-29] MEDS: ATORVASTATIN 20 MG TAB PO SCH (09:43)
[2021-11-29] MEDS: METOPROLOL TART 25 MG TABLET PO SCH ×2 (09:45→21:57)
[2021-11-29] MEDS: metroNIDAZOLE (FLAGYL) 500MG TABLET PO SCH ×3 (09:45→21:56)
[2021-11-29] MEDS: ISOSORBIDE MON. (IMDUR) 30MG XR TAB PO SCH (09:46)
[2021-11-29] MEDS: **hydrALAZINE HCL** 25 MG TAB PO SCH ×3 (09:47→21:58)
[2021-11-29 14:00] VITALS: BP 128/66
[2021-11-29] MEDS: LEVEMIR (INSULIN DETEMIR) 1 UNITS/0.01ML SC SCH (21:57)
[2021-11-29 22:00] VITALS: BP 121/63
[2021-11-30 05:13] VITALS: BP 125/65
[2021-11-30] MEDS: HEPARIN SOD (PORCINE) 5000UNITS/ML 1ML VIAL/SYRINGE SC SCH ×3 (05:45→21:08)
[2021-11-30 06:19] LABS: HEMATOCRIT 24.7 % (36.0-47.0); HEMOGLOBIN 7.9 g/dl (12.0-15.5); MEAN CORPUSCULAR HEMOGLOBIN 29.7 pg (27.0-33.0); MEAN CORPUSCULAR VOLUME 92.9 fl (80.0-96.0); PLATELET COUNT, AUTOMATED 273 10^3/uL (150-450); RED BLOOD COUNT 2.66 10^6/uL (4.00-5.40); WHITE BLOOD COUNT 11.4 10^3/uL (4.0-10.0)
[2021-11-30 06:47] LABS: CALCIUM LEVEL 8.2 MG/DL (8.5-10.1); CREATININE FOR GFR 1.97 MG/DL (0.55-1.30); GLOMERULAR FILTRATION RATE 28.1 (>51); MAGNESIUM LEVEL 2.1 MG/DL (1.8-2.4); PHOSPHORUS LEVEL 2.8 MG/DL (2.5-4.9)
[2021-11-30] MEDS: LINEZOLID 600MG TABLET (ZYVOX) PO SCH ×2 (08:25→20:18)
[2021-11-30] MEDS: levETIRAcetam 250MG TABLET (KEPPRA) PO SCH ×2 (08:25→20:18)
[2021-11-30] MEDS: OMEPRAZOLE 20MG CAP PO SCH (08:25)
[2021-11-30] MEDS: LACTOBACILLUS ACIDOPHILUS CAP (BACID) PO SCH (08:25)
[2021-11-30] MEDS: ATORVASTATIN 20 MG TAB PO SCH (08:25)
[2021-11-30] MEDS: metroNIDAZOLE (FLAGYL) 500MG TABLET PO SCH ×3 (08:25→20:18)
[2021-11-30] MEDS: METOPROLOL TART 25 MG TABLET PO SCH ×2 (08:26→20:19)
[2021-11-30] MEDS: ISOSORBIDE MON. (IMDUR) 30MG XR TAB PO SCH (08:26)
[2021-11-30] MEDS: **hydrALAZINE HCL** 25 MG TAB PO SCH ×3 (08:26→20:07)
[2021-11-30] MEDS: INSULIN LISPRO (NovoLOG) PER UNIT SC SCH ×4 (08:27→20:07)
[2021-11-30] MEDS: DARBEPOETIN 100 MCG/0.5 ML *NON-DIALYSIS* SYRINGE (J0881) SC SCH (11:20)
[2021-11-30 14:00] VITALS: BP 122/46
[2021-11-30 18:51] LABS: C REACTIVE PROTEIN QUANTITATIV 0.79 MG/DL (0.00-0.30)
[2021-11-30] MEDS: LEVEMIR (INSULIN DETEMIR) 1 UNITS/0.01ML SC SCH (20:19)
[2021-11-30 22:00] VITALS: BP 118/56
[2021-12-01 05:36] VITALS: BP 131/65
[2021-12-01 06:13] LABS: HEMATOCRIT 25.2 % (36.0-47.0); HEMOGLOBIN 7.9 g/dl (12.0-15.5); MEAN CORPUSCULAR HEMOGLOBIN 28.5 pg (27.0-33.0); MEAN CORPUSCULAR HGB CONC 31.3 g/dl (32.0-36.5); PLATELET COUNT, AUTOMATED 272 10^3/uL (150-450); RED BLOOD COUNT 2.77 10^6/uL (4.00-5.40); WHITE BLOOD COUNT 9.2 10^3/uL (4.0-10.0)
[2021-12-01] MEDS: HEPARIN SOD (PORCINE) 5000UNITS/ML 1ML VIAL/SYRINGE SC SCH ×3 (06:14→21:20)
[2021-12-01] MEDS: ONDANSETRON 4MG ORAL DISINTEGRATING TAB PO PRN (06:14)
[2021-12-01 07:18] LABS: CALCIUM LEVEL 8.4 MG/DL (8.5-10.1); CREATININE FOR GFR 1.86 MG/DL (0.55-1.30); GLOMERULAR FILTRATION RATE 30.1 (>51)
[2021-12-01] MEDS: INSULIN LISPRO (NovoLOG) PER UNIT SC SCH ×4 (07:29→20:30)
[2021-12-01] MEDS: ISOSORBIDE MON. (IMDUR) 30MG XR TAB PO SCH (08:33)
[2021-12-01] MEDS: metroNIDAZOLE (FLAGYL) 500MG TABLET PO SCH ×3 (08:33→20:34)
[2021-12-01] MEDS: OMEPRAZOLE 20MG CAP PO SCH (08:33)
[2021-12-01] MEDS: ATORVASTATIN 20 MG TAB PO SCH (08:33)
[2021-12-01] MEDS: LACTOBACILLUS ACIDOPHILUS CAP (BACID) PO SCH (08:34)
[2021-12-01] MEDS: levETIRAcetam 250MG TABLET (KEPPRA) PO SCH ×2 (08:34→20:34)
[2021-12-01] MEDS: LINEZOLID 600MG TABLET (ZYVOX) PO SCH ×2 (08:35→20:33)
[2021-12-01] MEDS: METOPROLOL TART 25 MG TABLET PO SCH ×2 (08:35→20:33)
[2021-12-01] MEDS: **hydrALAZINE HCL** 25 MG TAB PO SCH ×3 (08:35→20:34)
[2021-12-01 14:00] VITALS: BP 105/59
[2021-12-01] MEDS: LEVEMIR (INSULIN DETEMIR) 1 UNITS/0.01ML SC SCH (20:38)
[2021-12-01 22:00] VITALS: BP 133/68
[2021-12-02] MEDS: HEPARIN SOD (PORCINE) 5000UNITS/ML 1ML VIAL/SYRINGE SC SCH ×3 (05:31→20:32)
[2021-12-02 06:00] VITALS: BP 128/63
[2021-12-02 06:10] LABS: HEMATOCRIT 25.7 % (36.0-47.0); HEMOGLOBIN 8.2 g/dl (12.0-15.5); MEAN CORPUSCULAR HEMOGLOBIN 29.8 pg (27.0-33.0); MEAN CORPUSCULAR HGB CONC 31.9 g/dl (32.0-36.5); MEAN CORPUSCULAR VOLUME 93.5 fl (80.0-96.0); PLATELET COUNT, AUTOMATED 282 10^3/uL (150-450); RED BLOOD COUNT 2.75 10^6/uL (4.00-5.40); WHITE BLOOD COUNT 6.9 10^3/uL (4.0-10.0)
[2021-12-02 06:32] LABS: CALCIUM LEVEL 8.6 MG/DL (8.5-10.1); CREATININE FOR GFR 1.93 MG/DL (0.55-1.30); GLOMERULAR FILTRATION RATE 28.8 (>51); POTASSIUM SERUM 4.3 MEQ/L (3.5-5.1)
[2021-12-02] MEDS: LINEZOLID 600MG TABLET (ZYVOX) PO SCH ×2 (08:28→20:32)
[2021-12-02] MEDS: INSULIN LISPRO (NovoLOG) PER UNIT SC SCH ×4 (08:28→20:33)
[2021-12-02] MEDS: OMEPRAZOLE 20MG CAP PO SCH (08:28)
[2021-12-02] MEDS: LACTOBACILLUS ACIDOPHILUS CAP (BACID) PO SCH (08:29)
[2021-12-02] MEDS: metroNIDAZOLE (FLAGYL) 500MG TABLET PO SCH ×3 (08:29→21:14)
[2021-12-02] MEDS: levETIRAcetam 250MG TABLET (KEPPRA) PO SCH ×2 (08:29→20:32)
[2021-12-02] MEDS: **hydrALAZINE HCL** 25 MG TAB PO SCH ×3 (08:29→20:33)
[2021-12-02] MEDS: ATORVASTATIN 20 MG TAB PO SCH (08:29)
[2021-12-02] MEDS: ISOSORBIDE MON. (IMDUR) 30MG XR TAB PO SCH (08:30)
[2021-12-02] MEDS: METOPROLOL TART 25 MG TABLET PO SCH ×2 (08:30→20:33)
[2021-12-02 14:00] VITALS: BP 110/63
[2021-12-02 20:13] VITALS: BP 100/60
[2021-12-02 20:21] VITALS: BP 102/62
[2021-12-02] MEDS: LEVEMIR (INSULIN DETEMIR) 1 UNITS/0.01ML SC SCH (20:31)
[2021-12-02] MEDS: LIDOCAINE 5% (LIDODERM) PATCH TD SCH (21:00)
[2021-12-02 21:19] VITALS: BP 100/70
[2021-12-02] MEDS: ONDANSETRON 4MG ORAL DISINTEGRATING TAB PO PRN (23:56)
[2021-12-03 00:01] VITALS: BP 120/70
[2021-12-03] MEDS ORDERED: NORCO, ANEXSIA 5/325MG TABLET (HYDROcodone/ACETAMINOPHEN) PO PRN (00:15)
[2021-12-03] MEDS: ACETAMINOPHEN TAB 650MG DOSE (2X325MG) PO PRN (00:52)
[2021-12-03] MEDS: HEPARIN SOD (PORCINE) 5000UNITS/ML 1ML VIAL/SYRINGE SC SCH ×3 (06:05→20:07)
[2021-12-03 06:22] LABS: HEMATOCRIT 25.7 % (36.0-47.0); HEMOGLOBIN 7.9 g/dl (12.0-15.5); MEAN CORPUSCULAR HEMOGLOBIN 28.8 pg (27.0-33.0); MEAN CORPUSCULAR HGB CONC 30.7 g/dl (32.0-36.5); MEAN CORPUSCULAR VOLUME 93.8 fl (80.0-96.0); PLATELET COUNT, AUTOMATED 269 10^3/uL (150-450); RED BLOOD COUNT 2.74 10^6/uL (4.00-5.40); WHITE BLOOD COUNT 6.2 10^3/uL (4.0-10.0)
[2021-12-03 06:56] LABS: CALCIUM LEVEL 8.3 MG/DL (8.5-10.1); CREATININE FOR GFR 2.14 MG/DL (0.55-1.30); GLOMERULAR FILTRATION RATE 25.6 (>51); POTASSIUM SERUM 4.5 MEQ/L (3.5-5.1)
[2021-12-03] MEDS: INSULIN LISPRO (NovoLOG) PER UNIT SC SCH ×4 (07:30→20:39)
[2021-12-03 08:00] VITALS: BP 135/63
[2021-12-03] MEDS: levETIRAcetam 250MG TABLET (KEPPRA) PO SCH ×2 (09:58→20:06)
[2021-12-03] MEDS: ISOSORBIDE MON. (IMDUR) 30MG XR TAB PO SCH (09:58)
[2021-12-03] MEDS: ATORVASTATIN 20 MG TAB PO SCH (09:59)
[2021-12-03] MEDS: METOPROLOL TART 25 MG TABLET PO SCH ×2 (10:00→20:08)
[2021-12-03] MEDS: **hydrALAZINE HCL** 25 MG TAB PO SCH ×3 (10:00→20:07)
[2021-12-03] MEDS: LACTOBACILLUS ACIDOPHILUS CAP (BACID) PO SCH (10:00)
[2021-12-03] MEDS: metroNIDAZOLE (FLAGYL) 500MG TABLET PO SCH ×3 (10:01→20:42)
[2021-12-03] MEDS: LINEZOLID 600MG TABLET (ZYVOX) PO SCH ×2 (10:01→20:07)
[2021-12-03] MEDS: OMEPRAZOLE 20MG CAP PO SCH (10:01)
[2021-12-03] MEDS: **NOTE PATIENT COMMENT** MISC XX SCH (10:02)
[2021-12-03 14:00] VITALS: BP 118/64
[2021-12-03] MEDS: LEVEMIR (INSULIN DETEMIR) 1 UNITS/0.01ML SC SCH (20:08)
[2021-12-03] MEDS: LIDOCAINE 5% (LIDODERM) PATCH TD SCH (20:09)
[2021-12-03 22:00] VITALS: BP 142/76
[2021-12-03] MEDS: ONDANSETRON 4MG ORAL DISINTEGRATING TAB PO PRN (23:11)
[2021-12-04] MEDS: HEPARIN SOD (PORCINE) 5000UNITS/ML 1ML VIAL/SYRINGE SC SCH ×3 (05:44→20:27)
[2021-12-04 05:47] VITALS: BP 124/70
[2021-12-04] MEDS: INSULIN LISPRO (NovoLOG) PER UNIT SC SCH ×4 (07:30→21:00)
[2021-12-04 07:34] LABS: HEMATOCRIT 25.7 % (36.0-47.0); MEAN CORPUSCULAR HEMOGLOBIN 29.3 pg (27.0-33.0); MEAN CORPUSCULAR HGB CONC 31.1 g/dl (32.0-36.5); MEAN CORPUSCULAR VOLUME 94.1 fl (80.0-96.0); PLATELET COUNT, AUTOMATED 273 10^3/uL (150-450); RED BLOOD COUNT 2.73 10^6/uL (4.00-5.40); WHITE BLOOD COUNT 7.1 10^3/uL (4.0-10.0)
[2021-12-04 08:11] LABS: CALCIUM LEVEL 8.7 MG/DL (8.5-10.1); CREATININE FOR GFR 2.04 MG/DL (0.55-1.30); POTASSIUM SERUM 4.4 MEQ/L (3.5-5.1)
[2021-12-04] MEDS: OMEPRAZOLE 20MG CAP PO SCH (08:43)
[2021-12-04] MEDS: ISOSORBIDE MON. (IMDUR) 30MG XR TAB PO SCH (08:43)
[2021-12-04] MEDS: ATORVASTATIN 20 MG TAB PO SCH (08:43)
[2021-12-04] MEDS: LACTOBACILLUS ACIDOPHILUS CAP (BACID) PO SCH (08:43)
[2021-12-04] MEDS: metroNIDAZOLE (FLAGYL) 500MG TABLET PO SCH ×3 (08:43→20:27)
[2021-12-04] MEDS: LINEZOLID 600MG TABLET (ZYVOX) PO SCH ×2 (08:44→20:27)
[2021-12-04] MEDS: **NOTE PATIENT COMMENT** MISC XX SCH ×2 (08:44→20:28)
[2021-12-04] MEDS: levETIRAcetam 250MG TABLET (KEPPRA) PO SCH ×2 (08:44→20:26)
[2021-12-04] MEDS: **hydrALAZINE HCL** 25 MG TAB PO SCH ×3 (08:44→21:00)
[2021-12-04] MEDS: METOPROLOL TART 25 MG TABLET PO SCH ×2 (08:44→20:27)
[2021-12-04] MEDS: ACETAMINOPHEN TAB 650MG DOSE (2X325MG) PO PRN (10:51)
[2021-12-04] MEDS: LIDOCAINE 5% (LIDODERM) PATCH TD SCH (11:20)
[2021-12-04 14:00] VITALS: BP 130/72
[2021-12-04] MEDS: ONDANSETRON 4MG ORAL DISINTEGRATING TAB PO PRN (17:49)
[2021-12-04] MEDS: LEVEMIR (INSULIN DETEMIR) 1 UNITS/0.01ML SC SCH (20:27)
[2021-12-04 22:00] VITALS: BP 118/62
[2021-12-05 06:00] VITALS: BP 147/77
[2021-12-05 06:31] LABS: HEMATOCRIT 25.7 % (36.0-47.0); MEAN CORPUSCULAR HEMOGLOBIN 29.5 pg (27.0-33.0); MEAN CORPUSCULAR HGB CONC 31.1 g/dl (32.0-36.5); MEAN CORPUSCULAR VOLUME 94.8 fl (80.0-96.0); PLATELET COUNT, AUTOMATED 247 10^3/uL (150-450); RED BLOOD COUNT 2.71 10^6/uL (4.00-5.40); WHITE BLOOD COUNT 5.6 10^3/uL (4.0-10.0)
[2021-12-05] MEDS: HEPARIN SOD (PORCINE) 5000UNITS/ML 1ML VIAL/SYRINGE SC SCH ×3 (06:35→21:08)
[2021-12-05 07:00] LABS: CALCIUM LEVEL 8.3 MG/DL (8.5-10.1); CREATININE FOR GFR 1.99 MG/DL (0.55-1.30); GLOMERULAR FILTRATION RATE 27.8 (>51); POTASSIUM SERUM 4.5 MEQ/L (3.5-5.1)
[2021-12-05] MEDS: INSULIN LISPRO (NovoLOG) PER UNIT SC SCH ×4 (07:30→21:00)
[2021-12-05] MEDS: ATORVASTATIN 20 MG TAB PO SCH (10:08)
[2021-12-05] MEDS: OMEPRAZOLE 20MG CAP PO SCH (10:09)
[2021-12-05] MEDS: **hydrALAZINE HCL** 25 MG TAB PO SCH ×3 (10:09→21:09)
[2021-12-05] MEDS: levETIRAcetam 250MG TABLET (KEPPRA) PO SCH ×2 (10:09→21:09)
[2021-12-05] MEDS: ISOSORBIDE MON. (IMDUR) 30MG XR TAB PO SCH (10:09)
[2021-12-05] MEDS: LINEZOLID 600MG TABLET (ZYVOX) PO SCH ×2 (10:09→21:08)
[2021-12-05] MEDS: LACTOBACILLUS ACIDOPHILUS CAP (BACID) PO SCH (10:09)
[2021-12-05] MEDS: LIDOCAINE 5% (LIDODERM) PATCH TD SCH (10:10)
[2021-12-05] MEDS: METOPROLOL TART 25 MG TABLET PO SCH ×2 (10:10→21:08)
[2021-12-05] MEDS: metroNIDAZOLE (FLAGYL) 500MG TABLET PO SCH ×3 (10:24→21:15)
[2021-12-05] MEDS: LEVEMIR (INSULIN DETEMIR) 1 UNITS/0.01ML SC SCH (21:09)
[2021-12-05] MEDS: **NOTE PATIENT COMMENT** MISC XX SCH (21:09)
[2021-12-05 22:00] VITALS: BP 142/81
[2021-12-06] MEDS: HEPARIN SOD (PORCINE) 5000UNITS/ML 1ML VIAL/SYRINGE SC SCH ×3 (05:35→20:33)
[2021-12-06 05:36] VITALS: BP 143/77
[2021-12-06] MEDS: INSULIN LISPRO (NovoLOG) PER UNIT SC SCH ×4 (07:25→20:34)
[2021-12-06] MEDS: OMEPRAZOLE 20MG CAP PO SCH (09:05)
[2021-12-06] MEDS: ATORVASTATIN 20 MG TAB PO SCH (09:05)
[2021-12-06] MEDS: metroNIDAZOLE (FLAGYL) 500MG TABLET PO SCH ×3 (09:05→20:33)
[2021-12-06] MEDS: levETIRAcetam 250MG TABLET (KEPPRA) PO SCH ×2 (09:05→20:33)
[2021-12-06] MEDS: LINEZOLID 600MG TABLET (ZYVOX) PO SCH ×2 (09:05→20:34)
[2021-12-06] MEDS: LACTOBACILLUS ACIDOPHILUS CAP (BACID) PO SCH (09:05)
[2021-12-06] MEDS: LIDOCAINE 5% (LIDODERM) PATCH TD SCH (09:06)
[2021-12-06] MEDS: ISOSORBIDE MON. (IMDUR) 30MG XR TAB PO SCH (09:06)
[2021-12-06] MEDS: **hydrALAZINE HCL** 25 MG TAB PO SCH ×3 (09:06→20:33)
[2021-12-06] MEDS: METOPROLOL TART 25 MG TABLET PO SCH ×2 (09:06→20:34)
[2021-12-06] MEDS: LEVEMIR (INSULIN DETEMIR) 1 UNITS/0.01ML SC SCH (20:32)
[2021-12-06] MEDS: **NOTE PATIENT COMMENT** MISC XX SCH (20:34)
[2021-12-07 05:23] VITALS: BP 115/90
[2021-12-07] MEDS: HEPARIN SOD (PORCINE) 5000UNITS/ML 1ML VIAL/SYRINGE SC SCH ×2 (05:23→13:26)
[2021-12-07] MEDS: INSULIN LISPRO (NovoLOG) PER UNIT SC SCH ×2 (07:30→12:00)
[2021-12-07] MEDS: OMEPRAZOLE 20MG CAP PO SCH (09:43)
[2021-12-07] MEDS: LACTOBACILLUS ACIDOPHILUS CAP (BACID) PO SCH (09:43)
[2021-12-07] MEDS: LIDOCAINE 5% (LIDODERM) PATCH TD SCH (09:43)
[2021-12-07 09:44] VITALS: BP 130/70
[2021-12-07] MEDS: LINEZOLID 600MG TABLET (ZYVOX) PO SCH (09:44)
[2021-12-07] MEDS: metroNIDAZOLE (FLAGYL) 500MG TABLET PO SCH ×2 (09:44→15:54)
[2021-12-07] MEDS: ISOSORBIDE MON. (IMDUR) 30MG XR TAB PO SCH (09:44)
[2021-12-07] MEDS: ATORVASTATIN 20 MG TAB PO SCH (09:44)
[2021-12-07] MEDS: **hydrALAZINE HCL** 25 MG TAB PO SCH (09:45)
[2021-12-07] MEDS: levETIRAcetam 250MG TABLET (KEPPRA) PO SCH (09:45)
[2021-12-07] MEDS: METOPROLOL TART 25 MG TABLET PO SCH (09:45)
[2021-12-07] MEDS: DARBEPOETIN 100 MCG/0.5 ML *NON-DIALYSIS* SYRINGE (J0881) SC SCH (10:37)
[2021-12-07] MEDS: ACETAMINOPHEN TAB 650MG DOSE (2X325MG) PO PRN (10:38)
[2021-12-07] MEDS ORDERED: ACET1TAB55 PO (12:52)
[2021-12-07] MEDS ORDERED: DARB10SYRN SC (12:52)
[2021-12-07] MEDS ORDERED: RISATAB3 PO (12:52)
[2021-12-07] MEDS ORDERED: METO1TAB87 PO (12:52)
[2021-12-07] MEDS ORDERED: KEPP1TAB PO (12:52)
[2021-12-07] MEDS ORDERED: HYDR25TA PO (12:52)
[2021-12-07] MEDS ORDERED: METR-265 PO (12:52)
[2021-12-07] MEDS ORDERED: OMEP-173 PO (12:52)
[2021-12-07] MEDS ORDERED: LIDO5TD TD (12:52)
[2021-12-07] MEDS ORDERED: LANTINJ4 SC (12:52)
[2021-12-07] MEDS ORDERED: LINE1TAB6 PO (12:52)
[2021-12-07 13:45] LABS: CALCIUM LEVEL 8.5 MG/DL (8.5-10.1); CREATININE FOR GFR 1.98 MG/DL (0.55-1.30); POTASSIUM SERUM 4.7 MEQ/L (3.5-5.1)
== END 2021-12-07 16:06 | DRG 314 ==
LOC: M ED INP 22:56 → EEVIPCON 22:56 → ENRESERV 11-15 13:08 → M MS5PR 11-15 14:30 → M ICU 11-19 01:12 → M PCU 11-20 18:01 → M MSPAV 11-22 16:47
PROVIDERS: ADMIT Internal Medicine; ATTEND Internal Medicine
PROC: 0QBR0ZZ Excision of Left Toe Phalanx, Open Approach (ICD-10-PCS; 2021-11-16)
PROC: 0Y6U0Z0 Detachment at Left 3rd Toe, Complete, Open Approach (ICD-10-PCS; 2021-11-16)
PROC: 0Y6S0Z0 Detachment at Left 2nd Toe, Complete, Open Approach (ICD-10-PCS; principal; 2021-11-25 11:55)
DX: E11.628 Type 2 diabetes mellitus with other skin complications (principal); R65.21 Severe sepsis with septic shock; A41.9 Sepsis, unspecified organism; N18.4 Chronic kidney disease, stage 4 (severe); N17.9 Acute kidney failure, unspecified; M86.172 Other acute osteomyelitis, left ankle and foot; E87.2 Acidosis; L03.116 Cellulitis of left lower limb; E11.22 Type 2 diabetes mellitus with diabetic chronic kidney disease; I27.20 Pulmonary hypertension, unspecified; R56.9 Unspecified convulsions; E11.43 Type 2 diabetes mellitus with diabetic autonomic (poly)neuropathy; L97.529 Non-pressure chronic ulcer of other part of left foot with unspecified severity; E83.39 Other disorders of phosphorus metabolism; E78.00 Pure hypercholesterolemia, unspecified; E78.5 Hyperlipidemia, unspecified; E87.6 Hypokalemia; I12.9 Hypertensive chronic kidney disease with stage 1 through stage 4 chronic kidney disease, or unspecified chronic kidney disease; I25.10 Atherosclerotic heart disease of native coronary artery without angina pectoris; L02.612 Cutaneous abscess of left foot; Z79.4 Long term (current) use of insulin; B95.62 Methicillin resistant Staphylococcus aureus infection as the cause of diseases classified elsewhere; B95.5 Unspecified streptococcus as the cause of diseases classified elsewhere; Z79.899 Other long term (current) drug therapy; I25.2 Old myocardial infarction; D63.1 Anemia in chronic kidney disease; E11.621 Type 2 diabetes mellitus with foot ulcer; I95.2 Hypotension due to drugs

== ENCOUNTER → 2022-01-19 | Outpatient (REF) | payer OTHER, MEDICAID ==
[~2022-01-19] MED LIST changes: +ACET1TAB55 PO; +ATOR80TA59 PO; +DARB10SYRN SC; +DOXY100C3 PO; +HYDR100T PO; +HYDR25TA PO; +INSU100I9 SC; +ISOS1TAB35 PO; +KEPP1TAB PO; +LANTINJ4 SC; +LIDO5TD TD; +LINE1TAB6 PO; +METO1TAB87 PO; +METR-265 PO; +OMEP-173 PO; +RISATAB3 PO; +SPIR-10 PO; +TORS20TA2 PO
== END ==
LOC: M LAB REF 16:22
PROVIDERS: ATTEND Podiatrist Foot & Ankle Surgery
DX: M86.172 Other acute osteomyelitis, left ankle and foot (principal)

== ENCOUNTER 2022-01-29 13:26 | Inpatient (IN) | payer OTHER ==
[~2022-01-29] VITALS: Ht 149.9 cm; Wt 80.4 kg
[2022-01-29] MEDS: PIPERACILLIN/TAZOBACTAM SOD 3.375 GM in D5W MINI-BAG PLUS 50 ML IV SCH ×3 (08:00→20:00)
[2022-01-29] MEDS ORDERED: NS 1,000 ML IV SCH ×2 (19:05→23:00)
[2022-01-29] MEDS ORDERED: PIPERACILLIN/TAZOBACTAM SOD 3.375 GM in D5W MINI-BAG PLUS 50 ML IV ONE (19:05)
[2022-01-29] MEDS ORDERED: VANCOMYCIN HCL 1,500 MG in NS 250 ML IV ONE (19:35)
[2022-01-29] MEDS ORDERED: VANCOMYCIN HCL 750 MG, VIAL MATE ADAPTER 1 EACH in D5W 250 ML IV ONE ×2 (20:00→21:00)
[2022-01-29 20:01] LABS: BASO # 0.1 10^3/uL (0.0-0.2); BASO % 1.1 % (0.0-1.0); EOS # 0.2 10^3/uL (0.0-0.5); EOS % 1.5 % (0.0-3.0); HEMOGLOBIN 8.4 g/dl (12.0-15.5); LYMPH # 1.4 10^3/uL (1.5-5.0); LYMPH % 13.3 % (24.0-44.0); MEAN CORPUSCULAR HEMOGLOBIN 29.3 pg (27.0-33.0); MEAN CORPUSCULAR HGB CONC 31.1 g/dl (32.0-36.5); MEAN CORPUSCULAR VOLUME 94.1 fl (80.0-96.0); MONO # 0.7 10^3/uL (0.0-0.8); MONO % 6.9 % (2.0-8.0); NEUTROPHILS # 8.1 10^3/uL (1.5-8.5); PLATELET COUNT, AUTOMATED 428 10^3/uL (150-450); RED BLOOD COUNT 2.87 10^6/uL (4.00-5.40); WHITE BLOOD COUNT 10.5 10^3/uL (4.0-10.0)
[2022-01-29 20:14] LABS: C REACTIVE PROTEIN QUANTITATIV 0.51 MG/DL (0.00-0.30); CALCIUM LEVEL 9.2 MG/DL (8.5-10.1); CREATININE FOR GFR 1.67 MG/DL (0.55-1.30); POTASSIUM SERUM 3.9 MEQ/L (3.5-5.1)
[2022-01-29 20:29] LABS: ERYTHROCYTE SEDIMENTATION RATE 73 mm/hr (0-30)
[2022-01-29] MEDS ORDERED: KEPP250T5 PO (20:52)
[2022-01-29] MEDS ORDERED: HYDR-3910 PO (20:52)
[2022-01-29] MEDS ORDERED: METO10TA2 PO (20:52)
[2022-01-29] MEDS ORDERED: LANTINJ4 SC (20:52)
[2022-01-29] MEDS ORDERED: METO25TA4 PO (20:52)
[2022-01-29] MEDS ORDERED: med rec comment (20:53)
[2022-01-29] MEDS ORDERED: HOME MED LIST COMPLETE! XX SCH (20:55)
[2022-01-29] MEDS ORDERED: PIPERACILLIN/TAZOBACTAM SOD 3.375 GM in D5W MINI-BAG PLUS 50 ML IV SCH (23:00)
[2022-01-29] MEDS ORDERED: GLUCOSE 4GM CHEW TABLET PO PRN (23:00)
[2022-01-29] MEDS ORDERED: HYDROMORPHONE HCL 0.5 MG/ 0.5 ML SYRINGE (J1170 PER 1) IV PRN (23:00)
[2022-01-29] MEDS ORDERED: DEXTROSE 50% 50 ML SYRINGE IV PRN (23:00)
[2022-01-29] MEDS ORDERED: GLUCAGON INJ 1MG VIAL SC PRN (23:00)
[2022-01-30] MEDS ORDERED: UNRESOLVED CLARIFICATION ENTRY XX SCH (00:01)
[2022-01-30] MEDS: levETIRAcetam 250MG TABLET (KEPPRA) PO SCH ×3 (00:55→20:40)
[2022-01-30] MEDS: LEVEMIR (INSULIN DETEMIR) 1 UNITS/0.01ML SC SCH ×2 (00:55→01:13)
[2022-01-30] MEDS: METOPROLOL TART 25 MG TABLET PO SCH ×3 (00:56→20:40)
[2022-01-30] MEDS: INSULIN LISPRO (NovoLOG) PER UNIT SC SCH ×5 (00:58→20:40)
[2022-01-30] MEDS: PIPERACILLIN/TAZOBACTAM SOD 3.375 GM in D5W MINI-BAG PLUS 50 ML IV SCH ×4 (02:18→20:40)
[2022-01-30 08:22] LABS: BASO # 0.1 10^3/uL (0.0-0.2); EOS # 0.3 10^3/uL (0.0-0.5); EOS % 4.1 % (0.0-3.0); HEMATOCRIT 23.2 % (36.0-47.0); HEMOGLOBIN 7.3 g/dl (12.0-15.5); LYMPH # 1.6 10^3/uL (1.5-5.0); LYMPH % 18.6 % (24.0-44.0); MEAN CORPUSCULAR HEMOGLOBIN 29.9 pg (27.0-33.0); MEAN CORPUSCULAR HGB CONC 31.5 g/dl (32.0-36.5); MEAN CORPUSCULAR VOLUME 95.1 fl (80.0-96.0); MONO # 0.7 10^3/uL (0.0-0.8); MONO % 8.2 % (2.0-8.0); NEUTROPHILS # 5.7 10^3/uL (1.5-8.5); NEUTROPHILS % 67.7 % (36.0-66.0); PLATELET COUNT, AUTOMATED 373 10^3/uL (150-450); RED BLOOD COUNT 2.44 10^6/uL (4.00-5.40); WHITE BLOOD COUNT 8.4 10^3/uL (4.0-10.0)
[2022-01-30 08:59] LABS: CALCIUM LEVEL 8.6 MG/DL (8.5-10.1); CREATININE FOR GFR 1.58 MG/DL (0.55-1.30); GLOMERULAR FILTRATION RATE 36.3 (>51); POTASSIUM SERUM 3.5 MEQ/L (3.5-5.1); VANCOMYCIN RANDOM 13.4 UG/ML
[2022-01-30] MEDS ORDERED: **hydrALAZINE HCL** 25 MG TAB PO SCH (09:00)
[2022-01-30] MEDS: ATORVASTATIN 20 MG TAB PO SCH (09:13)
[2022-01-30] MEDS: ISOSORBIDE MON. (IMDUR) 30MG XR TAB PO SCH (09:16)
[2022-01-30] MEDS: FUROSEMIDE 40MG/4ML VIAL (J1940) IV SCH ×2 (10:44→18:15)
[2022-01-30] MEDS ORDERED: VANCOMYCIN HCL 1,000 MG, VIAL MATE ADAPTER 1 EACH in NS 250 ML IV SCH (12:00)
[2022-01-30 12:11] LABS: ALBUMIN 2.1 GM/DL (3.2-5.2); BILIRUBIN,DIRECT 0.2 MG/DL (0.0-0.2); BILIRUBIN,TOTAL 0.4 MG/DL (0.2-1.0); TOTAL PROTEIN 5.7 GM/DL (6.4-8.2)
[2022-01-30 14:00] VITALS: BP 137/71
[2022-01-30 15:20] VITALS: BP 140/69
[2022-01-30 17:00] VITALS: BP 151/79
[2022-01-30 17:45] VITALS: BP 154/79
[2022-01-30] MEDS: ACETAMINOPHEN TAB 650MG DOSE (2X325MG) PO PRN (20:41)
[2022-01-31] VITALS (16 sets, daily range): BP systolic 158–188; BP diastolic 78–96
[2022-01-31] MEDS: FUROSEMIDE 40MG/4ML VIAL (J1940) IV SCH ×3 (02:30→18:30)
[2022-01-31] MEDS: PIPERACILLIN/TAZOBACTAM SOD 3.375 GM in D5W MINI-BAG PLUS 50 ML IV SCH ×4 (02:30→18:30)
[2022-01-31 06:48] LABS: BASO # 0.1 10^3/uL (0.0-0.2); BASO % 0.8 % (0.0-1.0); EOS # 0.3 10^3/uL (0.0-0.5); EOS % 2.9 % (0.0-3.0); HEMATOCRIT 22.5 % (36.0-47.0); LYMPH # 1.5 10^3/uL (1.5-5.0); MEAN CORPUSCULAR HEMOGLOBIN 28.8 pg (27.0-33.0); MEAN CORPUSCULAR HGB CONC 30.7 g/dl (32.0-36.5); MEAN CORPUSCULAR VOLUME 93.8 fl (80.0-96.0); MONO # 0.8 10^3/uL (0.0-0.8); MONO % 7.5 % (2.0-8.0); NEUTROPHILS # 7.9 10^3/uL (1.5-8.5); NEUTROPHILS % 74.4 % (36.0-66.0); PLATELET COUNT, AUTOMATED 341 10^3/uL (150-450); WHITE BLOOD COUNT 10.6 10^3/uL (4.0-10.0)
[2022-01-31 06:51] LABS: HEMOGLOBIN 6.9 g/dl (12.0-15.5)
[2022-01-31 07:25] LABS: CALCIUM LEVEL 8.6 MG/DL (8.5-10.1); CREATININE FOR GFR 1.71 MG/DL (0.55-1.30); GLOMERULAR FILTRATION RATE 33.1 (>51); POTASSIUM SERUM 3.4 MEQ/L (3.5-5.1)
[2022-01-31] MEDS: INSULIN LISPRO (NovoLOG) PER UNIT SC SCH ×4 (07:30→20:22)
[2022-01-31] MEDS ORDERED: MIDAZOLAM INJ 2MG/2ML VIAL (J2250 PER 1MG) As Ordered ONE (07:45)
[2022-01-31] MEDS ORDERED: fentaNYL 100 MCG/2 ML INJECTION As Ordered ONE (07:45)
[2022-01-31] MEDS ORDERED: propofoL 200 MG/20 ML VIAL As Ordered ONE (07:45)
[2022-01-31] MEDS ORDERED: LIDOCAINE 2% 100MG/5ML SDV (FOR ANES.) As Ordered ONE (07:45)
[2022-01-31] MEDS ORDERED: BUPIVACAINE HCL 0.5% 30ML VIAL As Ordered ONE (07:50)
[2022-01-31] MEDS ORDERED: LIDOCAINE 1% SDV 30ML VIAL As Ordered ONE (07:50)
[2022-01-31 08:12] LABS: PERCENT SATURATION 11.9 % (13.2-45.0)
[2022-01-31] MEDS: levETIRAcetam 250MG TABLET (KEPPRA) PO SCH ×2 (10:30→20:22)
[2022-01-31] MEDS: ISOSORBIDE MON. (IMDUR) 30MG XR TAB PO SCH (10:31)
[2022-01-31] MEDS: ATORVASTATIN 20 MG TAB PO SCH (10:31)
[2022-01-31] MEDS: METOPROLOL TART 25 MG TABLET PO SCH ×2 (10:32→20:22)
[2022-01-31] MEDS ORDERED: VANCOMYCIN HCL 750 MG, VIAL MATE ADAPTER 1 EACH in D5W 250 ML IV SCH (14:00)
[2022-01-31] MEDS ORDERED: oxyCODONE 5MG TAB PO PRN (17:50)
[2022-01-31] MEDS ORDERED: ONDANSETRON 4MG 2ML VIAL IV PRN (17:50)
[2022-01-31] MEDS: LEVEMIR (INSULIN DETEMIR) 1 UNITS/0.01ML SC SCH (20:23)
[2022-01-31] MEDS: ACETAMINOPHEN TAB 650MG DOSE (2X325MG) PO PRN (20:23)
[2022-02-01] VITALS (14 sets, daily range): BP systolic 142–186; BP diastolic 60–98
[2022-02-01] MEDS: PIPERACILLIN/TAZOBACTAM SOD 3.375 GM in D5W MINI-BAG PLUS 50 ML IV SCH ×4 (01:23→20:17)
[2022-02-01] MEDS: FUROSEMIDE 40MG/4ML VIAL (J1940) IV SCH ×4 (01:24→20:17)
[2022-02-01] MEDS: **hydrALAZINE HCL** 25 MG TAB PO SCH ×4 (02:29→20:18)
[2022-02-01] MEDS ORDERED: **hydrALAZINE HCL** 25 MG TAB PO ONE (05:00)
[2022-02-01] MEDS: ISOSORBIDE MON. (IMDUR) 30MG XR TAB PO SCH (06:43)
[2022-02-01 07:12] LABS: BASO # 0.1 10^3/uL (0.0-0.2); BASO % 0.9 % (0.0-1.0); EOS # 0.4 10^3/uL (0.0-0.5); EOS % 3.9 % (0.0-3.0); HEMATOCRIT 28.3 % (36.0-47.0); LYMPH # 1.6 10^3/uL (1.5-5.0); LYMPH % 15.4 % (24.0-44.0); MEAN CORPUSCULAR HEMOGLOBIN 30.2 pg (27.0-33.0); MEAN CORPUSCULAR HGB CONC 32.9 g/dl (32.0-36.5); MEAN CORPUSCULAR VOLUME 91.9 fl (80.0-96.0); MONO # 1.2 10^3/uL (0.0-0.8); MONO % 11.6 % (2.0-8.0); NEUTROPHILS # 7.1 10^3/uL (1.5-8.5); NEUTROPHILS % 67.9 % (36.0-66.0); PLATELET COUNT, AUTOMATED 308 10^3/uL (150-450); RED BLOOD COUNT 3.08 10^6/uL (4.00-5.40); WHITE BLOOD COUNT 10.5 10^3/uL (4.0-10.0)
[2022-02-01 07:34] LABS: HEMOGLOBIN 9.3 g/dl (12.0-15.5)
[2022-02-01 07:49] LABS: CALCIUM LEVEL 8.7 MG/DL (8.5-10.1); CREATININE FOR GFR 1.88 MG/DL (0.55-1.30); GLOMERULAR FILTRATION RATE 29.7 (>51); POTASSIUM SERUM 3.6 MEQ/L (3.5-5.1)
[2022-02-01] MEDS: INSULIN LISPRO (NovoLOG) PER UNIT SC SCH ×4 (08:24→20:18)
[2022-02-01] MEDS: ATORVASTATIN 20 MG TAB PO SCH (08:25)
[2022-02-01] MEDS: levETIRAcetam 250MG TABLET (KEPPRA) PO SCH ×2 (08:25→20:18)
[2022-02-01] MEDS: METOPROLOL TART 25 MG TABLET PO SCH ×2 (08:26→20:18)
[2022-02-01] MEDS: POTASSIUM CHLORIDE 10MEQ SR TABLET PO SCH ×2 (17:01→20:18)
[2022-02-01] MEDS: LEVEMIR (INSULIN DETEMIR) 1 UNITS/0.01ML SC SCH (20:19)
[2022-02-01] MEDS: ACETAMINOPHEN TAB 650MG DOSE (2X325MG) PO PRN (20:19)
[2022-02-02 01:30] VITALS: BP 162/88
[2022-02-02] MEDS: FUROSEMIDE 40MG/4ML VIAL (J1940) IV SCH ×4 (01:32→21:52)
[2022-02-02] MEDS: PIPERACILLIN/TAZOBACTAM SOD 3.375 GM in D5W MINI-BAG PLUS 50 ML IV SCH ×4 (01:32→21:52)
[2022-02-02 06:00] VITALS: BP 158/84
[2022-02-02 06:33] LABS: BASO # 0.1 10^3/uL (0.0-0.2); BASO % 0.9 % (0.0-1.0); EOS # 0.4 10^3/uL (0.0-0.5); EOS % 3.6 % (0.0-3.0); HEMOGLOBIN 9.2 g/dl (12.0-15.5); LYMPH # 1.6 10^3/uL (1.5-5.0); LYMPH % 14.5 % (24.0-44.0); MEAN CORPUSCULAR HGB CONC 32.9 g/dl (32.0-36.5); MEAN CORPUSCULAR VOLUME 91.2 fl (80.0-96.0); MONO % 9.1 % (2.0-8.0); NEUTROPHILS # 7.7 10^3/uL (1.5-8.5); NEUTROPHILS % 71.5 % (36.0-66.0); PLATELET COUNT, AUTOMATED 297 10^3/uL (150-450); RED BLOOD COUNT 3.07 10^6/uL (4.00-5.40); WHITE BLOOD COUNT 10.7 10^3/uL (4.0-10.0)
[2022-02-02 07:08] LABS: CALCIUM LEVEL 8.4 MG/DL (8.5-10.1); CREATININE FOR GFR 2.1 MG/DL (0.55-1.30); GLOMERULAR FILTRATION RATE 26.1 (>51); POTASSIUM SERUM 3.5 MEQ/L (3.5-5.1)
[2022-02-02] MEDS: ATORVASTATIN 20 MG TAB PO SCH (08:25)
[2022-02-02] MEDS: INSULIN LISPRO (NovoLOG) PER UNIT SC SCH ×4 (08:25→21:00)
[2022-02-02] MEDS: levETIRAcetam 250MG TABLET (KEPPRA) PO SCH ×2 (08:26→21:52)
[2022-02-02] MEDS: ISOSORBIDE MON. (IMDUR) 30MG XR TAB PO SCH (08:26)
[2022-02-02] MEDS: METOPROLOL TART 25 MG TABLET PO SCH ×2 (08:26→21:53)
[2022-02-02] MEDS: POTASSIUM CHLORIDE 10MEQ SR TABLET PO SCH ×3 (08:26→21:52)
[2022-02-02] MEDS: **hydrALAZINE HCL** 25 MG TAB PO SCH ×3 (08:27→21:53)
[2022-02-02 14:00] VITALS: BP 130/66
[2022-02-02 14:08] LABS: FOLATE 6.5 ng/mL (>3.0)
[2022-02-02 20:00] VITALS: BP 161/84
[2022-02-02 21:05] VITALS: BP 162/82
[2022-02-02] MEDS: LEVEMIR (INSULIN DETEMIR) 1 UNITS/0.01ML SC SCH (21:53)
[2022-02-02] MEDS: ACETAMINOPHEN TAB 650MG DOSE (2X325MG) PO PRN (21:54)
[2022-02-03] MEDS: PIPERACILLIN/TAZOBACTAM SOD 3.375 GM in D5W MINI-BAG PLUS 50 ML IV SCH ×4 (02:34→19:55)
[2022-02-03] MEDS: FUROSEMIDE 40MG/4ML VIAL (J1940) IV SCH ×4 (02:34→19:55)
[2022-02-03 02:35] VITALS: BP 152/70
[2022-02-03 06:00] VITALS: BP 138/70
[2022-02-03 07:43] LABS: BASO # 0.1 10^3/uL (0.0-0.2); BASO % 0.9 % (0.0-1.0); EOS # 0.5 10^3/uL (0.0-0.5); EOS % 4.9 % (0.0-3.0); HEMATOCRIT 29.5 % (36.0-47.0); HEMOGLOBIN 9.3 g/dl (12.0-15.5); LYMPH # 1.5 10^3/uL (1.5-5.0); LYMPH % 13.7 % (24.0-44.0); MEAN CORPUSCULAR HEMOGLOBIN 29.2 pg (27.0-33.0); MEAN CORPUSCULAR HGB CONC 31.5 g/dl (32.0-36.5); MEAN CORPUSCULAR VOLUME 92.8 fl (80.0-96.0); MONO # 0.9 10^3/uL (0.0-0.8); NEUTROPHILS # 7.9 10^3/uL (1.5-8.5); NEUTROPHILS % 72.2 % (36.0-66.0); PLATELET COUNT, AUTOMATED 285 10^3/uL (150-450); RED BLOOD COUNT 3.18 10^6/uL (4.00-5.40); WHITE BLOOD COUNT 10.9 10^3/uL (4.0-10.0)
[2022-02-03 08:08] LABS: CALCIUM LEVEL 8.4 MG/DL (8.5-10.1); CREATININE FOR GFR 2.21 MG/DL (0.55-1.30); GLOMERULAR FILTRATION RATE 24.6 (>51); POTASSIUM SERUM 3.6 MEQ/L (3.5-5.1)
[2022-02-03] MEDS: INSULIN LISPRO (NovoLOG) PER UNIT SC SCH ×4 (09:19→20:45)
[2022-02-03] MEDS: levETIRAcetam 250MG TABLET (KEPPRA) PO SCH ×2 (09:20→21:59)
[2022-02-03] MEDS: ATORVASTATIN 20 MG TAB PO SCH (09:20)
[2022-02-03] MEDS: POTASSIUM CHLORIDE 10MEQ SR TABLET PO SCH ×3 (09:21→21:58)
[2022-02-03] MEDS: HEPARIN SOD (PORCINE) 5000UNITS/ML 1ML VIAL/SYRINGE SQ SCH ×2 (09:21→21:59)
[2022-02-03] MEDS: METOPROLOL TART 25 MG TABLET PO SCH ×2 (09:22→21:59)
[2022-02-03] MEDS: ISOSORBIDE MON. (IMDUR) 30MG XR TAB PO SCH (09:23)
[2022-02-03] MEDS: **hydrALAZINE HCL** 25 MG TAB PO SCH ×3 (09:23→21:59)
[2022-02-03 14:00] VITALS: BP 136/64
[2022-02-03] MEDS ORDERED: FERRIC CARBOXYMALTOSE INJ 750 MG, VIAL MATE ADAPTER 1 EACH in NS 250 ML IV ONE (15:00)
[2022-02-03 21:30] VITALS: BP 156/84
[2022-02-03] MEDS: LEVEMIR (INSULIN DETEMIR) 1 UNITS/0.01ML SC SCH (21:58)
[2022-02-04] MEDS: FUROSEMIDE 40MG/4ML VIAL (J1940) IV SCH ×3 (02:07→13:50)
[2022-02-04] MEDS: PIPERACILLIN/TAZOBACTAM SOD 3.375 GM in D5W MINI-BAG PLUS 50 ML IV SCH ×3 (02:07→13:51)
[2022-02-04 03:15] VITALS: O2SAT 86
[2022-02-04 03:20] VITALS: O2SAT 100
[2022-02-04 06:00] VITALS: BP 155/80
[2022-02-04 06:58] LABS: BASO # 0.1 10^3/uL (0.0-0.2); BASO % 1.2 % (0.0-1.0); EOS # 0.5 10^3/uL (0.0-0.5); EOS % 5.4 % (0.0-3.0); HEMATOCRIT 29.2 % (36.0-47.0); HEMOGLOBIN 9.2 g/dl (12.0-15.5); LYMPH # 1.5 10^3/uL (1.5-5.0); LYMPH % 15.2 % (24.0-44.0); MEAN CORPUSCULAR HEMOGLOBIN 29.4 pg (27.0-33.0); MEAN CORPUSCULAR HGB CONC 31.5 g/dl (32.0-36.5); MEAN CORPUSCULAR VOLUME 93.3 fl (80.0-96.0); MONO % 10.3 % (2.0-8.0); NEUTROPHILS # 6.7 10^3/uL (1.5-8.5); NEUTROPHILS % 67.5 % (36.0-66.0); PLATELET COUNT, AUTOMATED 280 10^3/uL (150-450); RED BLOOD COUNT 3.13 10^6/uL (4.00-5.40); WHITE BLOOD COUNT 9.9 10^3/uL (4.0-10.0)
[2022-02-04 07:23] LABS: CALCIUM LEVEL 8.7 MG/DL (8.5-10.1); CREATININE FOR GFR 2.79 MG/DL (0.55-1.30); GLOMERULAR FILTRATION RATE 18.8 (>51); POTASSIUM SERUM 3.8 MEQ/L (3.5-5.1)
[2022-02-04] MEDS: INSULIN LISPRO (NovoLOG) PER UNIT SC SCH ×4 (08:47→21:00)
[2022-02-04] MEDS: ATORVASTATIN 20 MG TAB PO SCH (08:48)
[2022-02-04] MEDS: METOPROLOL TART 25 MG TABLET PO SCH ×2 (08:48→21:28)
[2022-02-04] MEDS: levETIRAcetam 250MG TABLET (KEPPRA) PO SCH ×2 (08:48→21:28)
[2022-02-04] MEDS: POTASSIUM CHLORIDE 10MEQ SR TABLET PO SCH ×3 (08:49→21:29)
[2022-02-04] MEDS: ISOSORBIDE MON. (IMDUR) 30MG XR TAB PO SCH (08:49)
[2022-02-04] MEDS: **hydrALAZINE HCL** 25 MG TAB PO SCH ×3 (08:49→21:28)
[2022-02-04] MEDS: HEPARIN SOD (PORCINE) 5000UNITS/ML 1ML VIAL/SYRINGE SQ SCH ×2 (08:49→21:27)
[2022-02-04 11:03] VITALS: O2SAT 94
[2022-02-04 14:00] VITALS: BP 150/80
[2022-02-04] MEDS: LevoFLOXacin 750 MG TABLET PO SCH (21:29)
[2022-02-04] MEDS: LEVEMIR (INSULIN DETEMIR) 1 UNITS/0.01ML SC SCH (21:34)
[2022-02-04 22:00] VITALS: BP 151/76
[2022-02-05 02:02] VITALS: O2SAT 94
[2022-02-05 06:00] VITALS: BP 167/84
[2022-02-05 07:32] LABS: BASO # 0.1 10^3/uL (0.0-0.2); BASO % 0.9 % (0.0-1.0); EOS # 0.5 10^3/uL (0.0-0.5); EOS % 4.5 % (0.0-3.0); HEMOGLOBIN 9.4 g/dl (12.0-15.5); LYMPH % 8.2 % (24.0-44.0); MEAN CORPUSCULAR HGB CONC 32.4 g/dl (32.0-36.5); MEAN CORPUSCULAR VOLUME 92.7 fl (80.0-96.0); MONO # 1.2 10^3/uL (0.0-0.8); MONO % 10.2 % (2.0-8.0); NEUTROPHILS # 8.8 10^3/uL (1.5-8.5); NEUTROPHILS % 75.9 % (36.0-66.0); PLATELET COUNT, AUTOMATED 260 10^3/uL (150-450); RED BLOOD COUNT 3.13 10^6/uL (4.00-5.40); WHITE BLOOD COUNT 11.6 10^3/uL (4.0-10.0)
[2022-02-05 07:55] LABS: CALCIUM LEVEL 8.5 MG/DL (8.5-10.1); CREATININE FOR GFR 3.03 MG/DL (0.55-1.30); GLOMERULAR FILTRATION RATE 17.1 (>51); POTASSIUM SERUM 3.9 MEQ/L (3.5-5.1)
[2022-02-05] MEDS: TORSEMIDE 20 MG TAB PO SCH ×2 (08:15→17:08)
[2022-02-05] MEDS: HEPARIN SOD (PORCINE) 5000UNITS/ML 1ML VIAL/SYRINGE SQ SCH ×2 (08:15→20:49)
[2022-02-05] MEDS: INSULIN LISPRO (NovoLOG) PER UNIT SC SCH ×4 (08:15→20:18)
[2022-02-05] MEDS: METOPROLOL TART 25 MG TABLET PO SCH ×2 (08:15→20:48)
[2022-02-05] MEDS: POTASSIUM CHLORIDE 10MEQ SR TABLET PO SCH ×3 (08:16→20:47)
[2022-02-05] MEDS: ISOSORBIDE MON. (IMDUR) 30MG XR TAB PO SCH (08:16)
[2022-02-05] MEDS: ATORVASTATIN 20 MG TAB PO SCH (08:16)
[2022-02-05] MEDS: levETIRAcetam 250MG TABLET (KEPPRA) PO SCH ×2 (08:16→20:47)
[2022-02-05] MEDS: **hydrALAZINE HCL** 25 MG TAB PO SCH ×3 (08:16→20:48)
[2022-02-05 09:29] VITALS: O2SAT 93
[2022-02-05] MEDS: FLUTICASONE PROP 0.05% NASAL SPRAY 16 GM (FLONASE) NARES SCH ×2 (11:41→20:49)
[2022-02-05 14:00] VITALS: BP 136/82
[2022-02-05 20:00] VITALS: BP 160/80
[2022-02-05] MEDS: LEVEMIR (INSULIN DETEMIR) 1 UNITS/0.01ML SC SCH (20:48)
[2022-02-06 06:00] VITALS: BP 158/80
[2022-02-06 07:03] LABS: BASO # 0.1 10^3/uL (0.0-0.2); BASO % 0.9 % (0.0-1.0); EOS # 0.5 10^3/uL (0.0-0.5); EOS % 4.6 % (0.0-3.0); HEMATOCRIT 29.5 % (36.0-47.0); HEMOGLOBIN 9.3 g/dl (12.0-15.5); LYMPH # 1.3 10^3/uL (1.5-5.0); LYMPH % 12.7 % (24.0-44.0); MEAN CORPUSCULAR HEMOGLOBIN 29.5 pg (27.0-33.0); MEAN CORPUSCULAR HGB CONC 31.5 g/dl (32.0-36.5); MEAN CORPUSCULAR VOLUME 93.7 fl (80.0-96.0); MONO # 1.2 10^3/uL (0.0-0.8); MONO % 11.9 % (2.0-8.0); NEUTROPHILS # 6.9 10^3/uL (1.5-8.5); NEUTROPHILS % 69.6 % (36.0-66.0); PLATELET COUNT, AUTOMATED 254 10^3/uL (150-450); RED BLOOD COUNT 3.15 10^6/uL (4.00-5.40); WHITE BLOOD COUNT 9.8 10^3/uL (4.0-10.0)
[2022-02-06 07:24] LABS: CALCIUM LEVEL 8.4 MG/DL (8.5-10.1); CREATININE FOR GFR 2.98 MG/DL (0.55-1.30); GLOMERULAR FILTRATION RATE 17.4 (>51); POTASSIUM SERUM 3.7 MEQ/L (3.5-5.1)
[2022-02-06] MEDS ORDERED: DARBEPOETIN 100 MCG/0.5 ML *NON-DIALYSIS* SYRINGE (J0881) SC SCH (09:00)
[2022-02-06] MEDS: HEPARIN SOD (PORCINE) 5000UNITS/ML 1ML VIAL/SYRINGE SQ SCH ×2 (09:15→21:02)
[2022-02-06] MEDS: INSULIN LISPRO (NovoLOG) PER UNIT SC SCH ×4 (09:15→20:51)
[2022-02-06] MEDS: METOPROLOL TART 25 MG TABLET PO SCH ×2 (09:16→21:04)
[2022-02-06] MEDS: POTASSIUM CHLORIDE 10MEQ SR TABLET PO SCH ×3 (09:16→21:03)
[2022-02-06] MEDS: ATORVASTATIN 20 MG TAB PO SCH (09:16)
[2022-02-06] MEDS: TORSEMIDE 20 MG TAB PO SCH ×2 (09:17→16:24)
[2022-02-06] MEDS: **hydrALAZINE HCL** 25 MG TAB PO SCH ×3 (09:17→21:04)
[2022-02-06] MEDS: ISOSORBIDE MON. (IMDUR) 30MG XR TAB PO SCH (09:17)
[2022-02-06] MEDS: levETIRAcetam 250MG TABLET (KEPPRA) PO SCH ×2 (09:18→21:03)
[2022-02-06] MEDS: FLUTICASONE PROP 0.05% NASAL SPRAY 16 GM (FLONASE) NARES SCH ×2 (09:18→10:34)
[2022-02-06] MEDS: LEVEMIR (INSULIN DETEMIR) 1 UNITS/0.01ML SC SCH (21:03)
[2022-02-06] MEDS: LevoFLOXacin 750 MG TABLET PO SCH (21:03)
[2022-02-07 06:00] VITALS: BP 135/66
[2022-02-07] MEDS: INSULIN LISPRO (NovoLOG) PER UNIT SC SCH ×4 (08:15→21:00)
[2022-02-07] MEDS: HEPARIN SOD (PORCINE) 5000UNITS/ML 1ML VIAL/SYRINGE SQ SCH ×2 (08:16→21:57)
[2022-02-07] MEDS: **hydrALAZINE HCL** 25 MG TAB PO SCH ×3 (08:16→21:57)
[2022-02-07] MEDS: TORSEMIDE 20 MG TAB PO SCH ×2 (08:17→16:09)
[2022-02-07] MEDS: ISOSORBIDE MON. (IMDUR) 30MG XR TAB PO SCH (08:17)
[2022-02-07] MEDS: METOPROLOL TART 25 MG TABLET PO SCH ×2 (08:18→21:56)
[2022-02-07] MEDS: levETIRAcetam 250MG TABLET (KEPPRA) PO SCH ×2 (08:18→21:57)
[2022-02-07] MEDS: ATORVASTATIN 20 MG TAB PO SCH (08:18)
[2022-02-07] MEDS: POTASSIUM CHLORIDE 10MEQ SR TABLET PO SCH ×3 (08:18→21:57)
[2022-02-07] MEDS: FLUTICASONE PROP 0.05% NASAL SPRAY 16 GM (FLONASE) NARES SCH ×2 (08:19→21:58)
[2022-02-07] MEDS: LEVEMIR (INSULIN DETEMIR) 1 UNITS/0.01ML SC SCH (21:57)
[2022-02-07] MEDS: ACETAMINOPHEN TAB 650MG DOSE (2X325MG) PO PRN (23:13)
[2022-02-08 06:00] VITALS: BP 150/70
[2022-02-08 06:39] LABS: BASO # 0.1 10^3/uL (0.0-0.2); EOS # 0.4 10^3/uL (0.0-0.5); EOS % 4.9 % (0.0-3.0); HEMOGLOBIN 9.4 g/dl (12.0-15.5); LYMPH # 1.8 10^3/uL (1.5-5.0); LYMPH % 20.1 % (24.0-44.0); MEAN CORPUSCULAR HEMOGLOBIN 29.5 pg (27.0-33.0); MEAN CORPUSCULAR HGB CONC 31.3 g/dl (32.0-36.5); MONO # 0.9 10^3/uL (0.0-0.8); NEUTROPHILS # 5.8 10^3/uL (1.5-8.5); NEUTROPHILS % 63.6 % (36.0-66.0); PLATELET COUNT, AUTOMATED 255 10^3/uL (150-450); RED BLOOD COUNT 3.19 10^6/uL (4.00-5.40); WHITE BLOOD COUNT 9.1 10^3/uL (4.0-10.0)
[2022-02-08 07:12] LABS: ALBUMIN 1.8 GM/DL (3.2-5.2); CALCIUM LEVEL 8.6 MG/DL (8.5-10.1); CREATININE FOR GFR 2.93 MG/DL (0.55-1.30); GLOMERULAR FILTRATION RATE 17.8 (>51); POTASSIUM SERUM 3.9 MEQ/L (3.5-5.1)
[2022-02-08] MEDS: INSULIN LISPRO (NovoLOG) PER UNIT SC SCH ×4 (08:45→20:34)
[2022-02-08] MEDS: HEPARIN SOD (PORCINE) 5000UNITS/ML 1ML VIAL/SYRINGE SQ SCH ×2 (08:45→20:34)
[2022-02-08] MEDS: levETIRAcetam 250MG TABLET (KEPPRA) PO SCH ×2 (08:46→20:33)
[2022-02-08] MEDS: ISOSORBIDE MON. (IMDUR) 30MG XR TAB PO SCH (08:46)
[2022-02-08] MEDS: ATORVASTATIN 20 MG TAB PO SCH (08:47)
[2022-02-08] MEDS: **hydrALAZINE HCL** 25 MG TAB PO SCH ×3 (08:47→20:33)
[2022-02-08] MEDS: TORSEMIDE 20 MG TAB PO SCH ×2 (08:48→16:57)
[2022-02-08] MEDS: METOPROLOL TART 25 MG TABLET PO SCH ×2 (08:48→20:33)
[2022-02-08] MEDS: POTASSIUM CHLORIDE 10MEQ SR TABLET PO SCH ×3 (08:48→20:34)
[2022-02-08] MEDS: FLUTICASONE PROP 0.05% NASAL SPRAY 16 GM (FLONASE) NARES SCH ×2 (08:49→20:35)
[2022-02-08 20:30] VITALS: BP 142/78
[2022-02-08] MEDS: LevoFLOXacin 750 MG TABLET PO SCH (20:33)
[2022-02-08] MEDS: LEVEMIR (INSULIN DETEMIR) 1 UNITS/0.01ML SC SCH (20:34)
[2022-02-08] MEDS: ACETAMINOPHEN TAB 650MG DOSE (2X325MG) PO PRN (20:35)
[2022-02-09 05:00] VITALS: BP 152/74
[2022-02-09 05:28] VITALS: O2SAT 76
[2022-02-09 05:30] VITALS: O2SAT 94
[2022-02-09] MEDS: INSULIN LISPRO (NovoLOG) PER UNIT SC SCH ×4 (07:30→21:00)
[2022-02-09] MEDS: HEPARIN SOD (PORCINE) 5000UNITS/ML 1ML VIAL/SYRINGE SQ SCH ×2 (08:43→21:41)
[2022-02-09] MEDS: levETIRAcetam 250MG TABLET (KEPPRA) PO SCH ×2 (08:44→21:40)
[2022-02-09] MEDS: TORSEMIDE 20 MG TAB PO SCH ×2 (08:44→17:40)
[2022-02-09] MEDS: ATORVASTATIN 20 MG TAB PO SCH (08:44)
[2022-02-09] MEDS: POTASSIUM CHLORIDE 10MEQ SR TABLET PO SCH ×3 (08:44→21:40)
[2022-02-09] MEDS: FLUTICASONE PROP 0.05% NASAL SPRAY 16 GM (FLONASE) NARES SCH ×2 (08:45→21:41)
[2022-02-09] MEDS: ISOSORBIDE MON. (IMDUR) 30MG XR TAB PO SCH (08:48)
[2022-02-09] MEDS: METOPROLOL TART 25 MG TABLET PO SCH ×2 (08:49→21:40)
[2022-02-09] MEDS: **hydrALAZINE HCL** 25 MG TAB PO SCH ×3 (09:49→21:40)
[2022-02-09] MEDS: LEVEMIR (INSULIN DETEMIR) 1 UNITS/0.01ML SC SCH (21:41)
[2022-02-09] MEDS: ACETAMINOPHEN TAB 650MG DOSE (2X325MG) PO PRN (21:42)
[2022-02-10 01:49] VITALS: O2SAT 95
[2022-02-10 05:30] VITALS: BP 148/72
[2022-02-10] MEDS: INSULIN LISPRO (NovoLOG) PER UNIT SC SCH ×4 (07:30→21:00)
[2022-02-10 08:28] LABS: HEMATOCRIT 34.5 % (36.0-47.0); HEMOGLOBIN 10.7 g/dl (12.0-15.5); MEAN CORPUSCULAR HEMOGLOBIN 29.1 pg (27.0-33.0); MEAN CORPUSCULAR VOLUME 93.8 fl (80.0-96.0); PLATELET COUNT, AUTOMATED 281 10^3/uL (150-450); RED BLOOD COUNT 3.68 10^6/uL (4.00-5.40); WHITE BLOOD COUNT 9.4 10^3/uL (4.0-10.0)
[2022-02-10 09:04] LABS: ALBUMIN 2.4 GM/DL (3.2-5.2); BILIRUBIN,TOTAL 0.4 MG/DL (0.2-1.0); CALCIUM LEVEL 9.4 MG/DL (8.5-10.1); CREATININE FOR GFR 3.03 MG/DL (0.55-1.30); GLOMERULAR FILTRATION RATE 17.1 (>51); POTASSIUM SERUM 4.1 MEQ/L (3.5-5.1)
[2022-02-10] MEDS: HEPARIN SOD (PORCINE) 5000UNITS/ML 1ML VIAL/SYRINGE SQ SCH ×2 (10:00→21:23)
[2022-02-10] MEDS: ISOSORBIDE MON. (IMDUR) 30MG XR TAB PO SCH (10:01)
[2022-02-10] MEDS: ATORVASTATIN 20 MG TAB PO SCH (10:02)
[2022-02-10] MEDS: METOPROLOL TART 25 MG TABLET PO SCH ×2 (10:03→21:22)
[2022-02-10] MEDS: TORSEMIDE 20 MG TAB PO SCH ×2 (10:03→17:13)
[2022-02-10] MEDS: **hydrALAZINE HCL** 25 MG TAB PO SCH ×3 (10:04→21:21)
[2022-02-10] MEDS: POTASSIUM CHLORIDE 10MEQ SR TABLET PO SCH ×3 (10:04→21:22)
[2022-02-10] MEDS: levETIRAcetam 250MG TABLET (KEPPRA) PO SCH ×2 (10:05→21:22)
[2022-02-10] MEDS: FLUTICASONE PROP 0.05% NASAL SPRAY 16 GM (FLONASE) NARES SCH ×2 (10:05→21:24)
[2022-02-10] MEDS: LevoFLOXacin 750 MG TABLET PO SCH (21:21)
[2022-02-10] MEDS: LEVEMIR (INSULIN DETEMIR) 1 UNITS/0.01ML SC SCH (21:23)
[2022-02-10] MEDS: ACETAMINOPHEN TAB 650MG DOSE (2X325MG) PO PRN (21:24)
[2022-02-11 00:48] VITALS: O2SAT 93
[2022-02-11 06:00] VITALS: BP 147/73
[2022-02-11] MEDS: INSULIN LISPRO (NovoLOG) PER UNIT SC SCH ×4 (07:30→21:00)
[2022-02-11] MEDS: ATORVASTATIN 20 MG TAB PO SCH (09:27)
[2022-02-11] MEDS: ISOSORBIDE MON. (IMDUR) 30MG XR TAB PO SCH (09:28)
[2022-02-11] MEDS: levETIRAcetam 250MG TABLET (KEPPRA) PO SCH ×2 (09:28→22:13)
[2022-02-11] MEDS: **hydrALAZINE HCL** 25 MG TAB PO SCH ×3 (09:29→22:14)
[2022-02-11] MEDS: POTASSIUM CHLORIDE 10MEQ SR TABLET PO SCH ×3 (09:29→22:13)
[2022-02-11] MEDS: TORSEMIDE 20 MG TAB PO SCH ×2 (09:29→17:08)
[2022-02-11] MEDS: HEPARIN SOD (PORCINE) 5000UNITS/ML 1ML VIAL/SYRINGE SQ SCH ×2 (09:30→22:12)
[2022-02-11] MEDS: METOPROLOL TART 25 MG TABLET PO SCH ×2 (09:49→22:13)
[2022-02-11] MEDS: FLUTICASONE PROP 0.05% NASAL SPRAY 16 GM (FLONASE) NARES SCH ×2 (09:50→22:14)
[2022-02-11] MEDS ORDERED: HYDR25TA PO (18:08)
[2022-02-11] MEDS ORDERED: METO25TA4 PO (18:08)
[2022-02-11] MEDS ORDERED: POTA-136 PO (18:08)
[2022-02-11] MEDS ORDERED: TORS20TA2 PO (18:08)
[2022-02-11] MEDS: LEVEMIR (INSULIN DETEMIR) 1 UNITS/0.01ML SC SCH (22:14)
[2022-02-12 06:00] VITALS: BP 147/75
[2022-02-12] MEDS: INSULIN LISPRO (NovoLOG) PER UNIT SC SCH ×2 (07:30→12:00)
[2022-02-12 07:36] LABS: BASO # 0.1 10^3/uL (0.0-0.2); BASO % 1.2 % (0.0-1.0); EOS # 0.4 10^3/uL (0.0-0.5); EOS % 4.1 % (0.0-3.0); HEMATOCRIT 31.7 % (36.0-47.0); HEMOGLOBIN 9.9 g/dl (12.0-15.5); LYMPH # 2.2 10^3/uL (1.5-5.0); LYMPH % 22.3 % (24.0-44.0); MEAN CORPUSCULAR HEMOGLOBIN 29.4 pg (27.0-33.0); MEAN CORPUSCULAR HGB CONC 31.2 g/dl (32.0-36.5); MEAN CORPUSCULAR VOLUME 94.1 fl (80.0-96.0); MONO % 9.9 % (2.0-8.0); NEUTROPHILS % 61.9 % (36.0-66.0); PLATELET COUNT, AUTOMATED 263 10^3/uL (150-450); RED BLOOD COUNT 3.37 10^6/uL (4.00-5.40); WHITE BLOOD COUNT 9.6 10^3/uL (4.0-10.0)
[2022-02-12 08:19] LABS: ALBUMIN 2.2 GM/DL (3.2-5.2); CALCIUM LEVEL 9.1 MG/DL (8.5-10.1); CREATININE FOR GFR 3.21 MG/DL (0.55-1.30); PHOSPHORUS LEVEL 5.5 MG/DL (2.5-4.9); POTASSIUM SERUM 3.7 MEQ/L (3.5-5.1)
[2022-02-12 09:00] VITALS: O2SAT 97
[2022-02-12 09:56] VITALS: BP 178/98
[2022-02-12] MEDS: METOPROLOL TART 25 MG TABLET PO SCH (09:56)
[2022-02-12] MEDS: ATORVASTATIN 20 MG TAB PO SCH (09:56)
[2022-02-12] MEDS: ISOSORBIDE MON. (IMDUR) 30MG XR TAB PO SCH (09:57)
[2022-02-12] MEDS: levETIRAcetam 250MG TABLET (KEPPRA) PO SCH (09:57)
[2022-02-12] MEDS: HEPARIN SOD (PORCINE) 5000UNITS/ML 1ML VIAL/SYRINGE SQ SCH (09:58)
[2022-02-12] MEDS: **hydrALAZINE HCL** 25 MG TAB PO SCH (09:58)
[2022-02-12] MEDS ORDERED: FLUBLOK(EGG FREE)(QUAD)INFLUENZA VACC 0.5ML SYRINGE 18YRS & OLDER IM.IMMUN ONE (10:00)
[2022-02-12] MEDS: TORSEMIDE 20 MG TAB PO SCH (10:01)
[2022-02-12] MEDS: FLUTICASONE PROP 0.05% NASAL SPRAY 16 GM (FLONASE) NARES SCH (10:02)
[2022-02-12] MEDS: POTASSIUM CHLORIDE 10MEQ SR TABLET PO SCH (10:02)
== END 2022-02-12 13:15 | disposition home health service (06) | DRG 314 ==
LOC: EDBD 13:26 → M ED 13:26 → M ED INP 23:00 → M MSPAV 01-30 15:16
PROVIDERS: ADMIT Internal Medicine; ATTEND Internal Medicine
PROC: 30233N1 Transfusion of Nonautologous Red Blood Cells into Peripheral Vein, Percutaneous Approach (ICD-10-PCS; 2022-01-31)
PROC: 0Y6P0Z1 Detachment at Right 1st Toe, High, Open Approach (ICD-10-PCS; principal; 2022-01-31 11:15)
DX: E11.69 Type 2 diabetes mellitus with other specified complication (principal); E11.22 Type 2 diabetes mellitus with diabetic chronic kidney disease; N18.4 Chronic kidney disease, stage 4 (severe); N17.9 Acute kidney failure, unspecified; I13.0 Hypertensive heart and chronic kidney disease with heart failure and stage 1 through stage 4 chronic kidney disease, or unspecified chronic kidney disease; L03.116 Cellulitis of left lower limb; I50.9 Heart failure, unspecified; L97.519 Non-pressure chronic ulcer of other part of right foot with unspecified severity; L97.529 Non-pressure chronic ulcer of other part of left foot with unspecified severity; M86.8X7 Other osteomyelitis, ankle and foot; E78.5 Hyperlipidemia, unspecified; G40.909 Epilepsy, unspecified, not intractable, without status epilepticus; Z79.899 Other long term (current) drug therapy; Z79.4 Long term (current) use of insulin; E66.9 Obesity, unspecified; D63.1 Anemia in chronic kidney disease; E87.6 Hypokalemia; E11.621 Type 2 diabetes mellitus with foot ulcer

== ENCOUNTER → 2022-03-31 | Outpatient (REF) | payer OTHER ==
[~2022-03-31] MED LIST changes: +HYDR-3910 PO; +KEPP250T5 PO; +METO10TA2 PO; +METO25TA4 PO; +POTA-136 PO; +med rec comment
[2022-03-31 16:56] LABS: BASO # 0.1 10^3/uL (0.0-0.2); BASO % 1.1 % (0.0-1.0); EOS # 0.3 10^3/uL (0.0-0.5); HEMATOCRIT 43.2 % (36.0-47.0); HEMOGLOBIN 13.3 g/dl (12.0-15.5); LYMPH # 1.4 10^3/uL (1.5-5.0); LYMPH % 20.4 % (24.0-44.0); MEAN CORPUSCULAR HEMOGLOBIN 28.1 pg (27.0-33.0); MEAN CORPUSCULAR HGB CONC 30.8 g/dl (32.0-36.5); MEAN CORPUSCULAR VOLUME 91.3 fl (80.0-96.0); MONO # 0.5 10^3/uL (0.0-0.8); MONO % 6.6 % (2.0-8.0); NEUTROPHILS # 4.8 10^3/uL (1.5-8.5); NEUTROPHILS % 67.6 % (36.0-66.0); PLATELET COUNT, AUTOMATED 225 10^3/uL (150-450); RED BLOOD COUNT 4.73 10^6/uL (4.00-5.40); WHITE BLOOD COUNT 7.1 10^3/uL (4.0-10.0)
[2022-03-31 18:09] LABS: ALBUMIN 3.2 G/DL (3.2-5.2); BILIRUBIN,TOTAL 0.4 MG/DL (0.3-1.2); CALCIUM LEVEL 9.3 MG/DL (8.5-10.1); CHOLESTEROL RISK RATIO 2.63 (<5); CREATININE FOR GFR 2.83 MG/DL (0.55-1.30); GLOMERULAR FILTRATION RATE 18.4 (>51); HDL CHOLESTEROL 40.6 MG/DL (>40); LDL CHOLESTEROL 42.8 MG/DL (<100); POTASSIUM SERUM 4.9 MMOL/L (3.5-5.1)
[2022-03-31 19:07] LABS: HEMOGLOBIN A1c 6.1 % (4.0-6.0)
== END ==
LOC: M LAB REF 16:23
PROVIDERS: ATTEND Nurse Practitioner Family
DX: Z13.228 Encounter for screening for other metabolic disorders (principal)

== ENCOUNTER → 2022-07-15 | Outpatient (REF) | payer OTHER ==
[~2022-07-15] MED LIST changes: +INSU100I6 SC; -LEVE1INJ5 SC
[2022-07-15 18:41] LABS: THYROID STIMULATING HORMONE 6.245 uIU/ML (0.55-4.78)
[2022-07-15 18:42] LABS: FOLATE 11.1 NG/ML (>5.4)
== END ==
LOC: M LABDRAWC 16:44
PROVIDERS: ATTEND Psychiatry & Neurology Neurology
DX: E03.9 Hypothyroidism, unspecified (principal)

== ENCOUNTER → 2022-07-28 | Outpatient (REF) | payer OTHER, MEDICAID | LOC: M LAB REF 17:46 | PROVIDERS: ATTEND Internal Medicine Nephrology | DX: D50.9 Iron deficiency anemia, unspecified (principal) ==

== ENCOUNTER → 2022-10-11 | Outpatient (REF) | payer OTHER ==
[~2022-10-11] MED LIST changes: +ARTIDRO4 OU; -POLYOPD OU
== END ==
LOC: M LABDRAWC 17:05
PROVIDERS: ATTEND Nurse Practitioner Family
DX: E11.65 Type 2 diabetes mellitus with hyperglycemia (principal)

== ENCOUNTER → 2022-10-11 | Outpatient (REF) | payer OTHER ==
[2022-10-11 18:39] LABS: BASO # 0.1 10^3/uL (0.0-0.2); BASO % 1.5 % (0.0-1.0); EOS # 0.4 10^3/uL (0.0-0.5); EOS % 4.8 % (0.0-3.0); HEMATOCRIT 30.2 % (36.0-47.0); HEMOGLOBIN 9.2 g/dl (12.0-15.5); LYMPH # 1.4 10^3/uL (1.5-5.0); MEAN CORPUSCULAR HGB CONC 30.5 g/dl (32.0-36.5); MEAN CORPUSCULAR VOLUME 98.4 fl (80.0-96.0); MONO # 0.5 10^3/uL (0.0-0.8); MONO % 7.1 % (2.0-8.0); NEUTROPHILS # 4.9 10^3/uL (1.5-8.5); NEUTROPHILS % 67.2 % (36.0-66.0); PLATELET COUNT, AUTOMATED 291 10^3/uL (150-450); RED BLOOD COUNT 3.07 10^6/uL (4.00-5.40); WHITE BLOOD COUNT 7.2 10^3/uL (4.0-10.0)
[2022-10-11 19:09] LABS: BILIRUBIN,TOTAL 0.3 MG/DL (0.3-1.2); CALCIUM LEVEL 8.5 MG/DL (8.5-10.1); CHOLESTEROL RISK RATIO 3.27 (<5); CREATININE FOR GFR 2.36 MG/DL (0.55-1.30); GLOMERULAR FILTRATION RATE 22.7 (>51); HDL CHOLESTEROL 55.5 MG/DL (>40); LDL CHOLESTEROL 89.1 MG/DL (<100); NON-HDL-C 126.5 MG/DL; POTASSIUM SERUM 3.7 MMOL/L (3.5-5.1); TOTAL PROTEIN 6.3 G/DL (5.7-8.2)
[2022-10-11 19:13] LABS: HEMOGLOBIN A1c 5.4 % (4.0-6.0)
[2022-10-11 19:15] LABS: THYROID STIMULATING HORMONE 6.99 uIU/ML (0.55-4.78)
== END ==
LOC: M LABDRAWC 17:10
DX: E11.649 Type 2 diabetes mellitus with hypoglycemia without coma (principal); N18.4 Chronic kidney disease, stage 4 (severe)

== ENCOUNTER → 2022-10-11 | Outpatient (REF) | payer OTHER | LOC: M LAB REF 17:02 | PROVIDERS: ATTEND Nurse Practitioner Family | DX: R19.7 Diarrhea, unspecified (principal) ==

== ENCOUNTER → 2022-11-04 | Outpatient (REF) | payer OTHER, MEDICAID ==
[2022-11-04 18:50] LABS: PERCENT SATURATION 27.4 % (13.2-45.0)
== END ==
LOC: M LAB REF 17:29
PROVIDERS: ATTEND Internal Medicine Nephrology
DX: D50.9 Iron deficiency anemia, unspecified (principal)

== ENCOUNTER 2022-12-03 13:07 | Day surgery (SDC) | payer OTHER ==
[~2022-12-03] VITALS: Ht 149.9 cm; Wt 78.3 kg
[~2022-12-03 13:07] MED LIST changes: +AMLO1TAB24 PO; +BASA100I SC; +ECOT81TA5 PO; +HYDR10TAB PO; +INSU100I24 SC; -INSU100I9 SC; +LEVE500T5 PO; +LIDOCAINE 2% 100MG/5ML SDV (FOR ANES.) As Ordered ONE; +METO1TAB7 PO; +NS 1,000 ML IV ONE; +propofoL 200 MG/20 ML VIAL As Ordered ONE
[2022-12-03] MEDS ORDERED: fentaNYL 100 MCG/2 ML INJECTION As Ordered ONE (14:34)
[2022-12-03] MEDS ORDERED: propofoL 200 MG/20 ML VIAL As Ordered ONE (14:34)
[2022-12-03 15:00] VITALS: TEMP 96.9
[2022-12-03 15:28] VITALS: BP 167/79; O2SAT 99
== END 2022-12-03 18:56 | disposition home or self-care (01) ==
LOC: M OPP 13:07
PROVIDERS: ATTEND Internal Medicine Gastroenterology
DX: K31.89 Other diseases of stomach and duodenum (principal); D50.9 Iron deficiency anemia, unspecified; Z79.4 Long term (current) use of insulin; Z79.82 Long term (current) use of aspirin; Z79.899 Other long term (current) drug therapy; Z88.1 Allergy status to other antibiotic agents
CPT/HCPCS: 43239; 88305; J3010

== ENCOUNTER → 2023-01-12 | Outpatient (REF) | payer OTHER, MEDICAID ==
[~2023-01-12] MED LIST changes: -LIDOCAINE 2% 100MG/5ML SDV (FOR ANES.) As Ordered ONE; -NS 1,000 ML IV ONE; -propofoL 200 MG/20 ML VIAL As Ordered ONE
[2023-01-12 18:15] LABS: BASO # 0.1 10^3/uL (0.0-0.2); BASO % 1.6 % (0.0-1.0); EOS # 0.2 10^3/uL (0.0-0.5); EOS % 3.6 % (0.0-3.0); HEMATOCRIT 27.5 % (36.0-47.0); HEMOGLOBIN 8.5 g/dl (12.0-15.5); LYMPH # 1.3 10^3/uL (1.5-5.0); LYMPH % 18.7 % (24.0-44.0); MEAN CORPUSCULAR HEMOGLOBIN 29.3 pg (27.0-33.0); MEAN CORPUSCULAR HGB CONC 30.9 g/dl (32.0-36.5); MEAN CORPUSCULAR VOLUME 94.8 fl (80.0-96.0); MONO # 0.6 10^3/uL (0.0-0.8); NEUTROPHILS # 4.5 10^3/uL (1.5-8.5); NEUTROPHILS % 66.7 % (36.0-66.0); PLATELET COUNT, AUTOMATED 277 10^3/uL (150-450); WHITE BLOOD COUNT 6.7 10^3/uL (4.0-10.0)
[2023-01-12 18:43] LABS: PERCENT SATURATION 28.7 % (13.2-45.0)
[2023-01-12 18:44] LABS: FERRITIN 246.9 NG/ML (7.3-270.7)
[2023-01-12 18:46] LABS: FOLATE 12.6 NG/ML (>5.4)
== END ==
LOC: M LABDRAWC 17:48
PROVIDERS: ATTEND Internal Medicine Gastroenterology
DX: E11.43 Type 2 diabetes mellitus with diabetic autonomic (poly)neuropathy (principal)

== ENCOUNTER → 2023-06-06 | Outpatient (REF) | payer OTHER ==
[~2023-06-06] MED LIST changes: +HYDR-161 PO; -HYDR10TAB PO; +PEN-308 SC; -PEN1MIS21 SC
== END ==
LOC: M LABDRAWC 16:58
PROVIDERS: ATTEND Nurse Practitioner Family
DX: E11.65 Type 2 diabetes mellitus with hyperglycemia (principal)

== ENCOUNTER 2023-06-15 17:06 | Inpatient (IN) | payer MEDICAID, OTHER ==
[~2023-06-15] VITALS: Ht 149.9 cm; Wt 83.0 kg
[~2023-06-15 17:06] MED LIST changes: -HYDR-3910 PO; -HYDR25TA PO; +HYDR25TA87 PO; +HYDR25TA88 PO
[2023-06-15] MEDS: NS 2,140 ML in IV 1 EA IV ONE (18:18)
[2023-06-15 18:42] LABS: ABG BASE EXCESS -16.8 (-2.0-2.0); ABG HCO3 8.3 MMOL/L (22.0-26.0); ABG O2 SATURATION 98.5 % (95.0-99.0); ABG PARTIAL PRESSURE O2 140.8 mmHg (75.0-100.0); ABG STANDARD HCO3 11.5 MMOL/L. (22.0-26.0); ABG TOTAL CO2 8.9 MMOL/L (22.0-29.0)
[2023-06-15 18:43] LABS: ABG PARTIAL PRESSURE CO2 18.5 mmHg (35.0-45.0)
[2023-06-15 18:45] LABS: HEMATOCRIT 26.8 % (36.0-47.0); HEMOGLOBIN 9.1 g/dl (12.0-15.5); MEAN CORPUSCULAR HEMOGLOBIN 29.9 pg (27.0-33.0); MEAN CORPUSCULAR VOLUME 88.2 fl (80.0-96.0); PLATELET COUNT, AUTOMATED 123 10^3/uL (150-450); RED BLOOD COUNT 3.04 10^6/uL (4.00-5.40)
[2023-06-15 18:49] LABS: WHITE BLOOD COUNT 41.8 10^3/uL (4.0-10.0)
[2023-06-15 18:50] LABS: INR 2.59; PROTHROMBIN TIME 26.8 SECONDS (12.5-14.5)
[2023-06-15 18:51] LABS: PARTIAL THROMBOPLASTIN TIME 37.6 SECONDS (24.8-34.2)
[2023-06-15 18:56] LABS: ERYTHROCYTE SEDIMENTATION RATE 49 mm/hr (0-30)
[2023-06-15] MEDS: CEFEPIME HCL 1 GM in D5W MINI-BAG PLUS 50 ML IV ONE (19:04)
[2023-06-15 19:10] LABS: APPEARANCE, URINE CLOUDY (CLEAR); BACTERIA, URINE AUTO 3+ (NEGATIVE); BILIRUBIN, URINE AUTO NEGATIVE (NEGATIVE); BLOOD, URINE BLOOD NEGATIVE (NEGATIVE); COLOR, URINE AMBER (YELLOW); GLUCOSE, URINE (UA) AUTO NEGATIVE (NEGATIVE); KETONE, URINE AUTO NEGATIVE (NEGATIVE); LEUKOCYTE ESTERASE, URINE AUTO 3+ (NEGATIVE); MUCUS, URINE SMALL (NEGATIVE); NITRITE, URINE AUTO NEGATIVE (NEGATIVE); PROTEIN, URINE AUTO 2+ mg/dL (NEGATIVE); RBC, URINE AUTO 7 /HPF (0-3); SPECIFIC GRAVITY URINE AUTO 1.012 (1.002-1.035); SQUAMOUS EPITHELIAL CELL UR AU 1 /HPF (0-6); UROBILINOGEN, URINE AUTO 0.2 mg/dL (0.0-2.0); WBC, URINE AUTO TNTC /HPF (0-3)
[2023-06-15 19:16] LABS: PROCALCITONIN 16.65 ng/ml
[2023-06-15 19:18] LABS: ALBUMIN 1.7 G/DL (3.2-5.2); ALKALINE PHOSPHATASE 236 U/L (46-116); ALT/SGPT 47 U/L (7.0-40); AMYLASE < 20 U/L (30-118); AST/SGOT 97 U/L (<34); BILIRUBIN,DIRECT 0.8 MG/DL (<0.4); BILIRUBIN,TOTAL 0.9 MG/DL (0.3-1.2); BLOOD UREA NITROGEN > 150 MG/DL (9-23); CARBON DIOXIDE LEVEL < 10.0 MMOL/L (20-31); CHLORIDE LEVEL 103 MMOL/L (98-107); CK-MB VALUE MASS 25.2 NG/ML (<3.6); CPK CREATINE PHOSPHOKINASE 1074 U/L (34-145); CREATININE FOR GFR 5.76 MG/DL (0.55-1.30); GLOMERULAR FILTRATION RATE 8.1 (>51); GLUCOSE, FASTING 53 MG/DL (60-100); MB/CK RELATIVE INDEX 2.34 (< OR =4); POTASSIUM SERUM 4.7 MMOL/L (3.5-5.1); SODIUM LEVEL 136 MMOL/L (136-145)
[2023-06-15 19:31] LABS: ATYPICAL LYMPH 1 % (0-5); LYMPHOCYTES 3 % (16-44); METAMYELOCYTES 1 % (0-0); NEUTROPHILS 78 % (28-66)
[2023-06-15 19:33] LABS: DOHLE BODIES 1+
[2023-06-15 19:36] LABS: PLATELET ESTIMATE DECREASED (NORMAL); SCHISTOCYTES 1+
[2023-06-15 19:37] LABS: CRENATED RBC 2+
[2023-06-15 19:38] LABS: MONOCYTES 2 % (0-5)
[2023-06-15 19:39] LABS: EOSINOPHILS 1 % (0-3)
[2023-06-15] MEDS: VANCOMYCIN HCL 1,000 MG, VIAL MATE ADAPTER 1 EACH in D5W 250 ML IV ONE (19:44)
[2023-06-15] MEDS: NS 1,000 ML IV ONE ×2 (20:08→22:48)
[2023-06-15 21:42] LABS: CK-MB VALUE MASS 52.1 NG/ML (<3.6)
[2023-06-15] MEDS ORDERED: NS 1,000 ML IV SCH (22:15)
[2023-06-15 22:20] LABS: MB/CK RELATIVE INDEX 3.15 (< OR =4)
[2023-06-15] MEDS: DEXTROSE 50% 50ML SYRINGE IV STA (22:36)
[2023-06-15 22:39] LABS: LDH LACTATE DEHYDROGENASE 430 U/L (120-246)
[2023-06-15] MEDS ORDERED: FLUID PLACE HOLDER IV SCH (22:45)
[2023-06-15] MEDS ORDERED: VANCOMYCIN HCL IV SCH (22:45)
[2023-06-15] MEDS ORDERED: CEFEPIME HCL 1 GM in D5W MINI-BAG PLUS 50 ML IV SCH (22:45)
[2023-06-15] MEDS ORDERED: VITA100T14 PO (22:51)
[2023-06-15] MEDS ORDERED: METO5TAB2 PO (22:51)
[2023-06-15] MEDS ORDERED: HYDR50TA46 PO (22:51)
[2023-06-15] MEDS ORDERED: TORS20TA2 PO (22:51)
[2023-06-15] MEDS ORDERED: AMLO2.5T3 PO (22:51)
[2023-06-15] MEDS ORDERED: HOME MED LIST COMPLETE! XX SCH (22:55)
[2023-06-15] MEDS ORDERED: VANCOMYCIN INTERMITTENT/PULSE DOSING BY CLINICAL PHARMACIST PER DOSING PROTOCOL XX SCH (23:50)
[2023-06-15] MEDS: NOREPINEPHRINE 4MG IN D5 250ML 4 MG in IV 1 EA IV SCH (23:54)
[2023-06-16] VITALS (29 sets, daily range): BP systolic 92–150; BP diastolic 44–83; TEMP 97–99.6; O2SAT 98–100
[2023-06-16] MEDS: SODIUM BICARBONATE 150 MEQ in D5W 1,000 ML IV SCH
[2023-06-16] MEDS: VANCOMYCIN HCL 500 MG in D5W MINI-BAG PLUS 100 ML IV ONE (01:04)
[2023-06-16 02:34] LABS: D-DIMER QUANT 4.58 ug/mL (<0.5)
[2023-06-16 05:43] LABS: INR 2.77; PARTIAL THROMBOPLASTIN TIME 33.9 SECONDS (24.8-34.2); PROTHROMBIN TIME 28.3 SECONDS (12.5-14.5)
[2023-06-16 05:59] LABS: IRON (FE) 34 UG/DL (50-170); PERCENT SATURATION 21.5 % (13.2-45.0); TOTAL IRON BINDING CAPACITY 158 UG/DL (250-425)
[2023-06-16] MEDS: ALBUTEROL SULFATE 2.5MG/0.5ML INH NEB SOLN NEB SCH (06:15)
[2023-06-16 06:25] LABS: ALBUMIN 1.4 G/DL (3.2-5.2); ALKALINE PHOSPHATASE 221 U/L (46-116); ALT/SGPT 72 U/L (7.0-40); AST/SGOT 153 U/L (<34); BILIRUBIN,TOTAL 1.5 MG/DL (0.3-1.2); BLOOD UREA NITROGEN 144 MG/DL (9-23); CALCIUM LEVEL 7.1 MG/DL (8.5-10.1); CARBON DIOXIDE LEVEL < 10.0 MMOL/L (20-31); CHLORIDE LEVEL 110 MMOL/L (98-107); CPK CREATINE PHOSPHOKINASE 1606 U/L (34-145); CREATININE FOR GFR 5.25 MG/DL (0.55-1.30); FERRITIN 2047.2 NG/ML (7.3-270.7); GLUCOSE, FASTING 138 MG/DL (60-100); MAGNESIUM LEVEL 1.7 MG/DL (1.8-2.4); PHOSPHORUS LEVEL 3.8 MG/DL (2.5-4.9); POTASSIUM SERUM 3.4 MMOL/L (3.5-5.1); SODIUM LEVEL 139 MMOL/L (136-145); TOTAL PROTEIN 4.5 G/DL (5.7-8.2)
[2023-06-16] MEDS: VANCOMYCIN HCL 1,000 MG, VIAL MATE ADAPTER 1 EACH in D5W 250 ML IV ONE (06:27)
[2023-06-16] MEDS: HEPARIN SOD (PORCINE) 5000UNITS/ML 1ML VIAL/SYRINGE SQ SCH (06:27)
[2023-06-16 06:45] LABS: HEMATOCRIT 25.4 % (36.0-47.0); MEAN CORPUSCULAR HEMOGLOBIN 30.3 pg (27.0-33.0); MEAN CORPUSCULAR HGB CONC 35.4 g/dl (32.0-36.5); MEAN CORPUSCULAR VOLUME 85.5 fl (80.0-96.0); RED BLOOD COUNT 2.97 10^6/uL (4.00-5.40)
[2023-06-16 07:32] LABS: PLATELET COUNT, AUTOMATED 81 10^3/uL (150-450)
[2023-06-16 07:33] LABS: WHITE BLOOD COUNT 39.9 10^3/uL (4.0-10.0)
[2023-06-16 07:46] LABS: EOSINOPHILS 1 % (0-3); LYMPHOCYTES 1 % (16-44); MONOCYTES 16 % (0-5); NEUTROPHILS 77 % (28-66)
[2023-06-16 07:49] LABS: BURR CELLS 1+
[2023-06-16 07:50] LABS: PLATELET ESTIMATE DECREASED (NORMAL); TOXIC VACUOLATION 2+
[2023-06-16 07:51] LABS: DOHLE BODIES 1+
[2023-06-16 07:53] LABS: SCHISTOCYTES 1+
[2023-06-16] MEDS ORDERED: HEPARIN 1,000UNITS/ML 10ML VIAL (FOR RADIOLOGY & DIALYSIS ONLY) IV PRN (08:35)
[2023-06-16] MEDS ORDERED: SODIUM CHLORIDE 0.9% 1000ML IV PRN (08:35)
[2023-06-16] MEDS: FIDAXOMICIN 200 MG TAB (DIFICID) PO ONE (08:44)
[2023-06-16] MEDS: HYDROCORTISONE 100MG/2ML VIAL IV SCH (08:45)
[2023-06-16] MEDS: NS 1,000 ML IV ONE ×3 (09:07→12:10)
[2023-06-16 09:47] LABS: HEPATITIS B SURFACE ANTIBODY NEGATIVE (POSITIVE)
[2023-06-16 10:12] LABS: CLOSTRIDIUM DIFFICILE PCR POSITIVE (NEGATIVE)
[2023-06-16 10:20] LABS: HEPATITIS B CORE ANTIBODY IGM NEGATIVE (NEGATIVE); HEPATITIS C VIRUS ABY INDEX 0.06 INDEX (<0.8)
[2023-06-16] MEDS: HEPARIN 1,000UNITS/ML 10ML VIAL (FOR RADIOLOGY & DIALYSIS ONLY) XX SCH (10:46)
[2023-06-16 13:02] LABS: BASO # 0.1 10^3/uL (0.0-0.2); BASO % 0.2 % (0.0-1.0); EOS % 0.1 % (0.0-3.0); HEMATOCRIT 22.5 % (36.0-47.0); LYMPH # 1.5 10^3/uL (1.5-5.0); LYMPH % 3.8 % (24.0-44.0); MEAN CORPUSCULAR HEMOGLOBIN 30.1 pg (27.0-33.0); MEAN CORPUSCULAR HGB CONC 35.6 g/dl (32.0-36.5); MEAN CORPUSCULAR VOLUME 84.6 fl (80.0-96.0); MONO # 0.6 10^3/uL (0.0-0.8); MONO % 1.5 % (2.0-8.0); NEUTROPHILS # 35.7 10^3/uL (1.5-8.5); NEUTROPHILS % 92.5 % (36.0-66.0); RED BLOOD COUNT 2.66 10^6/uL (4.00-5.40)
[2023-06-16 13:06] LABS: PLATELET COUNT, AUTOMATED 62 10^3/uL (150-450); WHITE BLOOD COUNT 38.6 10^3/uL (4.0-10.0)
[2023-06-16 13:15] LABS: INR 3.72; PROTHROMBIN TIME 35.4 SECONDS (12.5-14.5)
[2023-06-16 13:16] LABS: FIBRINOGEN 439 MG/DL (268-480)
[2023-06-16 13:18] LABS: D-DIMER QUANT 3.74 ug/mL (<0.5)
[2023-06-16 13:49] LABS: PARTIAL THROMBOPLASTIN TIME > 240.0 SECONDS (24.8-34.2)
[2023-06-16] MEDS: CEFEPIME HCL 1 GM in D5W MINI-BAG PLUS 50 ML IV SCH (15:11)
[2023-06-16] MEDS: VASOPRESSIN INJ 20 UNITS in NS 499 ML IV SCH (15:11)
[2023-06-16] MEDS ORDERED: ALBUTEROL SULFATE 2.5MG/0.5ML INH NEB SOLN NEB PRN (15:40)
[2023-06-16] MEDS ORDERED: VANCOMYCIN HCL 500 MG in D5W MINI-BAG PLUS 100 ML IV SCH (16:00)
[2023-06-16 19:10] LABS: ALBUMIN 1.1 G/DL (3.2-5.2); BILIRUBIN,TOTAL 1.7 MG/DL (0.3-1.2); CALCIUM LEVEL 6.4 MG/DL (8.5-10.1); CREATININE FOR GFR 3.16 MG/DL (0.55-1.30); GLOMERULAR FILTRATION RATE 16.2 (>51); POTASSIUM SERUM 3.3 MMOL/L (3.5-5.1); TOTAL PROTEIN 3.8 G/DL (5.7-8.2)
[2023-06-16] MEDS ORDERED: CEFEPIME HCL 500 MG in D5W 50 ML IV SCH (20:00)
[2023-06-16] MEDS: FIDAXOMICIN 200 MG TAB (DIFICID) PO SCH (20:20)
[2023-06-17] VITALS (100 sets, daily range): BP systolic 70–178; BP diastolic 39–93; TEMP 97.7–100.4; O2SAT 89–100
[2023-06-17 05:08] LABS: MEAN CORPUSCULAR HEMOGLOBIN 29.9 pg (27.0-33.0); MEAN CORPUSCULAR HGB CONC 34.8 g/dl (32.0-36.5); MEAN CORPUSCULAR VOLUME 85.9 fl (80.0-96.0); RED BLOOD COUNT 2.34 10^6/uL (4.00-5.40)
[2023-06-17 05:12] LABS: HEMATOCRIT 20.1 % (36.0-47.0)
[2023-06-17 05:13] LABS: PLATELET COUNT, AUTOMATED 31 10^3/uL (150-450); WHITE BLOOD COUNT 40.1 10^3/uL (4.0-10.0)
[2023-06-17 05:19] LABS: INR 3.87; PARTIAL THROMBOPLASTIN TIME 48.7 SECONDS (24.8-34.2); PROTHROMBIN TIME 36.5 SECONDS (12.5-14.5)
[2023-06-17 05:35] LABS: VANCOMYCIN RANDOM 14.1 UG/ML
[2023-06-17 05:49] LABS: ATYPICAL LYMPH 1 % (0-5); LYMPHOCYTES 4 % (16-44); METAMYELOCYTES 1 % (0-0); MONOCYTES 5 % (0-5); NEUTROPHILS 86 % (28-66)
[2023-06-17 05:50] LABS: ALBUMIN 1.1 G/DL (3.2-5.2); ANISOCYTOSIS 1+; BILIRUBIN,TOTAL 1.7 MG/DL (0.3-1.2); CALCIUM LEVEL 6.5 MG/DL (8.5-10.1); CREATININE FOR GFR 3.36 MG/DL (0.55-1.30); DOHLE BODIES 2+; GLOMERULAR FILTRATION RATE 15.1 (>51); MAGNESIUM LEVEL 1.6 MG/DL (1.8-2.4); PLATELET ESTIMATE MARKED DECREASE (NORMAL); POTASSIUM SERUM 3.5 MMOL/L (3.5-5.1); TOXIC VACUOLATION 3+
[2023-06-17 05:54] LABS: BURR CELLS 1+
[2023-06-17] MEDS ORDERED: ISOVUE-370 76% 100ML VIAL As Ordered ONE (08:53)
[2023-06-17] MEDS ORDERED: VANCOMYCIN ORAL SOL 250MG/5ML ORAL SYRINGE PO SCH (09:00)
[2023-06-17] MEDS ORDERED: SODIUM CHLORIDE 0.9% 1000ML IV PRN (09:25)
[2023-06-17] MEDS ORDERED: HEPARIN 1,000UNITS/ML 10ML VIAL (FOR RADIOLOGY & DIALYSIS ONLY) IV PRN (09:25)
[2023-06-17] MEDS: PHYTONADIONE INJection 5 MG in NS 50 ML IV ONE (09:58)
[2023-06-17] MEDS: ONDANSETRON 4MG 2ML VIAL IV ONE (09:59)
[2023-06-17] MEDS: MAG SULF 1GM/100ML (MAG RUN) 1 GM in IV 1 EA IV ONE (09:59)
[2023-06-17] MEDS: KCL 20MEQ IN 100ML SWI (KRUN) 20 MEQ in IV 1 EA IV ONE (10:00)
[2023-06-17] MEDS: MEROPENEM INJ 1 GM in IV 1 EA IV ONE (10:30)
[2023-06-17 12:23] LABS: HEMATOCRIT 26.9 % (36.0-47.0); MEAN CORPUSCULAR HEMOGLOBIN 29.9 pg (27.0-33.0); MEAN CORPUSCULAR HGB CONC 34.6 g/dl (32.0-36.5); MEAN CORPUSCULAR VOLUME 86.5 fl (80.0-96.0); RED BLOOD COUNT 3.11 10^6/uL (4.00-5.40)
[2023-06-17 12:24] LABS: HEMOGLOBIN 9.3 g/dl (12.0-15.5); PLATELET COUNT, AUTOMATED 23 10^3/uL (150-450); WHITE BLOOD COUNT 38.8 10^3/uL (4.0-10.0)
[2023-06-17 12:57] LABS: PROCALCITONIN 17.78 ng/ml
[2023-06-17 14:17] LABS: ABG BASE EXCESS -13.6 (-2.0-2.0); ABG HCO3 10.7 MMOL/L (22.0-26.0); ABG O2 SATURATION 97.6 % (95.0-99.0); ABG PARTIAL PRESSURE CO2 21.2 mmHg (35.0-45.0); ABG PARTIAL PRESSURE O2 108.7 mmHg (75.0-100.0); ABG STANDARD HCO3 13.8 MMOL/L. (22.0-26.0); ABG TOTAL CO2 11.3 MMOL/L (22.0-29.0)
[2023-06-17] MEDS: SODIUM BICARBONATE 8.4% INJ 50ML SYRINGE IV STA (14:29)
[2023-06-17 15:06] LABS: C REACTIVE PROTEIN QUANTITATIV 29.6 MG/DL (<1.0)
[2023-06-17 15:35] LABS: ERYTHROCYTE SEDIMENTATION RATE 18 mm/hr (0-30)
[2023-06-17] MEDS: CLINDAMYCIN 900 MG in IV 1 EA IV SCH (18:42)
[2023-06-17] MEDS: MEROPENEM INJ 1 GM in IV 1 EA IV SCH (20:02)
[2023-06-17] MEDS: ACETAMINOPHEN *IV* 1,000 MG in IV 1 EA IV ONE (20:26)
[2023-06-17] MEDS: FIDAXOMICIN 200 MG TAB (DIFICID) PO SCH (21:09)
[2023-06-17] MEDS: IMMUNE GLOBULIN 10% 80 GM in IV 1 EA IV ONE (21:23)
[2023-06-17 21:26] LABS: BASO # 0.1 10^3/uL (0.0-0.2); BASO % 0.3 % (0.0-1.0); EOS % 0.1 % (0.0-3.0); HEMATOCRIT 25.8 % (36.0-47.0); HEMOGLOBIN 9.1 g/dl (12.0-15.5); LYMPH # 2.3 10^3/uL (1.5-5.0); LYMPH % 5.9 % (24.0-44.0); MEAN CORPUSCULAR HGB CONC 35.3 g/dl (32.0-36.5); MEAN CORPUSCULAR VOLUME 82.2 fl (80.0-96.0); MONO # 0.8 10^3/uL (0.0-0.8); MONO % 1.9 % (2.0-8.0); NEUTROPHILS # 31.9 10^3/uL (1.5-8.5); NEUTROPHILS % 81.4 % (36.0-66.0); PLATELET COUNT, AUTOMATED 39 10^3/uL (150-450); RED BLOOD COUNT 3.14 10^6/uL (4.00-5.40)
[2023-06-17 21:28] LABS: WHITE BLOOD COUNT 39.2 10^3/uL (4.0-10.0)
[2023-06-17 22:05] LABS: ALBUMIN 1.2 G/DL (3.2-5.2); BILIRUBIN,TOTAL 2.4 MG/DL (0.3-1.2); CALCIUM LEVEL 6.5 MG/DL (8.5-10.1); CREATININE FOR GFR 2.08 MG/DL (0.55-1.30); GLOMERULAR FILTRATION RATE 26.2 (>51); POTASSIUM SERUM 3.5 MMOL/L (3.5-5.1); TOTAL PROTEIN 4.5 G/DL (5.7-8.2)
[2023-06-18] VITALS (95 sets, daily range): BP systolic 76–154; BP diastolic 49–84; TEMP 97.2–98.7; O2SAT 90–100
[2023-06-18 06:18] LABS: ABG BASE EXCESS -7.9 (-2.0-2.0); ABG O2 SATURATION 97.7 % (95.0-99.0); ABG PARTIAL PRESSURE CO2 27.4 mmHg (35.0-45.0); ABG PARTIAL PRESSURE O2 111.8 mmHg (75.0-100.0); ABG TOTAL CO2 16.8 MMOL/L (22.0-29.0); ABG pH (ARTERIAL) 7.383 UNITS (7.350-7.450)
[2023-06-18 06:25] LABS: HEMATOCRIT 24.8 % (36.0-47.0); HEMOGLOBIN 8.6 g/dl (12.0-15.5); MEAN CORPUSCULAR HEMOGLOBIN 29.5 pg (27.0-33.0); MEAN CORPUSCULAR HGB CONC 34.7 g/dl (32.0-36.5); MEAN CORPUSCULAR VOLUME 84.9 fl (80.0-96.0); RED BLOOD COUNT 2.92 10^6/uL (4.00-5.40)
[2023-06-18 06:29] LABS: PLATELET COUNT, AUTOMATED 29 10^3/uL (150-450); WHITE BLOOD COUNT 37.4 10^3/uL (4.0-10.0)
[2023-06-18 06:41] LABS: C REACTIVE PROTEIN QUANTITATIV 21.2 MG/DL (<1.0)
[2023-06-18 06:55] LABS: PROCALCITONIN 11.89 ng/ml
[2023-06-18 06:57] LABS: BILIRUBIN,TOTAL 1.9 MG/DL (0.3-1.2); CALCIUM LEVEL 6.3 MG/DL (8.5-10.1); CREATININE FOR GFR 2.28 MG/DL (0.55-1.30); GLOMERULAR FILTRATION RATE 23.6 (>51); MAGNESIUM LEVEL 1.8 MG/DL (1.8-2.4); POTASSIUM SERUM 3.6 MMOL/L (3.5-5.1); TOTAL PROTEIN 6.1 G/DL (5.7-8.2)
[2023-06-18 07:05] LABS: INR 1.18; PROTHROMBIN TIME 14.7 SECONDS (12.5-14.5)
[2023-06-18 07:10] LABS: LYMPHOCYTES 5 % (16-44); MONOCYTES 2 % (0-5); MYELOCYTES 1 % (0-0); NEUTROPHILS 87 % (28-66)
[2023-06-18 07:13] LABS: ANISOCYTOSIS 1+; PLATELET ESTIMATE MARKED DECREASE (NORMAL); POIKILOCYTOSIS 1+
[2023-06-18 07:14] LABS: BURR CELLS 1+; DOHLE BODIES 1+; POLYCHROMASIA 1+; SCHISTOCYTES 1+
[2023-06-18 07:25] LABS: ERYTHROCYTE SEDIMENTATION RATE 51 mm/hr (0-30)
[2023-06-18] MEDS ORDERED: HEPARIN 1,000UNITS/ML 10ML VIAL (FOR RADIOLOGY & DIALYSIS ONLY) IV PRN (09:45)
[2023-06-18] MEDS: ONDANSETRON 4MG 2ML VIAL IV ONE (12:56)
[2023-06-18] MEDS: MEROPENEM INJ 1 GM in IV 1 EA IV SCH (13:57)
[2023-06-18] MEDS: IMMUNE GLOBULIN 10% 40 GM in IV 1 EA IV SCH (18:05)
[2023-06-18 18:12] LABS: IONIZED CALCIUM 4.3 MG/DL (4.5-5.3)
[2023-06-18 18:18] LABS: HEMATOCRIT 24.6 % (36.0-47.0); HEMOGLOBIN 8.7 g/dl (12.0-15.5); MEAN CORPUSCULAR HEMOGLOBIN 29.8 pg (27.0-33.0); MEAN CORPUSCULAR HGB CONC 35.4 g/dl (32.0-36.5); MEAN CORPUSCULAR VOLUME 84.2 fl (80.0-96.0); RED BLOOD COUNT 2.92 10^6/uL (4.00-5.40)
[2023-06-18 18:26] LABS: PLATELET COUNT, AUTOMATED 22 10^3/uL (150-450); WHITE BLOOD COUNT 32.1 10^3/uL (4.0-10.0)
[2023-06-18 18:43] LABS: CALCIUM LEVEL 6.6 MG/DL (8.5-10.1); CREATININE FOR GFR 1.6 MG/DL (0.55-1.30); GLOMERULAR FILTRATION RATE 35.5 (>51); MAGNESIUM LEVEL 1.8 MG/DL (1.8-2.4); PHOSPHORUS LEVEL 4.7 MG/DL (2.5-4.9); POTASSIUM SERUM 3.5 MMOL/L (3.5-5.1)
[2023-06-18] MEDS: MAG SULF 1GM/100ML (MAG RUN) 1 GM in IV 1 EA IV ONE (19:54)
[2023-06-18] MEDS: KCL 20MEQ IN 100ML SWI (KRUN) 20 MEQ in IV 1 EA IV SCH (21:13)
[2023-06-18] MEDS: ACETAMINOPHEN 325MG/10.15ML UDC GT PRN (21:20)
[2023-06-18] MEDS: CALCIUM GLUCONATE 1,000 MG in NS 100 ML IV SCH (23:17)
[2023-06-19] VITALS (96 sets, daily range): BP systolic 80–145; BP diastolic 48–90; TEMP 97.2–98.6; O2SAT 87–100
[2023-06-19 00:38] LABS: IONIZED CALCIUM 4.5 MG/DL (4.5-5.3)
[2023-06-19 00:44] LABS: HEMATOCRIT 23.7 % (36.0-47.0); HEMOGLOBIN 8.3 g/dl (12.0-15.5); MEAN CORPUSCULAR HEMOGLOBIN 29.5 pg (27.0-33.0); MEAN CORPUSCULAR VOLUME 84.3 fl (80.0-96.0); RED BLOOD COUNT 2.81 10^6/uL (4.00-5.40)
[2023-06-19 00:45] LABS: PLATELET COUNT, AUTOMATED 49 10^3/uL (150-450); WHITE BLOOD COUNT 30.8 10^3/uL (4.0-10.0)
[2023-06-19 01:08] LABS: CALCIUM LEVEL 7.2 MG/DL (8.5-10.1); CREATININE FOR GFR 1.26 MG/DL (0.55-1.30); GLOMERULAR FILTRATION RATE 46.8 (>51); MAGNESIUM LEVEL 1.9 MG/DL (1.8-2.4); PHOSPHORUS LEVEL 4.7 MG/DL (2.5-4.9); POTASSIUM SERUM 3.8 MMOL/L (3.5-5.1)
[2023-06-19] MEDS: MAG SULF 1GM/100ML (MAG RUN) 1 GM in IV 1 EA IV ONE ×2 (01:40→13:33)
[2023-06-19] MEDS: KCL 20MEQ IN 100ML SWI (KRUN) 20 MEQ in IV 1 EA IV ONE ×4 (02:18→19:31)
[2023-06-19] MEDS: CALCIUM GLUCONATE 1,000 MG in NS 100 ML IV ONE (03:01)
[2023-06-19 06:31] LABS: IONIZED CALCIUM 4.8 MG/DL (4.5-5.3)
[2023-06-19 06:38] LABS: HEMATOCRIT 23.5 % (36.0-47.0); HEMOGLOBIN 8.1 g/dl (12.0-15.5); MEAN CORPUSCULAR HGB CONC 34.5 g/dl (32.0-36.5); MEAN CORPUSCULAR VOLUME 84.2 fl (80.0-96.0); RED BLOOD COUNT 2.79 10^6/uL (4.00-5.40); WHITE BLOOD COUNT 27.8 10^3/uL (4.0-10.0)
[2023-06-19 06:45] LABS: PLATELET COUNT, AUTOMATED 42 10^3/uL (150-450)
[2023-06-19 07:04] LABS: BILIRUBIN,TOTAL 1.4 MG/DL (0.3-1.2); CALCIUM LEVEL 7.7 MG/DL (8.5-10.1); CREATININE FOR GFR 1.06 MG/DL (0.55-1.30); GLOMERULAR FILTRATION RATE 57.1 (>51); MAGNESIUM LEVEL 2.1 MG/DL (1.8-2.4); PHOSPHORUS LEVEL 4.6 MG/DL (2.5-4.9); POTASSIUM SERUM 3.8 MMOL/L (3.5-5.1); TOTAL PROTEIN 6.5 G/DL (5.7-8.2)
[2023-06-19 07:09] LABS: LYMPHOCYTES 7 % (16-44); MONOCYTES 3 % (0-5); MYELOCYTES 3 % (0-0); NEUTROPHILS 84 % (28-66)
[2023-06-19 07:11] LABS: ANISOCYTOSIS 1+; POLYCHROMASIA 1+
[2023-06-19 07:12] LABS: DOHLE BODIES 1+; POIKILOCYTOSIS 1+; SCHISTOCYTES 1+
[2023-06-19 07:15] LABS: PLATELET ESTIMATE MARKED DECREASE (NORMAL)
[2023-06-19 11:54] LABS: IONIZED CALCIUM 4.7 MG/DL (4.5-5.3)
[2023-06-19] MEDS: NYSTATIN 100,000 UNITS/GM TOPICAL PWD 15GM TOP SCH (12:00)
[2023-06-19 12:11] LABS: HEMATOCRIT 22.5 % (36.0-47.0); HEMOGLOBIN 7.8 g/dl (12.0-15.5); MEAN CORPUSCULAR HEMOGLOBIN 29.5 pg (27.0-33.0); MEAN CORPUSCULAR HGB CONC 34.7 g/dl (32.0-36.5); MEAN CORPUSCULAR VOLUME 85.2 fl (80.0-96.0); RED BLOOD COUNT 2.64 10^6/uL (4.00-5.40); WHITE BLOOD COUNT 26.5 10^3/uL (4.0-10.0)
[2023-06-19 12:12] LABS: PLATELET COUNT, AUTOMATED 38 10^3/uL (150-450)
[2023-06-19 12:33] LABS: BLOOD UREA NITROGEN 25 MG/DL (9-23); CALCIUM LEVEL 7.8 MG/DL (8.5-10.1); CARBON DIOXIDE LEVEL 22 MMOL/L (20-31); CHLORIDE LEVEL 105 MMOL/L (98-107); CREATININE FOR GFR 0.91 MG/DL (0.55-1.30); GLOMERULAR FILTRATION RATE > 60.0 (>51); GLUCOSE, FASTING 147 MG/DL (60-100); MAGNESIUM LEVEL 1.9 MG/DL (1.8-2.4); PHOSPHORUS LEVEL 4.4 MG/DL (2.5-4.9); POTASSIUM SERUM 3.8 MMOL/L (3.5-5.1); SODIUM LEVEL 135 MMOL/L (136-145)
[2023-06-19 17:59] LABS: IONIZED CALCIUM 4.7 MG/DL (4.5-5.3)
[2023-06-19 18:05] LABS: HEMATOCRIT 25.3 % (36.0-47.0); HEMOGLOBIN 8.6 g/dl (12.0-15.5); MEAN CORPUSCULAR HEMOGLOBIN 29.2 pg (27.0-33.0); MEAN CORPUSCULAR VOLUME 85.8 fl (80.0-96.0); RED BLOOD COUNT 2.95 10^6/uL (4.00-5.40); WHITE BLOOD COUNT 24.9 10^3/uL (4.0-10.0)
[2023-06-19 18:21] LABS: PLATELET COUNT, AUTOMATED 37 10^3/uL (150-450)
[2023-06-19 18:34] LABS: ALBUMIN 1.1 G/DL (3.2-5.2); ALKALINE PHOSPHATASE 148 U/L (46-116); ALT/SGPT 43 U/L (7.0-40); AST/SGOT 15 U/L (<34); BILIRUBIN,TOTAL 1.1 MG/DL (0.3-1.2); BLOOD UREA NITROGEN 22 MG/DL (9-23); CALCIUM LEVEL 7.7 MG/DL (8.5-10.1); CARBON DIOXIDE LEVEL 21 MMOL/L (20-31); CHLORIDE LEVEL 104 MMOL/L (98-107); CREATININE FOR GFR 0.82 MG/DL (0.55-1.30); GLOMERULAR FILTRATION RATE > 60.0 (>51); GLUCOSE, FASTING 145 MG/DL (60-100); POTASSIUM SERUM 3.9 MMOL/L (3.5-5.1); SODIUM LEVEL 133 MMOL/L (136-145); TOTAL PROTEIN 6.4 G/DL (5.7-8.2)
[2023-06-20] VITALS (86 sets, daily range): BP systolic 70–150; BP diastolic 44–88; TEMP 97.3–99.2; O2SAT 87–100
[2023-06-20 00:22] LABS: IONIZED CALCIUM 4.7 MG/DL (4.5-5.3)
[2023-06-20 00:32] LABS: HEMATOCRIT 25.1 % (36.0-47.0); HEMOGLOBIN 8.5 g/dl (12.0-15.5); MEAN CORPUSCULAR HGB CONC 33.9 g/dl (32.0-36.5); MEAN CORPUSCULAR VOLUME 85.7 fl (80.0-96.0); RED BLOOD COUNT 2.93 10^6/uL (4.00-5.40); WHITE BLOOD COUNT 23.6 10^3/uL (4.0-10.0)
[2023-06-20 00:35] LABS: PLATELET COUNT, AUTOMATED 40 10^3/uL (150-450)
[2023-06-20 00:54] LABS: ALBUMIN 0.8 G/DL (3.2-5.2); ALKALINE PHOSPHATASE 135 U/L (46-116); ALT/SGPT 44 U/L (7.0-40); AST/SGOT 17 U/L (<34); BLOOD UREA NITROGEN 23 MG/DL (9-23); CALCIUM LEVEL 7.4 MG/DL (8.5-10.1); CARBON DIOXIDE LEVEL 22 MMOL/L (20-31); CHLORIDE LEVEL 105 MMOL/L (98-107); CREATININE FOR GFR 0.72 MG/DL (0.55-1.30); GLOMERULAR FILTRATION RATE > 60.0 (>51); GLUCOSE, FASTING 142 MG/DL (60-100); MAGNESIUM LEVEL 1.9 MG/DL (1.8-2.4); PHOSPHORUS LEVEL 3.7 MG/DL (2.5-4.9); SODIUM LEVEL 134 MMOL/L (136-145); TOTAL PROTEIN 6.7 G/DL (5.7-8.2)
[2023-06-20] MEDS: MAG SULF 1GM/100ML (MAG RUN) 1 GM in IV 1 EA IV ONE (02:00)
[2023-06-20 06:12] LABS: IONIZED CALCIUM 4.8 MG/DL (4.5-5.3)
[2023-06-20 06:24] LABS: HEMATOCRIT 26.2 % (36.0-47.0); HEMOGLOBIN 8.9 g/dl (12.0-15.5); MEAN CORPUSCULAR HEMOGLOBIN 29.4 pg (27.0-33.0); MEAN CORPUSCULAR VOLUME 86.5 fl (80.0-96.0); RED BLOOD COUNT 3.03 10^6/uL (4.00-5.40); WHITE BLOOD COUNT 22.2 10^3/uL (4.0-10.0)
[2023-06-20 06:30] LABS: PLATELET COUNT, AUTOMATED 35 10^3/uL (150-450)
[2023-06-20 06:49] LABS: ALBUMIN 0.8 G/DL (3.2-5.2); ALKALINE PHOSPHATASE 137 U/L (46-116); ALT/SGPT 42 U/L (7.0-40); AST/SGOT 15 U/L (<34); BLOOD UREA NITROGEN 22 MG/DL (9-23); CALCIUM LEVEL 7.3 MG/DL (8.5-10.1); CARBON DIOXIDE LEVEL 22 MMOL/L (20-31); CHLORIDE LEVEL 104 MMOL/L (98-107); CREATININE FOR GFR 0.67 MG/DL (0.55-1.30); GLOMERULAR FILTRATION RATE > 60.0 (>51); GLUCOSE, FASTING 145 MG/DL (60-100); PHOSPHORUS LEVEL 3.7 MG/DL (2.5-4.9); POTASSIUM SERUM 3.8 MMOL/L (3.5-5.1); SODIUM LEVEL 133 MMOL/L (136-145); TOTAL PROTEIN 6.5 G/DL (5.7-8.2)
[2023-06-20 06:56] LABS: PROCALCITONIN 1.39 ng/ml
[2023-06-20 07:35] LABS: ANISOCYTOSIS 2+; LYMPHOCYTES 3 % (16-44); MONOCYTES 2 % (0-5); NEUTROPHILS 92 % (28-66); PLATELET ESTIMATE MARKED DECREASE (NORMAL); POIKILOCYTOSIS 1+; POLYCHROMASIA 1+; TARGET CELLS 2+
[2023-06-20 07:36] LABS: HYPOCHROMASIA 1+
[2023-06-20] MEDS: KCL 20MEQ IN 100ML SWI (KRUN) 20 MEQ in IV 1 EA IV ONE (08:04)
[2023-06-20] MEDS: HYDROCORTISONE 100MG/2ML VIAL IV SCH (09:08)
[2023-06-20] MEDS: HEPARIN 1,000UNITS/ML 10ML VIAL (FOR RADIOLOGY & DIALYSIS ONLY) IV PRN ×2 (10:20)
[2023-06-20] MEDS: SODIUM CHLORIDE 0.9% INJ 10 ML SYR IV PRN ×2 (10:21)
[2023-06-20] MEDS: MIDODRINE 5 MG TAB PO SCH (12:05)
[2023-06-20 12:21] LABS: IONIZED CALCIUM 4.7 MG/DL (4.5-5.3)
[2023-06-20 12:35] LABS: HEMATOCRIT 25.9 % (36.0-47.0); HEMOGLOBIN 8.6 g/dl (12.0-15.5); MEAN CORPUSCULAR HEMOGLOBIN 29.2 pg (27.0-33.0); MEAN CORPUSCULAR HGB CONC 33.2 g/dl (32.0-36.5); MEAN CORPUSCULAR VOLUME 87.8 fl (80.0-96.0); PLATELET COUNT, AUTOMATED 34 10^3/uL (150-450); RED BLOOD COUNT 2.95 10^6/uL (4.00-5.40)
[2023-06-20 13:08] LABS: ALBUMIN 0.9 G/DL (3.2-5.2); ALKALINE PHOSPHATASE 140 U/L (46-116); ALT/SGPT 37 U/L (7.0-40); AST/SGOT 15 U/L (<34); BLOOD UREA NITROGEN 20 MG/DL (9-23); CALCIUM LEVEL 7.2 MG/DL (8.5-10.1); CARBON DIOXIDE LEVEL 22 MMOL/L (20-31); CHLORIDE LEVEL 105 MMOL/L (98-107); CREATININE FOR GFR 0.69 MG/DL (0.55-1.30); GLOMERULAR FILTRATION RATE > 60.0 (>51); GLUCOSE, FASTING 154 MG/DL (60-100); POTASSIUM SERUM 4.1 MMOL/L (3.5-5.1); SODIUM LEVEL 133 MMOL/L (136-145); TOTAL PROTEIN 6.1 G/DL (5.7-8.2)
[2023-06-20] MEDS ORDERED: MIDAZOLAM INJ 2MG/2ML VIAL IV STA (14:45)
[2023-06-20] MEDS: cefTRIAXone SOD 2 GM in D5W MINI-BAG PLUS 50 ML IV SCH (20:08)
[2023-06-21] VITALS (45 sets, daily range): BP systolic 92–159; BP diastolic 54–77; TEMP 97.6–98.4; O2SAT 91–98
[2023-06-21 05:31] LABS: HEMATOCRIT 26.6 % (36.0-47.0); HEMOGLOBIN 8.6 g/dl (12.0-15.5); MEAN CORPUSCULAR HEMOGLOBIN 29.2 pg (27.0-33.0); MEAN CORPUSCULAR HGB CONC 32.3 g/dl (32.0-36.5); MEAN CORPUSCULAR VOLUME 90.2 fl (80.0-96.0); RED BLOOD COUNT 2.95 10^6/uL (4.00-5.40); WHITE BLOOD COUNT 21.1 10^3/uL (4.0-10.0)
[2023-06-21 05:38] LABS: PLATELET COUNT, AUTOMATED 56 10^3/uL (150-450)
[2023-06-21 05:41] LABS: INR 1.21
[2023-06-21 05:50] LABS: BILIRUBIN,TOTAL 0.8 MG/DL (0.3-1.2); CALCIUM LEVEL 7.1 MG/DL (8.5-10.1); CREATININE FOR GFR 1.08 MG/DL (0.55-1.30); GLOMERULAR FILTRATION RATE 55.9 (>51); MAGNESIUM LEVEL 2.1 MG/DL (1.8-2.4); POTASSIUM SERUM 3.8 MMOL/L (3.5-5.1); TOTAL PROTEIN 6.1 G/DL (5.7-8.2)
[2023-06-21 06:18] LABS: ATYPICAL LYMPH 2 % (0-5); LYMPHOCYTES 5 % (16-44); METAMYELOCYTES 1 % (0-0); MONOCYTES 3 % (0-5); NEUTROPHILS 87 % (28-66)
[2023-06-21 06:19] LABS: PLATELET ESTIMATE DECREASED (NORMAL); POIKILOCYTOSIS 1+
[2023-06-21 06:20] LABS: ANISOCYTOSIS 1+; HYPOCHROMASIA 1+; POLYCHROMASIA 1+
[2023-06-21] MEDS ORDERED: MEROPENEM INJ 1 GM in IV 1 EA IV SCH (16:00)
[2023-06-22] VITALS (30 sets, daily range): BP systolic 70–123; BP diastolic 48–73; TEMP 96–98; O2SAT 95–99
[2023-06-22 04:35] LABS: HEMATOCRIT 26.1 % (36.0-47.0); HEMOGLOBIN 8.4 g/dl (12.0-15.5); MEAN CORPUSCULAR HEMOGLOBIN 29.2 pg (27.0-33.0); MEAN CORPUSCULAR HGB CONC 32.2 g/dl (32.0-36.5); MEAN CORPUSCULAR VOLUME 90.6 fl (80.0-96.0); RED BLOOD COUNT 2.88 10^6/uL (4.00-5.40); WHITE BLOOD COUNT 17.5 10^3/uL (4.0-10.0)
[2023-06-22 04:36] LABS: PLATELET COUNT, AUTOMATED 80 10^3/uL (150-450)
[2023-06-22 04:48] LABS: INR 1.17; PROTHROMBIN TIME 14.6 SECONDS (12.5-14.5)
[2023-06-22 04:59] LABS: ATYPICAL LYMPH 1 % (0-5); LYMPHOCYTES 7 % (16-44); MONOCYTES 3 % (0-5); NEUTROPHILS 85 % (28-66)
[2023-06-22 05:00] LABS: PLATELET ESTIMATE DECREASED (NORMAL)
[2023-06-22 05:02] LABS: ANISOCYTOSIS 1+; HYPOCHROMASIA 1+
[2023-06-22 05:03] LABS: POIKILOCYTOSIS 1+
[2023-06-22 05:08] LABS: BILIRUBIN,TOTAL 0.6 MG/DL (0.3-1.2); CALCIUM LEVEL 6.5 MG/DL (8.5-10.1); CREATININE FOR GFR 1.48 MG/DL (0.55-1.30); GLOMERULAR FILTRATION RATE 38.8 (>51); POTASSIUM SERUM 3.3 MMOL/L (3.5-5.1); TOTAL PROTEIN 5.6 G/DL (5.7-8.2)
[2023-06-22] MEDS ORDERED: GLUCAGON INJ 1MG VIAL SC PRN ×2 (05:20)
[2023-06-22] MEDS ORDERED: DEXTROSE 50% 50ML SYRINGE IV PRN ×2 (05:20)
[2023-06-22] MEDS ORDERED: GLUCOSE 4GM CHEW TABLET PO PRN ×2 (05:20)
[2023-06-22] MEDS: KCL 20MEQ IN 100ML SWI (KRUN) 20 MEQ in IV 1 EA IV SCH (05:37)
[2023-06-22] MEDS: HumuLIN R (REGULAR) INSULIN (NovoLIN R) **100U/ML** PER UNIT IV STA (05:38)
[2023-06-22] MEDS: INSULIN LISPRO (NovoLOG) PER UNIT SC SCH (06:47)
[2023-06-22] MEDS ORDERED: HumuLIN R (REGULAR) INSULIN (NovoLIN R) **100U/ML** PER UNIT IV STA (06:56)
[2023-06-22] MEDS ORDERED: HEPARIN 1,000UNITS/ML 10ML VIAL (FOR RADIOLOGY & DIALYSIS ONLY) IV PRN (07:05)
[2023-06-22] MEDS ORDERED: SODIUM CHLORIDE 0.9% 1000ML IV PRN (07:05)
[2023-06-22] MEDS ORDERED: HEPARIN 1,000UNITS/ML 10ML VIAL (FOR RADIOLOGY & DIALYSIS ONLY) XX SCH (07:05)
[2023-06-22] MEDS ORDERED: INSULIN LISPRO (NovoLOG) PER UNIT SC SCH ×2 (07:30→21:00)
[2023-06-22] MEDS ORDERED: SILVER SULFADIAZINE 1% CR 50 GM JAR TOP SCH (09:00)
[2023-06-22] MEDS: SILVER SULFADIAZINE 1% CR 400 GM JAR TOP SCH (12:00)
[2023-06-22] MEDS: MORPHINE 2 MG/ML 1ML VIAL IV ONE (15:35)
[2023-06-22] MEDS: ONDANSETRON 4MG 2ML VIAL IV PRN (15:36)
[2023-06-22] MEDS: LEVEMIR (INSULIN DETEMIR) 1 UNITS/0.01ML SC SCH (20:38)
[2023-06-23] VITALS (102 sets, daily range): BP systolic 53–221; BP diastolic 29–117; TEMP 97.8–98.6; O2SAT 62–100
[2023-06-23 04:49] LABS: HEMATOCRIT 25.9 % (36.0-47.0); HEMOGLOBIN 8.4 g/dl (12.0-15.5); MEAN CORPUSCULAR HEMOGLOBIN 29.7 pg (27.0-33.0); MEAN CORPUSCULAR HGB CONC 32.4 g/dl (32.0-36.5); MEAN CORPUSCULAR VOLUME 91.5 fl (80.0-96.0); PLATELET COUNT, AUTOMATED 110 10^3/uL (150-450); RED BLOOD COUNT 2.83 10^6/uL (4.00-5.40); WHITE BLOOD COUNT 15.9 10^3/uL (4.0-10.0)
[2023-06-23 05:27] LABS: ALBUMIN 0.9 G/DL (3.2-5.2); BILIRUBIN,TOTAL 0.5 MG/DL (0.3-1.2); CALCIUM LEVEL 6.6 MG/DL (8.5-10.1); CREATININE FOR GFR 1.83 MG/DL (0.55-1.30); GLOMERULAR FILTRATION RATE 30.4 (>51); PHOSPHORUS LEVEL 6.6 MG/DL (2.5-4.9); POTASSIUM SERUM 3.6 MMOL/L (3.5-5.1); TOTAL PROTEIN 5.3 G/DL (5.7-8.2)
[2023-06-23 05:34] LABS: EOSINOPHILS 2 % (0-3); LYMPHOCYTES 7 % (16-44); METAMYELOCYTES 1 % (0-0); MONOCYTES 3 % (0-5); NEUTROPHILS 86 % (28-66)
[2023-06-23 05:35] LABS: HYPOCHROMASIA 1+; PLATELET ESTIMATE DECREASED (NORMAL); POLYCHROMASIA 1+
[2023-06-23] MEDS ORDERED: HEPARIN 1,000UNITS/ML 10ML VIAL (FOR RADIOLOGY & DIALYSIS ONLY) IV PRN (06:25)
[2023-06-23] MEDS ORDERED: SODIUM CHLORIDE 0.9% 1000ML IV PRN (06:25)
[2023-06-23] MEDS ORDERED: HEPARIN 1,000UNITS/ML 10ML VIAL (FOR RADIOLOGY & DIALYSIS ONLY) XX SCH (06:25)
[2023-06-23] MEDS ORDERED: VARIBAR PUDDING 40% w/v 230ML TUBE As Ordered ONE (11:06)
[2023-06-23] MEDS ORDERED: VARIBAR NECTAR 40% w/v 240ML SUSP BTL As Ordered ONE (11:06)
[2023-06-23] MEDS ORDERED: BARIUM SULFATE 700 MG TABLET (E-Z-DISK) As Ordered ONE (11:07)
[2023-06-23] MEDS ORDERED: E-Z-PAQUE 96% w/w SUSP 176GM BTL As Ordered ONE (11:07)
[2023-06-23] MEDS ORDERED: ATROPINE SULF 1MG/10ML SYRINGE As Ordered ONE (13:55)
[2023-06-23] MEDS: ATROPINE SULF 1MG/10ML SYRINGE IV STA (13:58)
[2023-06-23] MEDS ORDERED: EPINEPHrine INJ 1 MG/ML 1ML AMP As Ordered ONE (13:59)
[2023-06-23] MEDS: EPINEPHrine 1MG/10ML SYRINGE 1.5IN IV STA (14:00)
[2023-06-23] MEDS ORDERED: SODIUM BICARBONATE 8.4% INJ 50ML SYRINGE As Ordered ONE (14:14)
[2023-06-23] MEDS: SODIUM BICARBONATE 8.4% INJ 50ML SYRINGE IV STA (14:15)
[2023-06-23 14:49] LABS: VENOUS BASE EXCESS -6.6 (-2.0-2.0); VENOUS HCO3 20.2 MMOL/L (23.0-27.0); VENOUS O2 SATURATION 88.9 % (60.0-80.0); VENOUS PARTIAL PRESSURE CO2 46.7 mmHg (38.0-50.0); VENOUS PARTIAL PRESSURE O2 59.3 mmHg (30.0-50.0); VENOUS PH 7.254 UNITS (7.330-7.430); VENOUS STANDARD HCO3 18.9 MMOL/L; VENOUS TOTAL CO2 21.6 MMOL/L (24.0-28.0)
[2023-06-23 14:54] LABS: HEMATOCRIT 25.3 % (36.0-47.0); HEMOGLOBIN 8.2 g/dl (12.0-15.5); MEAN CORPUSCULAR HEMOGLOBIN 29.9 pg (27.0-33.0); MEAN CORPUSCULAR HGB CONC 32.4 g/dl (32.0-36.5); MEAN CORPUSCULAR VOLUME 92.3 fl (80.0-96.0); RED BLOOD COUNT 2.74 10^6/uL (4.00-5.40); WHITE BLOOD COUNT 20.6 10^3/uL (4.0-10.0)
[2023-06-23 15:11] LABS: PLATELET COUNT, AUTOMATED 78 10^3/uL (150-450)
[2023-06-23 15:18] LABS: CK-MB VALUE MASS 1.5 NG/ML (<3.6); MB/CK RELATIVE INDEX 4.16 (< OR =4)
[2023-06-23 15:20] LABS: ALBUMIN 0.9 G/DL (3.2-5.2); BILIRUBIN,TOTAL 0.6 MG/DL (0.3-1.2); CALCIUM LEVEL 6.3 MG/DL (8.5-10.1); CREATININE FOR GFR 1.65 MG/DL (0.55-1.30); GLOMERULAR FILTRATION RATE 34.3 (>51); POTASSIUM SERUM 3.2 MMOL/L (3.5-5.1); TOTAL PROTEIN 4.6 G/DL (5.7-8.2)
[2023-06-23] MEDS: LEVEMIR (INSULIN DETEMIR) 1 UNITS/0.01ML SC SCH (20:38)
[2023-06-23] MEDS ORDERED: KCL 10MEQ/100ML SWI (KRUN) 10 MEQ in IV 1 EA IV SCH (23:00)
[2023-06-23] MEDS: KCL 20MEQ IN 100ML SWI (KRUN) 20 MEQ in IV 1 EA IV ONE (23:01)
[2023-06-24] VITALS (56 sets, daily range): BP systolic 84–182; BP diastolic 51–95; TEMP 97.7–98.9; O2SAT 85–100
[2023-06-24 05:18] LABS: BASO % 0.1 % (0.0-1.0); EOS # 0.2 10^3/uL (0.0-0.5); EOS % 0.7 % (0.0-3.0); HEMOGLOBIN 8.2 g/dl (12.0-15.5); LYMPH # 1.5 10^3/uL (1.5-5.0); LYMPH % 6.8 % (24.0-44.0); MEAN CORPUSCULAR HEMOGLOBIN 29.9 pg (27.0-33.0); MEAN CORPUSCULAR HGB CONC 32.8 g/dl (32.0-36.5); MEAN CORPUSCULAR VOLUME 91.2 fl (80.0-96.0); MONO # 0.5 10^3/uL (0.0-0.8); MONO % 2.1 % (2.0-8.0); NEUTROPHILS % 87.9 % (36.0-66.0); PLATELET COUNT, AUTOMATED 112 10^3/uL (150-450); RED BLOOD COUNT 2.74 10^6/uL (4.00-5.40); WHITE BLOOD COUNT 22.7 10^3/uL (4.0-10.0)
[2023-06-24 05:47] LABS: BILIRUBIN,TOTAL 0.7 MG/DL (0.3-1.2); CALCIUM LEVEL 6.5 MG/DL (8.5-10.1); CREATININE FOR GFR 1.89 MG/DL (0.55-1.30); GLOMERULAR FILTRATION RATE 29.3 (>51); PHOSPHORUS LEVEL 6.5 MG/DL (2.5-4.9); POTASSIUM SERUM 3.9 MMOL/L (3.5-5.1); TOTAL PROTEIN 5.2 G/DL (5.7-8.2)
[2023-06-24] MEDS: HEPARIN SOD (PORCINE) 5000UNITS/ML 1ML VIAL/SYRINGE SQ SCH (21:39)
[2023-06-25] VITALS (32 sets, daily range): BP systolic 91–131; BP diastolic 50–68; TEMP 97.9–98.6; O2SAT 88–100
[2023-06-25 05:56] LABS: BASO % 0.1 % (0.0-1.0); EOS # 0.2 10^3/uL (0.0-0.5); EOS % 0.8 % (0.0-3.0); HEMATOCRIT 22.7 % (36.0-47.0); HEMOGLOBIN 7.3 g/dl (12.0-15.5); LYMPH # 1.3 10^3/uL (1.5-5.0); LYMPH % 5.7 % (24.0-44.0); MEAN CORPUSCULAR HGB CONC 32.2 g/dl (32.0-36.5); MEAN CORPUSCULAR VOLUME 93.4 fl (80.0-96.0); MONO # 0.5 10^3/uL (0.0-0.8); MONO % 2.4 % (2.0-8.0); NEUTROPHILS # 20.2 10^3/uL (1.5-8.5); PLATELET COUNT, AUTOMATED 124 10^3/uL (150-450); RED BLOOD COUNT 2.43 10^6/uL (4.00-5.40); WHITE BLOOD COUNT 22.5 10^3/uL (4.0-10.0)
[2023-06-25] MEDS ORDERED: SODIUM CHLORIDE 0.9% 1000ML IV PRN (06:00)
[2023-06-25] MEDS ORDERED: HEPARIN 1,000UNITS/ML 10ML VIAL (FOR RADIOLOGY & DIALYSIS ONLY) IV PRN (06:00)
[2023-06-25 06:23] LABS: ALBUMIN 0.9 G/DL (3.2-5.2); BILIRUBIN,TOTAL 0.7 MG/DL (0.3-1.2); CALCIUM LEVEL 6.6 MG/DL (8.5-10.1); CREATININE FOR GFR 2.1 MG/DL (0.55-1.30); GLOMERULAR FILTRATION RATE 25.9 (>51); MAGNESIUM LEVEL 1.9 MG/DL (1.8-2.4); POTASSIUM SERUM 3.6 MMOL/L (3.5-5.1); TOTAL PROTEIN 4.9 G/DL (5.7-8.2)
[2023-06-25] MEDS: LEVEMIR (INSULIN DETEMIR) 1 UNITS/0.01ML SC SCH ×2 (09:00→21:21)
[2023-06-25] MEDS: (RENVELA) SEVELAMER **CARBONate** 800 MG TAB PO SCH (18:00)
[2023-06-26] VITALS (29 sets, daily range): BP systolic 84–152; BP diastolic 46–69; TEMP 98.4–99.4; O2SAT 88–100
[2023-06-26 04:15] LABS: BASO % 0.2 % (0.0-1.0); EOS # 0.1 10^3/uL (0.0-0.5); EOS % 0.5 % (0.0-3.0); HEMATOCRIT 21.5 % (36.0-47.0); LYMPH # 1.1 10^3/uL (1.5-5.0); LYMPH % 5.4 % (24.0-44.0); MEAN CORPUSCULAR HEMOGLOBIN 30.1 pg (27.0-33.0); MEAN CORPUSCULAR HGB CONC 32.1 g/dl (32.0-36.5); MEAN CORPUSCULAR VOLUME 93.9 fl (80.0-96.0); MONO # 0.7 10^3/uL (0.0-0.8); MONO % 3.6 % (2.0-8.0); NEUTROPHILS # 17.7 10^3/uL (1.5-8.5); NEUTROPHILS % 89.4 % (36.0-66.0); PLATELET COUNT, AUTOMATED 157 10^3/uL (150-450); RED BLOOD COUNT 2.29 10^6/uL (4.00-5.40); WHITE BLOOD COUNT 19.8 10^3/uL (4.0-10.0)
[2023-06-26 04:40] LABS: C REACTIVE PROTEIN QUANTITATIV 9.9 MG/DL (<1.0)
[2023-06-26 04:42] LABS: CALCIUM LEVEL 6.7 MG/DL (8.5-10.1); CREATININE FOR GFR 1.49 MG/DL (0.55-1.30); GLOMERULAR FILTRATION RATE 38.5 (>51); POTASSIUM SERUM 3.6 MMOL/L (3.5-5.1)
[2023-06-26 04:49] LABS: PROCALCITONIN 2.02 ng/ml
[2023-06-26 04:58] LABS: HEMOGLOBIN 6.9 g/dl (12.0-15.5)
[2023-06-26] MEDS ORDERED: MIDODRINE 5 MG TAB PO PRN (10:15)
[2023-06-26] MEDS: FUROSEMIDE 20MG/2ML VIAL IV ONE (14:07)
[2023-06-26 18:20] LABS: HEMATOCRIT 25.9 % (36.0-47.0); HEMOGLOBIN 8.4 g/dl (12.0-15.5); MEAN CORPUSCULAR HEMOGLOBIN 29.8 pg (27.0-33.0); MEAN CORPUSCULAR HGB CONC 32.4 g/dl (32.0-36.5); MEAN CORPUSCULAR VOLUME 91.8 fl (80.0-96.0); PLATELET COUNT, AUTOMATED 179 10^3/uL (150-450); RED BLOOD COUNT 2.82 10^6/uL (4.00-5.40); WHITE BLOOD COUNT 19.1 10^3/uL (4.0-10.0)
[2023-06-26] MEDS: LACTOBACILLUS ACIDOPHILUS CAP (BACID) PO SCH (18:35)
[2023-06-27] VITALS (24 sets, daily range): BP systolic 89–127; BP diastolic 50–60; TEMP 97.3–100.1; O2SAT 85–100
[2023-06-27 05:07] LABS: BASO % 0.2 % (0.0-1.0); EOS # 0.1 10^3/uL (0.0-0.5); EOS % 0.5 % (0.0-3.0); HEMATOCRIT 24.5 % (36.0-47.0); HEMOGLOBIN 7.7 g/dl (12.0-15.5); LYMPH # 1.1 10^3/uL (1.5-5.0); LYMPH % 7.1 % (24.0-44.0); MEAN CORPUSCULAR HEMOGLOBIN 28.7 pg (27.0-33.0); MEAN CORPUSCULAR HGB CONC 31.4 g/dl (32.0-36.5); MEAN CORPUSCULAR VOLUME 91.4 fl (80.0-96.0); MONO % 6.4 % (2.0-8.0); NEUTROPHILS # 13.3 10^3/uL (1.5-8.5); NEUTROPHILS % 85.2 % (36.0-66.0); PLATELET COUNT, AUTOMATED 177 10^3/uL (150-450); RED BLOOD COUNT 2.68 10^6/uL (4.00-5.40); WHITE BLOOD COUNT 15.6 10^3/uL (4.0-10.0)
[2023-06-27 05:18] LABS: CALCIUM LEVEL 6.6 MG/DL (8.5-10.1); CREATININE FOR GFR 1.9 MG/DL (0.55-1.30); GLOMERULAR FILTRATION RATE 29.1 (>51); MAGNESIUM LEVEL 1.8 MG/DL (1.8-2.4); POTASSIUM SERUM 3.4 MMOL/L (3.5-5.1)
[2023-06-27] MEDS ORDERED: KCL 20MEQ IN 100ML SWI (KRUN) 20 MEQ in IV 1 EA IV SCH (11:00)
[2023-06-27] MEDS: POTASSIUM CHLORIDE 10MEQ SR TABLET PO ONE (11:01)
[2023-06-27] MEDS ORDERED: GLUCOSE 4GM CHEW TABLET PO PRN (13:15)
[2023-06-27] MEDS ORDERED: GLUCAGON INJ 1MG VIAL SC PRN (13:15)
[2023-06-27 14:00] LABS: C REACTIVE PROTEIN QUANTITATIV 9.7 MG/DL (<1.0)
[2023-06-27] MEDS: INSULIN LISPRO (NovoLOG) PER UNIT SC SCH ×2 (17:30→20:36)
[2023-06-27] MEDS: FLUCONAZOLE 100 MG TAB PO SCH (18:27)
[2023-06-27] MEDS: VANCOMYCIN 125MG CAPSULE PO SCH (18:28)
[2023-06-27] MEDS: LOMOTIL 2.5MG/0.025MG TABLET PO SCH (20:57)
[2023-06-27] MEDS: ACETAMINOPHEN 325MG/10.15ML UDC PO PRN (21:14)
[2023-06-28] VITALS (7 sets, daily range): BP systolic 106–117; BP diastolic 55–58; TEMP 98–100.1; O2SAT 94–100
[2023-06-28 04:55] LABS: BASO # 0.1 10^3/uL (0.0-0.2); BASO % 0.5 % (0.0-1.0); EOS # 0.1 10^3/uL (0.0-0.5); EOS % 0.9 % (0.0-3.0); HEMATOCRIT 23.8 % (36.0-47.0); HEMOGLOBIN 7.8 g/dl (12.0-15.5); LYMPH # 1.6 10^3/uL (1.5-5.0); LYMPH % 11.1 % (24.0-44.0); MEAN CORPUSCULAR HEMOGLOBIN 29.9 pg (27.0-33.0); MEAN CORPUSCULAR HGB CONC 32.8 g/dl (32.0-36.5); MEAN CORPUSCULAR VOLUME 91.2 fl (80.0-96.0); MONO # 1.2 10^3/uL (0.0-0.8); MONO % 8.3 % (2.0-8.0); NEUTROPHILS # 11.6 10^3/uL (1.5-8.5); NEUTROPHILS % 78.5 % (36.0-66.0); PLATELET COUNT, AUTOMATED 200 10^3/uL (150-450); RED BLOOD COUNT 2.61 10^6/uL (4.00-5.40); WHITE BLOOD COUNT 14.7 10^3/uL (4.0-10.0)
[2023-06-28 05:10] LABS: ALBUMIN 0.8 G/DL (3.2-5.2); CALCIUM LEVEL 6.6 MG/DL (8.5-10.1); CREATININE FOR GFR 2.39 MG/DL (0.55-1.30); GLOMERULAR FILTRATION RATE 22.3 (>51); MAGNESIUM LEVEL 1.8 MG/DL (1.8-2.4); PHOSPHORUS LEVEL 5.6 MG/DL (2.5-4.9); POTASSIUM SERUM 3.7 MMOL/L (3.5-5.1)
[2023-06-28] MEDS ORDERED: HEPARIN 1,000UNITS/ML 10ML VIAL (FOR RADIOLOGY & DIALYSIS ONLY) XX SCH (06:00)
[2023-06-28] MEDS ORDERED: SODIUM CHLORIDE 0.9% 1000ML IV PRN (06:00)
[2023-06-28] MEDS ORDERED: HEPARIN 1,000UNITS/ML 10ML VIAL (FOR RADIOLOGY & DIALYSIS ONLY) IV PRN (06:00)
[2023-06-28] MEDS: DEXTROSE 50% 50ML SYRINGE IV PRN (09:18)
[2023-06-28] MEDS: DARBEPOETIN 100MCG/0.5ML *DIALYSIS* SYRINGE IV SCH (13:22)
[2023-06-29] VITALS (7 sets, daily range): BP systolic 89–103; BP diastolic 50–57; TEMP 97.8–99.2; O2SAT 93–97
[2023-06-29 05:56] LABS: BASO # 0.1 10^3/uL (0.0-0.2); BASO % 0.6 % (0.0-1.0); EOS # 0.1 10^3/uL (0.0-0.5); EOS % 0.8 % (0.0-3.0); HEMATOCRIT 24.8 % (36.0-47.0); LYMPH # 1.2 10^3/uL (1.5-5.0); LYMPH % 9.7 % (24.0-44.0); MEAN CORPUSCULAR HGB CONC 32.3 g/dl (32.0-36.5); MEAN CORPUSCULAR VOLUME 92.9 fl (80.0-96.0); MONO % 8.7 % (2.0-8.0); NEUTROPHILS # 9.4 10^3/uL (1.5-8.5); NEUTROPHILS % 79.4 % (36.0-66.0); PLATELET COUNT, AUTOMATED 241 10^3/uL (150-450); RED BLOOD COUNT 2.67 10^6/uL (4.00-5.40); WHITE BLOOD COUNT 11.8 10^3/uL (4.0-10.0)
[2023-06-29 06:27] LABS: ALBUMIN 0.8 G/DL (3.2-5.2); BILIRUBIN,TOTAL 0.5 MG/DL (0.3-1.2); CALCIUM LEVEL 6.8 MG/DL (8.5-10.1); CREATININE FOR GFR 1.68 MG/DL (0.55-1.30); GLOMERULAR FILTRATION RATE 33.6 (>51); MAGNESIUM LEVEL 1.7 MG/DL (1.8-2.4); TOTAL PROTEIN 4.8 G/DL (5.7-8.2)
[2023-06-29] MEDS: MAG SULF 1GM/100ML (MAG RUN) 1 GM in IV 1 EA IV SCH (08:28)
[2023-06-30] VITALS (8 sets, daily range): BP systolic 86–98; BP diastolic 48–62; TEMP 97.6–101.4; O2SAT 91–100
[2023-06-30] MEDS ORDERED: HEPARIN 1,000UNITS/ML 10ML VIAL (FOR RADIOLOGY & DIALYSIS ONLY) XX SCH (06:00)
[2023-06-30] MEDS ORDERED: SODIUM CHLORIDE 0.9% 1000ML IV PRN (06:00)
[2023-06-30] MEDS ORDERED: HEPARIN 1,000UNITS/ML 10ML VIAL (FOR RADIOLOGY & DIALYSIS ONLY) IV PRN (06:00)
[2023-06-30 08:33] LABS: BASO # 0.1 10^3/uL (0.0-0.2); BASO % 0.7 % (0.0-1.0); EOS # 0.2 10^3/uL (0.0-0.5); EOS % 1.2 % (0.0-3.0); HEMATOCRIT 23.4 % (36.0-47.0); HEMOGLOBIN 7.4 g/dl (12.0-15.5); LYMPH # 1.3 10^3/uL (1.5-5.0); LYMPH % 9.9 % (24.0-44.0); MEAN CORPUSCULAR HEMOGLOBIN 29.6 pg (27.0-33.0); MEAN CORPUSCULAR HGB CONC 31.6 g/dl (32.0-36.5); MEAN CORPUSCULAR VOLUME 93.6 fl (80.0-96.0); MONO # 0.9 10^3/uL (0.0-0.8); MONO % 6.7 % (2.0-8.0); NEUTROPHILS # 10.8 10^3/uL (1.5-8.5); NEUTROPHILS % 80.8 % (36.0-66.0); PLATELET COUNT, AUTOMATED 231 10^3/uL (150-450); WHITE BLOOD COUNT 13.4 10^3/uL (4.0-10.0)
[2023-06-30 09:09] LABS: ALBUMIN 0.8 G/DL (3.2-5.2); BILIRUBIN,TOTAL 0.5 MG/DL (0.3-1.2); CALCIUM LEVEL 7.2 MG/DL (8.5-10.1); CREATININE FOR GFR 2.43 MG/DL (0.55-1.30); GLOMERULAR FILTRATION RATE 21.9 (>51); POTASSIUM SERUM 4.5 MMOL/L (3.5-5.1); TOTAL PROTEIN 4.9 G/DL (5.7-8.2)
[2023-06-30] MEDS ORDERED: HEPARIN SOD (PORCINE) 5000UNITS/ML 1ML VIAL/SYRINGE IV PRN (11:10)
[2023-06-30] MEDS: HEPARIN DRIP 25,000 UNITS in IV 1 EA IV SCH (21:13)
[2023-06-30] MEDS: ACETAMINOPHEN *IV* 1,000 MG in IV 1 EA IV ONE (22:29)
[2023-07-01] VITALS (8 sets, daily range): BP systolic 96–157; BP diastolic 40–75; TEMP 96.7–100.1; O2SAT 92–99
[2023-07-01 04:20] LABS: INR 1.3; PROTHROMBIN TIME 15.8 SECONDS (12.5-14.5)
[2023-07-01 04:21] LABS: PARTIAL THROMBOPLASTIN TIME 47.1 SECONDS (24.8-34.2)
[2023-07-01] MEDS: INSULIN LISPRO (NovoLOG) PER UNIT SC SCH (06:00)
[2023-07-01] MEDS: HYDROCORTISONE 100MG/2ML VIAL IV STA (08:51)
[2023-07-01] MEDS: MIDODRINE 5 MG TAB PO STA (10:22)
[2023-07-01] MEDS: cefTRIAXone SOD 2 GM in D5W MINI-BAG PLUS 50 ML IV SCH (10:57)
[2023-07-01 11:27] LABS: BASO # 0.1 10^3/uL (0.0-0.2); BASO % 0.4 % (0.0-1.0); EOS # 0.1 10^3/uL (0.0-0.5); EOS % 0.4 % (0.0-3.0); HEMATOCRIT 26.3 % (36.0-47.0); HEMOGLOBIN 8.3 g/dl (12.0-15.5); MEAN CORPUSCULAR HEMOGLOBIN 30.1 pg (27.0-33.0); MEAN CORPUSCULAR HGB CONC 31.6 g/dl (32.0-36.5); MEAN CORPUSCULAR VOLUME 95.3 fl (80.0-96.0); MONO # 0.5 10^3/uL (0.0-0.8); MONO % 2.8 % (2.0-8.0); NEUTROPHILS # 17.3 10^3/uL (1.5-8.5); NEUTROPHILS % 90.2 % (36.0-66.0); PLATELET COUNT, AUTOMATED 226 10^3/uL (150-450); RED BLOOD COUNT 2.76 10^6/uL (4.00-5.40); WHITE BLOOD COUNT 19.2 10^3/uL (4.0-10.0)
[2023-07-01 11:48] LABS: INR 1.33; PROTHROMBIN TIME 16.1 SECONDS (12.5-14.5)
[2023-07-01 11:59] LABS: ALBUMIN 1.1 G/DL (3.2-5.2); BILIRUBIN,TOTAL 0.5 MG/DL (0.3-1.2); CALCIUM LEVEL 7.2 MG/DL (8.5-10.1); CREATININE FOR GFR 1.86 MG/DL (0.55-1.30); GLOMERULAR FILTRATION RATE 29.8 (>51); MAGNESIUM LEVEL 1.9 MG/DL (1.8-2.4); POTASSIUM SERUM 3.7 MMOL/L (3.5-5.1); TOTAL PROTEIN 5.8 G/DL (5.7-8.2)
[2023-07-01] MEDS ORDERED: VANCOMYCIN HCL 1,000 MG, VIAL MATE ADAPTER 1 EACH in NS 250 ML IV SCH (12:30)
[2023-07-01] MEDS ORDERED: HYDROCORTISONE 100MG/2ML VIAL IV SCH (14:00)
[2023-07-01] MEDS: MEROPENEM INJ 1 GM in IV 1 EA IV SCH (14:03)
[2023-07-01] MEDS ORDERED: HEPARIN SOD (PORCINE) 5000UNITS/ML 1ML VIAL/SYRINGE IV PRN (14:15)
[2023-07-01] MEDS ORDERED: LIDOCAINE 1% MDV 20ML VIAL As Ordered ONE (15:00)
[2023-07-01] MEDS: HEPARIN DRIP 25,000 UNITS in IV 1 EA IV SCH (16:48)
[2023-07-01] MEDS: VANCOMYCIN HCL 750 MG, VIAL MATE ADAPTER 1 EACH in D5W 250 ML IV ONE ×2 (16:55→18:13)
[2023-07-01] MEDS ORDERED: SODIUM CHLORIDE 0.9% INJ 10 ML SYR IV PRN (17:05)
[2023-07-01] MEDS: SODIUM CHLORIDE 0.9% INJ 10 ML SYR IV SCH (17:31)
[2023-07-01] MEDS: HYDROCORTISONE 100MG/2ML VIAL IV SCH (17:57)
[2023-07-02 03:54] VITALS: BP 108/72; TEMP 98; O2SAT 98
[2023-07-02 06:44] LABS: BASO # 0.1 10^3/uL (0.0-0.2); BASO % 0.3 % (0.0-1.0); EOS % 0.1 % (0.0-3.0); HEMOGLOBIN 9.2 g/dl (12.0-15.5); LYMPH # 1.8 10^3/uL (1.5-5.0); LYMPH % 7.7 % (24.0-44.0); MEAN CORPUSCULAR HEMOGLOBIN 29.4 pg (27.0-33.0); MEAN CORPUSCULAR HGB CONC 31.7 g/dl (32.0-36.5); MEAN CORPUSCULAR VOLUME 92.7 fl (80.0-96.0); MONO # 0.9 10^3/uL (0.0-0.8); MONO % 3.8 % (2.0-8.0); NEUTROPHILS # 19.9 10^3/uL (1.5-8.5); NEUTROPHILS % 86.9 % (36.0-66.0); PLATELET COUNT, AUTOMATED 241 10^3/uL (150-450); RED BLOOD COUNT 3.13 10^6/uL (4.00-5.40); WHITE BLOOD COUNT 22.9 10^3/uL (4.0-10.0)
[2023-07-02 07:05] LABS: C REACTIVE PROTEIN QUANTITATIV 16.6 MG/DL (<1.0); VANCOMYCIN RANDOM 14.6 UG/ML
[2023-07-02 07:07] LABS: CREATININE FOR GFR 2.25 MG/DL (0.55-1.30); MAGNESIUM LEVEL 1.9 MG/DL (1.8-2.4); POTASSIUM SERUM 4.1 MMOL/L (3.5-5.1)
[2023-07-02 07:15] LABS: PROCALCITONIN 1.31 ng/ml
[2023-07-02 07:44] VITALS: BP 78/52; TEMP 96.6; O2SAT 97
[2023-07-02 08:01] VITALS: BP 80/52
[2023-07-02 09:22] VITALS: BP 68/36
[2023-07-02 09:56] VITALS: BP 68/40
[2023-07-02 10:05] VITALS: BP 66/42
[2023-07-02] MEDS ORDERED: ATROPINE SULFATE 1% OPHTH SOLN 2ML BTL SL PRN (11:50)
[2023-07-02] MEDS ORDERED: HYOSCYAMINE SULFATE 0.125 MG SUBL TABLET PO PRN (11:50)
[2023-07-02] MEDS ORDERED: VANCOMYCIN HCL 1,000 MG, VIAL MATE ADAPTER 1 EACH in D5W 250 ML IV SCH (16:00)
[2023-07-03 06:49] LABS: INR 1.15; PARTIAL THROMBOPLASTIN TIME 26.6 SECONDS (24.8-34.2); PROTHROMBIN TIME 14.4 SECONDS (12.5-14.5)
[2023-07-03] MEDS: ACETAMINOPHEN TAB 650MG DOSE (2X325MG) PO PRN (16:40)
[2023-07-04] MEDS: SODIUM CHLORIDE NASAL 0.65% SPRAY BTL (OCEAN) PRN (06:06)
[2023-07-04] MEDS: NEOSPORIN OINT 0.9 GM PKT TOP ONE (18:04)
[2023-07-07 11:09] LABS: BASO # 0.1 10^3/uL (0.0-0.2); BASO % 0.4 % (0.0-1.0); EOS # 0.4 10^3/uL (0.0-0.5); EOS % 2.6 % (0.0-3.0); HEMATOCRIT 27.1 % (36.0-47.0); HEMOGLOBIN 8.5 g/dl (12.0-15.5); LYMPH # 1.4 10^3/uL (1.5-5.0); LYMPH % 9.9 % (24.0-44.0); MEAN CORPUSCULAR HEMOGLOBIN 29.8 pg (27.0-33.0); MEAN CORPUSCULAR HGB CONC 31.4 g/dl (32.0-36.5); MEAN CORPUSCULAR VOLUME 95.1 fl (80.0-96.0); MONO # 0.6 10^3/uL (0.0-0.8); MONO % 4.4 % (2.0-8.0); NEUTROPHILS # 11.5 10^3/uL (1.5-8.5); NEUTROPHILS % 81.4 % (36.0-66.0); PLATELET COUNT, AUTOMATED 173 10^3/uL (150-450); RED BLOOD COUNT 2.85 10^6/uL (4.00-5.40); WHITE BLOOD COUNT 14.1 10^3/uL (4.0-10.0)
[2023-07-07 11:42] LABS: ALKALINE PHOSPHATASE 136 U/L (46-116); ALT/SGPT < 9 U/L (7.0-40); AST/SGOT 14 U/L (<34); BILIRUBIN,TOTAL 0.4 MG/DL (0.3-1.2); BLOOD UREA NITROGEN 61 MG/DL (9-23); CALCIUM LEVEL 7.3 MG/DL (8.5-10.1); CARBON DIOXIDE LEVEL 25 MMOL/L (20-31); CHLORIDE LEVEL 103 MMOL/L (98-107); CREATININE FOR GFR 4.54 MG/DL (0.55-1.30); GLOMERULAR FILTRATION RATE 10.7 (>51); GLUCOSE, FASTING 129 MG/DL (60-100); POTASSIUM SERUM 4.9 MMOL/L (3.5-5.1); SODIUM LEVEL 138 MMOL/L (136-145); TOTAL PROTEIN 5.7 G/DL (5.7-8.2)
[2023-07-07] MEDS ORDERED: diphenhydrAMINE 25MG CAP PO PRN (21:10)
[2023-07-09] MEDS: LORazepam 1 MG TAB PO PRN (20:52)
[2023-07-09] MEDS: MORPHINE 10MG/0.5ML ORAL CONCENTRATE SOLUTION U/D SL PRN (22:54)
[2023-07-12] MEDS: SIMETHICONE 80MG CHEW TAB PO PRN (02:39)
[2023-07-12] MEDS: traMADol 50 MG TAB PO ONE (22:05)
[2023-07-13] MEDS: traMADol 50 MG TAB PO PRN (15:12)
[2023-07-16] MEDS: CALCIUM CARBONATE 500 MG CHEW U/D PO ONE (20:11)
[2023-07-17] MEDS ORDERED: MAALOX 30 ML SUSP *UDC PO PRN (11:50)
[2023-07-17] MEDS: MORPHINE 10MG/0.5ML ORAL CONCENTRATE SOLUTION U/D SL PRN (21:58)
[2023-07-18] MEDS: ONDANSETRON 4MG ORAL DISINTEGRATING TAB PO PRN (09:05)
[2023-07-19] MEDS ORDERED: PROMETHAZINE 25 MG TAB PO PRN (13:50)
[2023-07-22] MEDS: SCOPOLAMINE 1MG TRANSDERMAL PATCH TOP PRN (08:57)
== END 2023-07-24 19:04 | disposition expired | DRG 720 ==
LOC: EDBD 17:06 → M ED 17:06 → M ED INP 06-16 03:43 → ENRESERV 06-16 04:01 → M ICU 06-16 05:39 → M PCU 06-29 16:05 → M MSPAV 07-02 16:46
PROVIDERS: ADMIT Internal Medicine; ATTEND Internal Medicine
PROC: 30233N1 Transfusion of Nonautologous Red Blood Cells into Peripheral Vein, Percutaneous Approach (ICD-10-PCS; 2023-06-17)
PROC: 30233R1 Transfusion of Nonautologous Platelets into Peripheral Vein, Percutaneous Approach (ICD-10-PCS; 2023-06-17)
PROC: 6A601ZZ Phototherapy of Skin, Multiple (ICD-10-PCS; principal; 2023-06-23)
PROC: 05HB33Z Insertion of Infusion Device into Right Basilic Vein, Percutaneous Approach (ICD-10-PCS; 2023-07-01)
DX: A41.9 Sepsis, unspecified organism (principal); D65 Disseminated intravascular coagulation [defibrination syndrome]; G93.41 Metabolic encephalopathy; I96 Gangrene, not elsewhere classified; I11.0 Hypertensive heart disease with heart failure; G62.81 Critical illness polyneuropathy; R65.21 Severe sepsis with septic shock; I50.32 Chronic diastolic (congestive) heart failure; R57.0 Cardiogenic shock; N17.9 Acute kidney failure, unspecified; A04.72 Enterocolitis due to Clostridium difficile, not specified as recurrent; E87.21 Acute metabolic acidosis; I27.20 Pulmonary hypertension, unspecified; I27.81 Cor pulmonale (chronic); N18.6 End stage renal disease; I48.92 Unspecified atrial flutter; L97.529 Non-pressure chronic ulcer of other part of left foot with unspecified severity; L97.909 Non-pressure chronic ulcer of unspecified part of unspecified lower leg with unspecified severity; N04.9 Nephrotic syndrome with unspecified morphologic changes; E11.65 Type 2 diabetes mellitus with hyperglycemia; R13.12 Dysphagia, oropharyngeal phase; Z93.1 Gastrostomy status; I48.91 Unspecified atrial fibrillation; I25.10 Atherosclerotic heart disease of native coronary artery without angina pectoris; L03.116 Cellulitis of left lower limb; N39.0 Urinary tract infection, site not specified; B96.20 Unspecified Escherichia coli [E. coli] as the cause of diseases classified elsewhere; Z79.82 Long term (current) use of aspirin; Z79.899 Other long term (current) drug therapy; Z79.4 Long term (current) use of insulin; Z88.8 Allergy status to other drugs, medicaments and biological substances; Z51.5 Encounter for palliative care; B37.2 Candidiasis of skin and nail; Z89.429 Acquired absence of other toe(s), unspecified side